=== PATIENT | female | born 1980 | race Caucasian/White ===

== ENCOUNTER 2020-02-02 07:26 | Outpatient (RCR) | payer OTHER, SELFPAY | END 2020-04-30 23:59 | disposition home or self-care (01) | LOC: ANHLAB 07:26 | PROVIDERS: Visit Provider Obstetrics & Gynecology | DX: O20.0 Threatened abortion (principal); Z3A.00 Weeks of gestation of pregnancy not specified | CPT/HCPCS: 36415; 84702; 85461 ==

== ENCOUNTER 2020-09-03 01:21 | Day surgery (SDC) | payer OTHER, SELFPAY ==
[2020-08-22 14:39] VITALS: BMI 24.2
[2020-09-03 06:27] VITALS: BP 102/72; PULSE 71; RESP 16; TEMP 35.8; O2SAT 100
[2020-09-03] MEDS: LACTATED RINGERS 1,000 ML 150 ML IV CONT ×2 (06:30→07:43)
--- NOTE | 2020-09-03 07:25 | PM.HPGS ---
History of Present Illness History of Present Illness Consent: Risks, benefits, and alternatives have been discussed and questions answered. Patient agrees to proceed with procedure. Chief complaint: change in bowel habits Narrative: Carmen Zapata is a 39 year old female with history of constipation, several weeks ago had bout of diarrhea. Review of Systems Constitutional: Constitutional: Denies headache(s) and Denies weakness Eyes: Eyes: Denies blurry vision ENT: Reports Normal hearing present, Denies headache(s) and Denies neck pain Cardiovascular: Cardiovascular: Denies chest pain and Denies dyspnea Respiratory: Respiratory: Denies dyspnea Gastrointestinal: Gastrointestinal: Reports no additional gastrointestinal complaints Genitourinary: Genitourinary: Denies dysuria Musculoskeletal: Musculoskeletal: Denies neck pain Integumentary/Breasts: Skin/Breast: Denies dry skin Neurologic: Reports Normal hearing present, Denies headache(s) and Denies weakness Psychiatric: Psychiatric: Denies anxiety Endocrine: Endocrine: Denies change in body appearance Hematologic/Lymphatic: Hematologic/Lymphatic: Denies easy bleeding Allergic/Immunologic: Allergic/Immunologic: Denies urticaria PMFSH Past Medical History Medical History (Updated 09/03/20 @ 07:25 by Tashi Barajas MD) Constipation Psoriasis Uterine polyp Social History Social History Smoking status: Never smoker Alcohol intake: current Drinks per week: 2 Alcohol use details: WINE Substance use: never Substance use type: does not use Living arrangements: with family Spiritual care concerns: No Meds Home Medications and Allergies Home Medications Medication Instructions Recorded Confirmed Type Elderberry/Zinc 1 tab-cap PO DAILY 08/22/20 09/03/20 History cholecalciferol (vitamin D3) 5,000 unit PO DAILY 08/22/20 09/03/20 History [Vitamin D3] clobetasol 1 applic TOPICAL EVERY OTHER DAY 08/22/20 09/03/20 History Allergies Allergy/AdvReac Type Severity Reaction Status Date / Time clindamycin Allergy Intermediate Hives Verified 09/03/20 06:26 sulfamethoxazole Allergy Intermediate Hives Verified 09/03/20 06:26 trimethoprim Allergy Intermediate Hives Verified 09/03/20 06:26 Vital Signs Vital Signs - 24 hr 09/03/20 06:27 Temperature 96.4 F L Pulse Rate 71 Respiratory Rate 16 Blood Pressure 102/72 Pulse Oximetry 100 Exam Const: General: comfortable and no acute distress HENMT: General nose exam: Normal nares present Eyes: General: appearance normal, both eyes and all related structures Neck: Neck: no JVD Resp: Auscultation: clear to auscultation bilaterally Cardio: Rate: regular rate Rhythm: regular rhythm GI: Inspection: non-distended GI Palp: Yes Soft to palpation Skin: General skin exam: normal color Neuro: General: gait normal Speech: normal speech Extrem: General: normal to inspection Psych: Mental Status: mental status grossly normal Assessment and Plan Assessment and plan (1) Constipation: Code(s): K59.00 - Constipation, unspecified Status: Inactive Assessment and Plan: colonoscopy
[2020-09-03 07:45] VITALS: BP 97/52; PULSE 75; RESP 20; O2SAT 99
[2020-09-03 07:55] VITALS: BP 116/75; PULSE 62; RESP 20; O2SAT 100
[2020-09-03 08:05] VITALS: BP 117/76; PULSE 51; RESP 20; O2SAT 100
[2020-09-03 08:15] VITALS: PULSE 62
== END 2020-09-03 08:17 | disposition home or self-care (01) ==
PROVIDERS: PCP Physician Assistant; Visit Provider Internal Medicine Gastroenterology
PROC: 0DJD8ZZ Inspection of Lower Intestinal Tract, Via Natural or Artificial Opening Endoscopic (ICD-10-PCS; CPT 45378; principal; 2020-09-03 07:30)
DX: K59.00 Constipation, unspecified (principal); L40.9 Psoriasis, unspecified
CPT/HCPCS: 45378; J2704; J7120

== ENCOUNTER 2020-09-18 08:58 | Outpatient (CLI) | payer OTHER, SELFPAY ==
--- NOTE | ~2020-09-18 | MM_ITS ---
EXAMINATION: MM screening verna BI w babatunde HISTORY: Screening mammogram TECHNIQUE: Craniocaudal and mediolateral oblique 3-D tomosynthesis images were obtained and synthetic 2-D images were generated. Bilateral rotated lateral CC views. ....CAD analysis was submitted and in terpreted. COMPARISON: 02/23/2018 bilateral diagnostic digital mammogram and bilateral Limited breast ultrasound 06/16/2017 bilateral diagnostic digital mammogram and limited left breast ultrasound BREAST PARENCHYMAL COMPOSITION: The breasts are heterogeneously dense, which may obscure small masses . FINDINGS: There is no evidence of suspicious mass, calcification, or architectural distortion to sugg est malignancy in either breast. There has been no suspicious interval change. IMPRESSION: 1. No mammographic evidence of malignancy. 2. Recommend routine screening mammography in one year. BI-RADS Category 1: Negative Reviewed, dictated and finalized at location A.
== END 2020-09-18 08:59 | disposition home or self-care (01) ==
LOC: ANHIMG 09:01
PROVIDERS: PCP Physician Assistant; Visit Provider Obstetrics & Gynecology
DX: Z12.31 Encounter for screening mammogram for malignant neoplasm of breast (principal)
CPT/HCPCS: 77063; 77067

== ENCOUNTER 2020-11-01 08:00 | Outpatient (CLI) | payer OTHER, SELFPAY ==
--- NOTE | ~2020-11-01 | US_ITS ---
EXAMINATION: US abdomen complete DATE: 11/01/2020 08:25 INDICATION: Left-sided abdominal pain TECHNIQUE: Multiple grayscale and Doppler ultrasound images of the abdomen were obtained. COMPARISON: None available FINDINGS: The head and body of the pancreas are normal. The pancreatic tail is obscured by bowel gas. The liver is normal with normal echogenicity and echotexture. No surface nodularity. Normal hepatope benji flow in the main portal vein. Stones are present in the nondistended gallbladder. There is no per icholecystic fluid or gallbladder wall thickening. The normal common bile duct measures 3 mm. There w as no sonographic Urias sign. The visualized portions of the aorta and inferior vena cava are normal . The right kidney measures 10.2 x 4.2 x 4.8 cm. The left kidney measures 10.5 x 4.2 x 4.9 cm. The kidn eys demonstrate normal parenchymal echogenicity. There is no hydronephrosis. The spleen is normal in appearance and measures 10.7 cm. IMPRESSION: 1. Cholelithiasis without evidence of cholecystitis. Reviewed, dictated and finalized at location A.
== END 2020-11-01 08:01 | disposition home or self-care (01) ==
PROVIDERS: PCP Physician Assistant; Visit Provider Physician Assistant
DX: R10.9 Unspecified abdominal pain (principal); K80.20 Calculus of gallbladder without cholecystitis without obstruction
CPT/HCPCS: 76700

== ENCOUNTER → 2020-11-08 18:24 | Outpatient (CLI) | payer OTHER, SELFPAY ==
--- NOTE | ~2020-11-08 | XR_ITS ---
EXAMINATION: XR ribs LT 2V w CXR 2V DATE: 11/08/2020 18:47 INDICATION: Pleurodynia with left rib pain TECHNIQUE: Frontal and lateral views of the chest and 3 views of the left ribs were obtained. COMPARISON: Chest radiograph dated FINDINGS: No rib fractures identified. Lungs are clear with no focal airspace opacities, pulmonary edema, pleur al effusion or pneumothorax. Cardiomediastinal silhouette is normal. Bone island at the left glenoid. IMPRESSION: 1. No rib fracture or acute cardiopulmonary disease. Reviewed, dictated and finalized at location A.
== END ==
PROVIDERS: PCP Physician Assistant; Visit Provider Physician Assistant
DX: R07.81 Pleurodynia (principal)
CPT/HCPCS: 71046; 71100

== ENCOUNTER 2021-09-23 07:34 | Outpatient (CLI) | payer BC, SELFPAY ==
--- NOTE | ~2021-09-23 | MM_ITS ---
EXAMINATION: MM screening verna BI w babatunde HISTORY: Screening TECHNIQUE: Craniocaudal and mediolateral oblique 3-D tomosynthesis images were obtained and synthetic 2-D images were generated. CAD analysis was submitted and interpreted. COMPARISON: Comparison to multiple prior studies sequentially, with oldest reviewed study dated 06/16. BREAST PARENCHYMAL COMPOSITION: The breasts are extremely dense, which lowers the sensitivity of mamm ography FINDINGS: There is no evidence of suspicious mass, calcification, or architectural distortion to sugg est malignancy in either breast. There has been no suspicious interval change. IMPRESSION: 1. No mammographic evidence of malignancy. 2. Recommend routine screening mammography in one year. BI-RADS Category 1: Negative Reviewed, dictated and finalized at location A.
== END 2021-09-23 07:35 | disposition home or self-care (01) ==
LOC: ANHIMG 07:35
PROVIDERS: PCP Physician Assistant; Visit Provider Obstetrics & Gynecology
DX: Z12.31 Encounter for screening mammogram for malignant neoplasm of breast (principal)
CPT/HCPCS: 77063; 77067

== ENCOUNTER 2022-09-15 15:11 | Outpatient (CLI) | payer BC, SELFPAY ==
--- NOTE | ~2022-09-15 | MM_ITS ---
EXAMINATION: MM screening verna BI w babatunde HISTORY: Screening mammogram TECHNIQUE: Craniocaudal and mediolateral oblique 3-D tomosynthesis images were obtained and synthetic 2-D images were generated. CAD analysis was submitted and interpreted. COMPARISON: No prior mammogram is available for comparison at this institution. BREAST PARENCHYMAL COMPOSITION: FINDINGS: There is no evidence of suspicious mass, calcification, or architectural distortion to sugg est malignancy in either breast. There has been no suspicious interval change. IMPRESSION: 1. No mammographic evidence of malignancy. 2. Recommend routine screening mammography in one year. BI-RADS Category 1: Negative Reviewed, dictated and finalized at location A.
== END 2022-09-15 15:12 | disposition home or self-care (01) ==
LOC: ANHIMG 15:15
PROVIDERS: PCP Obstetrics & Gynecology; Visit Provider Physician Assistant
DX: Z12.31 Encounter for screening mammogram for malignant neoplasm of breast (principal)
CPT/HCPCS: 77063; 77067

== ENCOUNTER 2023-08-11 16:28 | Emergency (ER) | payer BC, SELFPAY ==
--- NOTE | 2023-08-11 16:33 | ED.URI ---
HPI - URI/Sore Throat General Chief Complaint: Upper Respiratory Infection Stated Complaint: congestion,sinus drainage Time Seen by Provider: 08/11/23 16:42 Source: patient, RN notes reviewed and old records reviewed Mode of arrival: ambulatory Limitations: no limitations History of Present Illness HPI Narrative: 42-year-old female presents to the [facility] with congestion and sinus drainage for 4 weeks States she has been taking elderberry Reports that whenever she mows her grass the symptoms get worse. Did try 1 dose of cold and sinus medication today Onset (ago): week(s) (4) Related Data Home Medications Medication Instructions Recorded Confirmed clobetasol 0.05 % topical ointment 1 applic topical EVERY OTHER DAY 08/22/20 08/11/23 Allergies Allergy/AdvReac Type Severity Reaction Status Date / Time clindamycin Allergy Intermediate Hives Verified 08/11/23 16:43 sulfamethoxazole Allergy Intermediate Hives Verified 08/11/23 16:43 trimethoprim Allergy Intermediate Hives Verified 08/11/23 16:43 Review of Systems Review of Systems: All systems reviewed & are unremarkable except as noted in HPI and below Constitutional: Constitutional: Reports no additional constitutional complaints Eyes: Eyes: Reports no additional eye complaints ENT: Reports as per HPI, Reports nasal congestion and Reports sinus pressure Cardiovascular: Cardiovascular: Reports no additional cardiovascular complaints, Denies chest pain and Denies dyspnea Respiratory: Respiratory: Reports no additional respiratory complaints, Denies chest congestion, Denies cough and Denies dyspnea Gastrointestinal: Gastrointestinal: Reports no additional gastrointestinal complaints, Denies abdominal pain, Denies nausea and Denies vomiting Musculoskeletal: Musculoskeletal: Reports no additional musculoskeletal complaints Integumentary/Breasts: Skin/Breast: Reports system reviewed and no additional complaints, except as docu Neurologic: Reports system reviewed and no additional complaints, except as documented Psychiatric: Psychiatric: Reports no additional psychiatric complaints Allergic/Immunologic: Allergic/Immunologic: Reports no additional allergic/immunologic complaints PMFSH Past Medical History Medical History Constipation Psoriasis Uterine polyp Social History Social History Smoking status: Never smoker Alcohol intake: current Drinks per week: 2 Alcohol use details: WINE Substance use: never Substance use type: does not use Living arrangements: with family Spiritual care concerns: No Comments At the time of my signature, I reviewed and agree with the nursing past medical, surgical, social, and family history. There is no relevant family history pertinent to the patient complaint. Exam Const: General: cooperative, healthy appearing, comfortable, no acute distress, well developed, alert and well nourished Nutritional Appearance: well nourished Orientation/consciousness: patient oriented x3 Limitations: no limitations HENMT: Head: normal to inspection Ears: hearing grossly normal bilaterally, external ears normal, TM's normal bilaterally, EAC's normal, mastoids normal and no periauricular adenopathy Face/Nose/Sinus: Normal external nose present, Normal nares present, Normal nasal mucous membranes and turbinates present, normal facial exam and face symmetric Face and sinus: normal facial exam and face symmetric Mouth: Yes Normal oral and palatal mucosa present, Yes lip normal and Yes moist mucous membranes Throat: posterior oropharynx normal, tonsils normal, uvula midline and postnasal drainage Eyes: General: appearance normal, both eyes and all related structures Alignment and Position: alignment normal Periorbital: periorbital findings normal Pupils: Equal, round and reactive pupils present EOM: EOMs intact bilater
[2023-08-11 16:35] VITALS: BP 119/79; PULSE 70; RESP 16; TEMP 36.3; O2SAT 100
== END 2023-08-11 17:25 | disposition home or self-care (01) ==
PROVIDERS: Emergency Provider Nurse Practitioner; PCP Physician Assistant
DX: J32.9 Chronic sinusitis, unspecified (principal); L40.9 Psoriasis, unspecified
CPT/HCPCS: 99213; G0463

== ENCOUNTER 2023-10-13 07:18 | Outpatient (CLI) | payer BC, SELFPAY ==
--- NOTE | ~2023-10-13 | MM_ITS ---
EXAMINATION: MM screening verna BI w babatunde HISTORY: Screening TECHNIQUE: Craniocaudal and mediolateral oblique 3-D tomosynthesis images were obtained and synthetic 2-D images were generated. CAD analysis was submitted and interpreted. COMPARISON: Comparison to multiple prior studies sequentially, with oldest reviewed study dated 06/16. BREAST PARENCHYMAL COMPOSITION: Dense: The breasts are heterogeneously dense, which may obscure small masses FINDINGS: There is no evidence of suspicious mass, calcification, or architectural distortion to sugg est malignancy in either breast. There has been no suspicious interval change. IMPRESSION: 1. No mammographic evidence of malignancy. 2. Recommend routine screening mammography in one year. BI-RADS Category 1: Negative Reviewed, dictated and finalized at location B.
== END 2023-10-13 07:19 | disposition home or self-care (01) ==
LOC: ANHIMG 07:19
PROVIDERS: PCP Physician Assistant; Visit Provider Nurse Practitioner
DX: Z12.31 Encounter for screening mammogram for malignant neoplasm of breast (principal)
CPT/HCPCS: 77063; 77067

== ENCOUNTER 2024-09-22 11:33 | Outpatient (CLI) | payer BC, SELFPAY ==
--- NOTE | ~2024-09-22 | XR_ITS ---
HISTORY: CHRONIC MEDIAL POSTERIOR RIGHT KNEE PAIN WORSEN PAST WEEK COMPARISON: None TECHNIQUE: 3 views of the right knee were performed FINDINGS: No acute or subacute fracture. Medial tibiofemoral joint space narrowing is identified. Moderate suprapatellar joint effusion is identified. The infrapatellar joint space is clear. Narrowing of the patellofemoral joint space is noted. 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 Reviewed, dictated and finalized at location A. 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
== END 2024-09-22 11:34 | disposition home or self-care (01) ==
PROVIDERS: PCP Physician Assistant; Visit Provider Physician Assistant
DX: M17.11 Unilateral primary osteoarthritis, right knee (principal); M25.461 Effusion, right knee
CPT/HCPCS: 73562

== ENCOUNTER 2024-10-20 07:39 | Outpatient (CLI) | payer BC, SELFPAY ==
--- NOTE | ~2024-10-20 | MM_ITS ---
EXAMINATION: screening [facility] BI w babatunde INDICATION: Asymptomatic, referred for screening mammogram COMPARISON: 10/13/2023 through 09/18/2020 TECHNIQUE: Digital Breast Tomosynthesis CC, MLO views of Both breasts were obtained with computer-ai ded detection to assist in interpretation of the study. FINDINGS: The breasts are heterogeneously dense, which may obscure small masses. There is a superficial asymmetry seen on the cc view in the Lateral left at anterior depth. Elsewhere, there are no mammographic features of malignancy. IMPRESSION: 1. Left breast Asymmetry. 2. No evidence of malignancy in the Right breast. RECOMMENDATION: Left breast Diagnostic mammogram with true lateral, appropriate spot compression views and an ultraso und if needed. BI-RADS Category 0: Incomplete: Needs additional imaging evaluation. Reviewed, dictated and finalized at location B. IMPRESSION: 1. Left breast Asymmetry. 2. No evidence of malignancy in the Right breast. RECOMMENDATION: Left breast Diagnostic mammogram with true lateral, appropriate spot compressio n views and an ultrasound if needed. BI-RADS Category 0: Incomplete: Needs additional imaging evaluation.
--- OUTSIDE RECORDS SUMMARY | 2024-10-20 07:44 | XMS_ITS | Data Portability ---
Author Organization [place] - [employer] , [employer] [facility] Address [address] [place] [address] Assessment Encounter Date Assessment Date Assessment LastModified by Organization Details LastModified Time 03/24/2024 03/24/2024 Ddx: Viral Conjunctivitis, Bacterial Conjunctivitis, Allergic Conjunctivitis A: Highly suggestive of a stye versus a clogged Meimobian gland. P: Provided counseling to the patient as noted below: Avoid contact lens use until condition totally resolves Avoid use of contaminated eye drops or makeup Good hand hygiene Monitor for eye pain, continued eye discharge, or change in vision Counseled on the importance of follow up if symptoms not improving with recommended treatment plan. Patient to be seen for repeat evaluation if symptoms worsen, counseled on red flag symptoms to indicate need for emergent follow up. Patient expressed understanding and agreement with treatment plan as outlined. Not available 03/24/2024 10:53:34 Plan of Treatment Reminders Order Date Submit Date Provider Last Modified By Organization Details Last Modified Time Details Appointments None record ed. Lab None record ed. Referral None record ed. Procedures None record ed. Surgeries None record ed. Imaging None record ed. Medication Orders None record ed. Patient TargetsNo targets recorded. Patient Instructions Encounter Date Encounter Id Patient Instructions Last Modified By Organization Details Last Modified Time 03/24/2024 [id number] styes and chalazia: care instructions Not available 03/24/2024 10:50:39 Avoid contact le ns use until condition totally resolves Avoid use of contaminated eye drops or makeup Good hand hygiene Monitor for eye pain, continued eye discharge, or change in vision Counseled on the importance of follow up if symptoms not improving with recommended treatment plan. Patient to be seen for repeat evaluation if symptoms worsen, counseled on red flag symptoms to indicate need for emergent follow up. Patient expressed understanding and agreement with treatment plan as outlined. Not available 03/24/2024 10:50:38 Reason for Referral None Reported. Problems No Known Problems Medical Equipment None Reported. Allergies Allergen ID Allergen Name Allergen Category Reaction Reaction Severity Criticality Documentation Date Start Date Code Code System Note Provider Name and Address Organization Details Recorded Time 200286 sulfameth oxazole / trimethop rim medicatio n Not available Not available Not available 03/24/2024 34977 RxNorm Not Available Included [facility] 10:13:05 [id number] clindamyc in Not available Not available Not available Not available 03/24/2024 2582 RxNorm Not Available Included [facility] 10:13:05 Medications Name Sig Start Date Stop Date Status Note LastModified by Organization Details LastModified Time nitrofuranto in monohydrate/ macrocrystal s 100 mg capsule active Not Available Not Available Not Available UNLISTED MEDICATION [Migrated medication name:] Fluocinonid e-E topical::as needed on scalp- 2x we active Not Available Not Available No t Available UNLISTED MEDICATION [Migrated medication name:] clobetasoL topical::ev arthur other day active Not Available Not Available No t Available Rain Allergy active Not Available Not Available Not Available Vitals Date Recorded Body height Body mass index (BMI) Body weight Provider Name and Address Organization Details Last Updated DateTime 03/24/2024 167.64 cm 25.8 kg/m2 70150.78 g DEAN Nolasco [address] [place] [address] [address], [address], [place] - Included [facility] 03/24/2024 10:41:19 Social History None recorded. Functional Status None recorded. Mental Status None recorded. Family History Nothing Reported. Medical History No medical history recorded. Gynecological HistoryNo gynecological history recorded. Obstetrics History GPAL:G 0 P 0 0 0 0 Past Encounters Encounter ID Performer Location Encounter Start Date Encounter Closed Date Diagnosis/Indication Diagnosis SNOMED-CT Code Diagnosis ICD10 Code Diagnosis Note [id number] DEAN Nolasco [facility] [address] [place] [address] 03/24/2024 10:39:46 03/24/2024 16:50:37 Hordeolum externum of lower eyelid of right eye [id number] 22128 H00.012 Health Concerns Section Related Observation LastModified by Organization Detai ls LastModified Time None Recorded Concern Status LastModified by Organization Details LastModified Time None Recorded Advance Directives Directive None Recorded Payers Insurance Date Sequence Insurance Name Policy Number Policy Kline Covered Member ID Kline Member ID Guarantor Name 03/24/2024 1 *SELF PAY* Carmen Zapata [place] Carmen Zapata 03/24/2024 1 *SELF PAY* Ca Benny Notes Date Note Type Note Provider Name and Address Organization Details Recorded Time 03/24/2024 text/html ROS as noted in the HPI Call connected, patient greeted. Patient name , location, and phone number confirmed. Verbal consent obtained to treat this patient via the telemedicine/video platform. Patient understands that there are limitations to my evaluation. Clinician attests that the clinician is physically located in the following state at the time of visit: [place] Onset and duration of symptoms: The patient reports that she has woke up with right lower eyelid discomfort that started yesterday. She has had URI symptoms over the past few weeks. She has tried lubricating drops with no relief. Eye pain: NoItchiness: NoRedness: NoWatering: NoDischarge: NoMattering: NoCrusting: YesChange in vision: NoFB sensation: NoGritty: NoPhotophobia: NoCold symptoms: YesNasal drainage: YesFever (Tmax): NoAdditional symptoms: No OTC medications used: Lubricating Eye DropsRecent topical antibiotic or eye drops used: Lubricating Eye DropsHistory of contact lens use: NoHistory of past conjunctivitis: YesHistory of allergies, asthma, seasonal/allergic rhinitis: Yes- AllergiesIf YES, medications used:History of recent URI: YesHistory of recent eye trauma: NoHistory of glaucoma: No : NoBreastfeeding: No DEAN Nolasco [address] [facility] [address], [place], [address], [place] [facility] 03/24/2024 10:53:37 OBGyn Episode No OBEpisode recorded.
--- OUTSIDE RECORDS SUMMARY | 2024-10-20 07:44 | XMS_ITS | Clinical Summary ---
Author Organization [facility] Address [address] [place] [address] Care Team Providers Care Surgery Attendant Name Role Phone Daniella Toscano Primary Care Pr ovider Maria Del Rosario Chen MD Unavailable [phone] [facility],non-owned Affiliates and Associated Physician Practices is amultiple site organization consisting of ambulatory clinics and hospital sitesin [place], [place], [place] and [place]. This disclosure is being madepursuant to the Care Everywhere program and may not contain all information available regarding this patient. Last updated 17.[facility] Allergies Active Allergy Reactions Criticality Noted Date Comments Bactrim Rash 11/09/2008 Sulfamethoxazole W-Trimethoprim Itching 11/28 Clindamycin Itching 12/11/2015 Medications * Be aware that medications may not be up to date on this document. Alwaysverify current medications with the patient. MINOCYCLINE HCL POIndications: Muscle relaxation Take by mouth. As directed Active acetaminophen (TYLENOL) 325 MG tablet Take 650 mg by mouth every 4 hours as needed. Maximum allowable Acetaminophen amount = 4 Grams / 24 hours. Active Loperamide HCl (IMODIUM PO) Take 1 Tab by mouth as needed. 0 Active Norgestim-Eth Estrad Triphasic (NORGESTIMATE- ETHINYL ESTRADIOL PO) Take by mouth as directed Active Active Problems Problem Noted Date Diagnosed Date Acne 04/05/2009 Syncope and collapse 11/09/2008 Family History Medical History Relation Name Comments Hypercholesterolemia Father Hypertension Mother Hypercholesterolemia Sister Relation Name Status Comments Father Mother Sister Social History Tobacco Use Types Packs/Day Years Used Date Smoking Tobacco: Never Smokeless Tobacco: Never Tobacco Cessation:Counseling Given: No Alcohol Use Standard Drinks/Week Comments Yes 0 (1 standard drink = 0.6 oz pure alcohol) glass of wine or gin few times per week Comments No Sex and Gender Information Value Date Recorded Sex Assigned at Not on file Legal Sex Female 12:02 PM CDT Gender Identity Not on file Sexual Orientation Not on file Last Filed Vital Signs Vital Sign Reading Time Taken Comments Blood Pressure 127/80 06/18/2016 6:52 PM CDT Pulse 72 06/18/2016 6:52 PM CDT Temperature 36.7 C (98.1 F) 06/18/2016 6:52 PM CDT Respiratory Rate 15 06/18/2016 6:52 PM CDT Oxygen Saturation 100% 06/18/2016 6:52 PM CDT Inhaled Oxygen Concentration - - Weight 70.3 kg (155 lb) 06/18/2016 3:01 PM CDT Height 167.6 cm (5' 6) 06/18/2016 3:01 PM CDT Body Mass Index 25.02 06/18/2016 3:01 PM CDT Plan of Treatment Health Maintenance Due Date Last Done Comments LIPID TESTING 1980 MAMMOGRAM 1980 HIV SCREENING 12/16/1995 HEPATITIS C SCREENING 12/11/1998 DTAP/TDAP/TD VACCINES (1 - Tdap) 12/16/1999 HEPATITIS B VACCINE (1 of 3 - 19+ 3-dose series) 12/16/1999 HPV VACCINE (1 - 3-dose SCDM series) 12/16/2007 COVID-19 VACCINE ( - 2023-2 5 season) 2023 DEPRESSION SCREENING 03/30/2024 INFLUENZA VACCINE (#1) 2024 ZOSTER VACCINE (1 of 2) 2030 HIB VACCINE Aged Out No longer eligi ble based on patient's age to complete this topic MENINGOCOCCAL (Group B) VACC INE SHARED DECISION-MAKING Aged Out No longer eligibl e based on patient's age to complete this topic MENINGOCOCCAL GROUPS A/C/Y/W VACCINE Aged Out No longer eligible b ased on patient's age to complete this topic PNEUMOCOCCAL VACCINE Aged Out No long er eligible based on patient's age to complete this topic Insurance [employer] Care Teams Surgery Attendant Relationship Specialty Start Date End Date Daniella Toscano PA [address] [place] [id number] PCP - General Physician House Mover Helper 12/11/15 [place] [address] [facility] [address] [place] [id number] 12/11/15
--- OUTSIDE RECORDS SUMMARY | 2024-10-20 07:44 | XMS_ITS | Encounter Summary ---
Author Organization [facility] Address [address] [place] [address] Care Team Providers Care Respiratory Supervisor Name Role Phone Camryn Alonzo MD Primary Care Provider [phone] Encounter Details Date Type Department Care Team (Late st Contact Info) Description 12/18/1998 Outpatient Historical [facility] 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
--- OUTSIDE RECORDS SUMMARY | 2024-10-20 07:44 | XMS_ITS | Encounter Summary ---
Author Organization [facility] Address [address] [place] [address] Care Team Providers Care Flow Floor Attendant Name Role Phone Camryn Alonzo MD Primary Care Provider [phone] Encounter Details Date Type Department Care Team (Late st Contact Info) Description 01/22/1999 Outpatient Historical [facility] 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
--- OUTSIDE RECORDS SUMMARY | 2024-10-20 07:44 | XMS_ITS | Clinical Summary ---
Author Organization [facility] Fredy Sawyer Address [address] [place] [address] Care Team Providers Care Viticulturist Name Role Phone Camryn Alonzo MD Primary Care Provider [phone] Allergies Active Allergy Reactions Criticality Noted Date Comments Clindamycin Hives High 07/12/2012 Sulfamethoxazole-Trimethoprim Hives High 2011 Medications NORGESTIMATE-ETH INYL ESTRADIOL (ORTHO-CYCLEN, 28, ORAL) Take by mouth. Active Lactobac no.41/Bifidobact no.7 (PROBIOTIC-10 ORAL) Take by mouth daily. Active homeopathic drugs (ENZYME ORAL) Take by mouth daily. Active Active Problems Problem Noted Date Diagnosed Date Breast lump 04/15/2018 Allergic rhinitis 10/20/2012 Acne 05/27/2012 IBS (irritable bowel syndrome) 05/27/2012 Family History Medical History Relation Name Comments High Cholesterol Father Liver Disease Father Breast Cancer Maternal Grandmother Melanoma Maternal Grandmother Heart Disease Mother Colon Cancer Paternal Grandfather Diabetes Sister High Cholesterol Sister Relation Name Status Comments Father Alive Maternal Grandfather Maternal Grandmother Alive Mother Alive Paternal Grandfather Paternal Grandmother Alive Sister Alive Social History Tobacco Use Types Packs/Day Years Used Date Smoking Tobacco: Never Smokeless Tobacco: Never Alcohol Use Standard Drinks/Week Comments Yes 0 (1 standard drink = 0.6 oz pur e alcohol) OCCASSIONAL Comments No Sex and Gender Information Value Date Recorded Sex Assigned at Not on file 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 Gender Identity Not on file Sexual Orientation Not on file Occupation Industry Job Start Date Job End Date Not on file Not on file Not on file Not on file Last Filed Vital Signs Vital Sign Reading Time Taken Comments Blood Pressure 136/88 04/15/2018 1:51 PM DEFECT CUTTER Pulse 65 04/15/2018 1:51 PM DEFECT CUTTER Temperature 36.8 C (98.2 F) 04/15/2018 1:51 PM DEFECT CUTTER Respiratory Rate 16 02/06/2014 3:57 PM DEFECT CUTTER Oxygen Saturation 98% 04/15/2018 1:51 PM DEFECT CUTTER Inhaled Oxygen Concentration - - Weight 75 kg (165 lb 4.8 oz) 04/15/2018 1:51 PM DEFECT CUTTER Height 167.6 cm (5' 6) 04/15/2018 1:51 PM DEFECT CUTTER Body Mass Index 26.68 04/15/2018 1:51 PM DEFECT CUTTER Plan of Treatment Health Maintenance Due Date Last Done Comments HPV VACCINES (1 - 3-dose series) 12/16/1995 DTAP/TDAP/TD VACCINES (1 - Tdap) 12/16/1999 HEPATITIS B VACCINES (1 of 3 - 19+ 3-dose series) 12/16/1999 HPV/Cotest (21-29) 2001 HPV/Cotest (30-65) 2010 CERVICAL CANCER SCREENING 05/27/2015 PAP SMEAR 05/27/2015 05/27/2012, 04/30, 05/12/2010 BREAST CANCER SCREENING 2020 02/23/2018, 06/16 INFLUENZA VACCINE (#1) 2024 Procedures Procedure Name Priority Date/Time Associated Diagnosis Comments MAMMO DIAGNOSTIC BILATERAL W OR WO CAD Routine 02/23/2018 CERV/VAG CYTOPATH, SUREPATH W/RFLX HPV Routine 05/27/2012 1:40 PM DEFECT CUTTER Screening for malignant neoplasm of the cervix from Last 3 Months or Most Recently Relevant to Health Maintenance Results * MAMMO DIAGNOSTIC BILATERAL W OR WO CAD (02/23/2018) Anatomical Region Laterality Modality Breast Bilateral Mammography us Abstract Provider MAMMO ORDERABLES Final Result * CERV/VAG CYTOPATH, SUREPATH W/RFLX HPV (05/27/2012 1:40 PM DEFECT CUTTER) CLINICAL INFORMATION HEALTHY [facility] [employer] [facility] LAST MENSTRUAL PERIOD 05/18/2012 [facility] [employer] [facility] PAP INTERP Negative for intraepithelial lesion or malignancy. 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 [facility] [employer] [facility] ADEQUACY: Satisfactory for evaluation. Endocervical/trans formation zone component present. [facility] [employer] [facility] SOURCE Endocervix [facility] [employer] [facility] PREV PAP: WNL [facility] [employer] [facility] CYTOTECHNOLOGI ST: [place], [place](ASCP) [facility] [employer] [facility] PREV BX: NO [facility] [employer] [facility] Endocervical 05/27/2012 1:40 PM DEFECT CUTTER 05/27/2012 8:30 PM DEFECT CUTTER Comment:ENDOCERVICAL us Denise Elmore MD PATHOLOGY/CYTOLOGY ORDERABLES E dited [facility] [employer] [facility] CLIA# [id number] [address] [place] [address] from Last 3 Months or Most Recently Relevant to Health Maintenance Insurance [facility] [id number] Care Teams Viticulturist Relationship Specialty Start Date End Date Camryn Alonzo MD [address] [place] [address] PCP - General Obstetrics and Gynecology 04/06/18
--- OUTSIDE RECORDS SUMMARY | 2024-10-20 07:44 | XMS_ITS | Data Portability ---
Author Organization JOHNNY HELENEAshleigh Carey Address [address] [place] [address] Care Team Providers Care Amr Physician Name Role Phone RADHIKA COKER Primary Care Provider Unavailab le Assessment Encounter Date Assessment Date Assessment LastModified by Organization Details LastModified Time 08/28/2023 08/28/2023 mammogram UTD pap smear uTD eye exam UTD dental UTD Not available 08/28/2023 12:54:02 08/29/2024 08/29/2024 mammogram UTD scheduled pap smear uTD eye exam UTD dental UTD Colonoscopy September 03, 2020 Not available 08/29/2024 11:39:40 Plan of Treatment Reminders Order Date Submit Date Provider Last Modified By Organization Details Last Modified Time Details Appointments None recorded. Lab TSH + free T4, serum 2024 025 [facility], [address], [place], [address], 07:07:51 lipid panel, serum 2024 025 [facility], [address], [place], [address], 5 07:07:50 CMP, serum or plasma 2024 025 [facility], [address], [place], [address], 5 07:07:52 CBC w/ auto diff 2024 025 [facility], [address], [place], [address], 5 07:07:55 vitamin B12 + folate, serum or blood 2024 025 [facility], [address], [place], [address], 5 07:07:53 HbA1c (hemoglobi n A1c), blood 2024 025 [facility], [address], [place], [address], 5 07:07:54 TSH + free T4, serum 2023 024 [facility], [address], [place], [address], 4 12:37:31 lipid panel, serum 2023 024 [facility], [address], [place], [address], 4 12:37:30 CMP, serum or plasma 2023 024 [facility], [address], [place], [address], 4 12:37:32 CBC w/ auto diff 2023 024 [facility], [address], [place], [address], 4 12:37:36 vitamin B12 + folate, serum or blood 2023 024 [facility], [address], [place], [address], 4 12:37:34 urinalysis complete, reflex culture 2023 [facility], [address], [place], [address], 4 12:37:33 HbA1c (hemoglobi n A1c), blood 2023 [facility] [facility], [address], [place], [address], 4 12:37:35 Referral None recorded. Procedures None recorded. Surgeries None recorded. Imaging None recorded. Medication Orders fluconazol e 150 [id number], [address], [place], [place], [id number], 11:21:13 Patient TargetsNo targets recorded. Patient Instructions Encounter Date Encounter Id Patient Instructions Last Modified By Organization Details Last Modified Time 08/29/2024 [id number] A healthy lifestyle: care instructions Not available 08/29/2024 11:37:27 Reason for Referral None Reported. Results Created Date Observation Date Name Description Value Unit Range Abnormal Flag Note LastModifiedBy Organization Detail LastModifiedTime 08/31/19 24 09/01/2023 LIPID PANEL W/ CHOL/ HDL RATIO cholesterol, total 171 mg/dL 100-19 9 Not Available [facility] ([facility]) [address] [facility], [place], [address], 09/01/2023 12:37:29 08/31/19 24 09/01/2023 LIPID PANEL W/ CHOL/ HDL RATIO triglyceride s 42 mg/dL 0-149 Not Available [facility] ([facility]) [address] [facility], [place], [address], 09/01/2023 12:37:29 08/31/19 24 09/01/2023 LIPID PANEL W/ CHOL/ HDL RATIO HDL cholesterol 73 mg/dL >39 Not Available [facility] ([facility]) [address] [place], [address], 09/01/2023 12:37:29 08/31/19 24 09/01/2023 LIPID PANEL W/ CHOL/ HDL RATIO VLDL cholesterol minnie 9 mg/dL 5-40 Not Available [facility] ([facility]) [address] [place], [address], 09/01/2023 12:37:29 08/31/19 24 09/01/2023 LIPID PANEL W/ CHOL/ HDL RATIO LDL chol calc ([facility]) 89 mg/dL 0-99 Not Available [facility] ([facility]) [address] [place], [address], 09/01/2023 12:37:29 08/31/19 24 09/01/2023 LIPID PANEL W/ CHOL/ HDL RATIO T. chol/HDL ratio 2.3 ratio 0.0-4. 4 T. Chol/ HDL Ratio Men Women 1/2 Avg.R isk 3.4 3.3 Avg.R isk 5.0 4.4 2X Avg.R isk 9.6 7.1 3X Avg.R isk 23.4 11.0 Not Available [facility] ([facility]) [address] [place], [address], 09/01/2023 12:37:29 08/31/19 24 09/01/2023 TSH+F REE T4 TSH 2.010 uIU/m L 0.450- 4.500 Not Available [facility] ([facility]) [address] [place], [address], 09/01/2023 12:37:31 08/31/19 24 09/01/2023 TSH+F REE T4 T4,free(dire ct) 1.34 NG/dL 0.82-1 .77 Not Available [facility] ([facility]) [address] [place], [address], 09/01/2023 12:37:31 08/31/19 24 09/01/2023 COMP. METAB OLIC PANEL (14) glucose 89 mg/dL 70-99 Not Available [facility] ([facility]) [address] [facility] [place], [address], 09/01/2023 12:37:32 08/31/19 24 09/01/2023 COMP. METAB OLIC PANEL (14) BUN 10 mg/dL 6-24 Not Available [facility] ([facility]) [address] [place], [address], 09/01/2023 12:37:32 08/31/19 24 09/01/2023 COMP. METAB OLIC PANEL (14) creatinine 0.71 mg/dL 0.57-1 .00 Not Available [facility] ([facility]) [address] [facility], [place], [address], 09/01/2023 12:37:32 08/31/19 24 09/01/2023 COMP. METAB OLIC PANEL (14) eGFR 109 mL/mi n/1.7 3 >59 Not Available [facility] ([facility]) [address] [facility] [place], [address], 09/01/2023 12:37:32 08/31/19 24 09/01/2023 COMP. METAB OLIC PANEL (14) BUN/creatini ne ratio 14 9-23 Not Available [facility] ([facility]) [address] [place], [address], 09/01/2023 12:37:32 08/31/19 24 09/01/2023 COMP. METAB OLIC PANEL (14) sodium 138 mmol/ L 134-14 4 Not Available [facility] ([facility]) [address] [place], [address], 09/01/2023 12:37:32 08/31/19 24 09/01/2023 COMP. METAB OLIC PANEL (14) potassium 4.4 mmol/ L 3.5-5. 2 Not Available [facility] ([facility]) [address], [place], [address], 09/01/2023 12:37:32 08/31/19 24 09/01/2023 COMP. METAB OLIC PANEL (14) chloride 102 mmol/ L 96-106 Not Available [facility] ([facility]) [address], [place], [address], 09/01/2023 12:37:32 08/31/19 24 09/01/2023 COMP. METAB OLIC PANEL (14) carbon dioxide, total 25 mmol/ L 20-29 Not Available [facility] ([facility]) [address] [place], [address], 09/01/2023 12:37:32 08/31/19 24 09/01/2023 COMP. METAB OLIC PANEL (14) calcium 9.7 mg/dL 8.7-10 .2 Not Available [facility] ([facility]) [address], [place], [address], 09/01/2023 12:37:32 08/31/19 24 09/01/2023 COMP. METAB OLIC PANEL (14) protein, total 6.3 g/dL 6.0-8. 5 Not Available [facility] ([facility]) [address] [facility] [place], [address], 09/01/2023 12:37:32 08/31/19 24 09/01/2023 COMP. METAB OLIC PANEL (14) albumin 4.2 g/dL 3.9-4. 9 Not Available [facility] ([facility]) [address] [facility] [place] [place], [address], 09/01/2023 12:37:32 08/31/19 24 09/01/2023 COMP. METAB OLIC PANEL (14) globulin, total 2.1 g/dL 1.5-4. 5 Not Available [facility] ([facility] [facility]) [address] [facility] [place], [address], 09/01/2023 12:37:32 08/31/19 24 09/01/2023 COMP. METAB OLIC PANEL (14) A/G ratio 2.0 1.2-2. 2 Not Available [facility] ([facility]) [address] [facility], [place], [address], 09/01/2023 12:37:32 08/31/19 24 09/01/2023 COMP. METAB OLIC PANEL (14) bilirubin, total 0.4 mg/dL 0.0-1. 2 Not Available [facility] ([facility]) [address] [facility], [place], [address], 09/01/2023 12:37:32 08/31/19 24 09/01/2023 COMP. METAB OLIC PANEL (14) alkaline phosphatase 59 IU/L 44-121 Not Available [facility] ([facility]) [address] [facility], [place], [address], 09/01/2023 12:37:32 08/31/19 24 09/01/2023 COMP. METAB OLIC PANEL (14) AST (SGOT) 18 IU/L 0-40 Not Available [facility] ([facility]) [address] [facility], [place], [address], 09/01/2023 12:37:32 08/31/19 24 09/01/2023 COMP. METAB OLIC PANEL (14) ALT (SGPT) 13 IU/L 0-32 Not Available [facility] ([facility]) [address] [facility], [place], [address], 09/01/2023 12:37:32 08/31/19 24 09/01/2023 UA WITH CULTU RE REFLE X specific gravity 1.011 1.005- 1.030 Not Available [facility] ([facility]) [address] [facility], [place], [address], 09/01/2023 12:37:33 08/31/19 24 09/01/2023 UA WITH CULTU RE REFLE X pH 7.5 5.0-7. 5 Not Available [facility] ([facility]) [address] [facility], [place], [address], 09/01/2023 12:37:33 08/31/19 24 09/01/2023 UA WITH CULTU RE REFLE X urine-color YELLOW yellow Not Available [facility] ([facility]) [address] [facility], [place], [address], 09/01/2023 12:37:33 08/31/19 24 09/01/2023 UA WITH CULTU RE REFLE X appearance CLEAR clear Not Available [facility] ([facility]) [address] [facility], [place], [address], 09/01/2023 12:37:33 08/31/19 24 09/01/2023 UA WITH CULTU RE REFLE X WBC esterase NEGATI VE negati ve Not Available [facility] ([facility]) [address] [facility], [place], [address], 09/01/2023 12:37:33 08/31/19 24 09/01/2023 UA WITH CULTU RE REFLE X protein NEGATI VE negati ve/tra ce Not Available [facility] ([facility]) [address] [facility], [place], [address], 09/01/2023 12:37:33 08/31/19 24 09/01/2023 UA WITH CULTU RE REFLE X glucose NEGATI VE negati ve Not Available [facility] ([facility]) [address] [place], [address], 09/01/2023 12:37:33 08/31/19 24 09/01/2023 UA WITH CULTU RE REFLE X ketones NEGATI VE negati ve Not Available [facility] ([facility]) [address] [place], [address], 09/01/2023 12:37:33 08/31/19 24 09/01/2023 UA WITH CULTU RE REFLE X occult blood NEGATI VE negati ve Not Available [facility] ([facility]) [address] [facility], [place], [address], 09/01/2023 12:37:33 08/31/19 24 09/01/2023 UA WITH CULTU RE REFLE X bilirubin NEGATI VE negati ve Not Available [facility] ([facility]) [address] [facility], [place], [address], 09/01/2023 12:37:33 08/31/19 24 09/01/2023 UA WITH CULTU RE REFLE X urobilinogen ,semi-qn 0.2 mg/dL 0.2-1. 0 Not Available [facility] ([facility]) [address] [facility], [place], [address], 09/01/2023 12:37:33 08/31/19 24 09/01/2023 UA WITH CULTU RE REFLE X nitrite, urine NEGATI VE negati ve Not Available [facility] ([facility]) [address] [facility], [place], [address], 09/01/2023 12:37:33 08/31/19 24 09/01/2023 UA WITH CULTU RE REFLE X microscopic examination COMMEN T Micro scopi c not indic ated and not perfo rmed. Not Available [facility] ([facility]) [address] [facility], [place], [address], 09/01/2023 12:37:33 08/31/19 24 09/01/2023 UA WITH CULTU RE REFLE X urinalysis reflex COMMEN T This speci men will not refle x to a Urine Cultu re. Not Available [facility] ([facility]) [address] [facility], [place], [address], 09/01/2023 12:37:33 08/31/19 24 09/01/2023 VITAM IN B12 AND FOLAT E vitamin B12 807 pg/mL 232-12 45 Not Available [facility] ([facility]) [address] [facility], [place], [address], 09/01/2023 12:37:34 08/31/19 24 09/01/2023 VITAM IN B12 AND FOLAT E folate (folic acid), serum 14.9 NG/mL >3.0 A serum folat e kathia ntrat ion of less than 3.1 ng/mL is consi dered to repre sent clini minnie defic iency . Not Available [facility] ([facility]) [address] [facility], [place], [address], 09/01/2023 12:37:34 08/31/19 24 09/01/2023 HEMOG LOBIN A1C hemoglobin A1C 5.0 % 4.8-5. 6 Predi abete s: 5.7 - 6.4 Diabe nury: >6.4 Glyce sandra contr ol for adult s with diabe nury: <7.0 Not Available [facility] ([facility]) [address] [facility], [place], [address], 09/01/2023 12:37:35 08/31/19 24 09/01/2023 CBC WITH DIFFE RENTI AL/PL ATELE T WBC 4.7 x10e3 /uL 3.4-10 .8 Not Available [facility] ([facility]) [address] [facility], [place], [address], 09/01/2023 12:37:36 08/31/19 24 09/01/2023 CBC WITH DIFFE RENTI AL/PL ATELE T RBC 4.50 x10e6 /uL 3.77-5 .28 Not Available [facility] ([facility]) [address] [facility], [place], [address], 09/01/2023 12:37:36 08/31/19 24 09/01/2023 CBC WITH DIFFE RENTI AL/PL ATELE T hemoglobin 12.9 g/dL 11.1-1 5.9 Not Available [facility] ([facility]) [address] [place], [address], 09/01/2023 12:37:36 08/31/19 24 09/01/2023 CBC WITH DIFFE RENTI AL/PL ATELE T hematocrit 38.9 % 34.0-4 6.6 Not Available [facility] ([facility]) [address] [facility], [place], [address], 09/01/2023 12:37:36 08/31/19 24 09/01/2023 CBC WITH DIFFE RENTI AL/PL ATELE T MCV 86 fL 79-97 Not Available [facility] ([facility]) [address] [facility], [place], [address], 09/01/2023 12:37:36 08/31/19 24 09/01/2023 CBC WITH DIFFE RENTI AL/PL ATELE T MCH 28.7 pg 26.6-3 3.0 Not Available [facility] ([facility]) [address] [place], [address], 09/01/2023 12:37:36 08/31/19 24 09/01/2023 CBC WITH DIFFE RENTI AL/PL ATELE T MCHC 33.2 g/dL 31.5-3 5.7 Not Available [facility] ([facility]) [address] [place], [address], 09/01/2023 12:37:36 08/31/19 24 09/01/2023 CBC WITH DIFFE RENTI AL/PL ATELE T RDW 12.0 % 11.7-1 5.4 Not Available [facility] ([facility]) [address] [place], [address], 09/01/2023 12:37:36 08/31/19 24 09/01/2023 CBC WITH DIFFE RENTI AL/PL ATELE T platelets 251 x10e3 /uL 150-45 0 Not Available [facility] ([facility]) [address] [facility], [place], [address], 09/01/2023 12:37:36 08/31/19 24 09/01/2023 CBC WITH DIFFE RENTI AL/PL ATELE T neutrophils 51 % notest ab. Not Available [facility] ([facility]) [address] [facility], [place], [address], 09/01/2023 12:37:36 08/31/19 24 09/01/2023 CBC WITH DIFFE RENTI AL/PL ATELE T lymphs 37 % notest ab. Not Available [facility] ([facility]) [address] [facility], [place], [address], 09/01/2023 12:37:36 08/31/19 24 09/01/2023 CBC WITH DIFFE RENTI AL/PL ATELE T monocytes 8 % notest ab. Not Available [facility] ([facility]) [address] [facility], [place], [address], 09/01/2023 12:37:36 08/31/19 24 09/01/2023 CBC WITH DIFFE RENTI AL/PL ATELE T eos 2 % notest ab. Not Available [facility] ([facility]) [address] [facility], [place], [address], 09/01/2023 12:37:36 08/31/19 24 09/01/2023 CBC WITH DIFFE RENTI AL/PL ATELE T basos 1 % notest ab. Not Available [facility] ([facility]) [address] [facility], [place], [address], 09/01/2023 12:37:36 08/31/19 24 09/01/2023 CBC WITH DIFFE RENTI AL/PL ATELE T neutrophils (absolute) 2.4 x10e3 /uL 1.4-7. 0 Not Available [facility] ([facility]) [address] [facility], [place], [address], 09/01/2023 12:37:36 08/31/19 24 09/01/2023 CBC WITH DIFFE RENTI AL/PL ATELE T lymphs (absolute) 1.7 x10e3 /uL 0.7-3. 1 Not Available [facility] ([facility]) [address] [facility], [place], [address], 09/01/2023 12:37:36 08/31/19 24 09/01/2023 CBC WITH DIFFE RENTI AL/PL ATELE T monocytes(ab solute) 0.4 x10e3 /uL 0.1-0. 9 Not Available [facility] ([facility]) [address] [facility], [place], [address], 09/01/2023 12:37:36 08/31/19 24 09/01/2023 CBC WITH DIFFE RENTI AL/PL ATELE T eos (absolute) 0.1 x10e3 /uL 0.0-0. 4 Not Available [facility] ([facility]) [address] [facility], [place], [address], 09/01/2023 12:37:36 08/31/19 24 09/01/2023 CBC WITH DIFFE RENTI AL/PL ATELE T baso (absolute) 0.0 x10e3 /uL 0.0-0. 2 Not Available [facility] ([facility]) [address] [facility], [place], [address], 09/01/2023 12:37:36 08/31/19 24 09/01/2023 CBC WITH DIFFE RENTI AL/PL ATELE T immature granulocytes 1 % notest ab. Not Available [facility] ([facility]) [address] [facility], [place], [address], 09/01/2023 12:37:36 08/31/19 24 09/01/2023 CBC WITH DIFFE RENTI AL/PL ATELE T immature grans (abs) 0.0 x10e3 /uL 0.0-0. 1 Not Available [facility] ([facility]) [address] [place], [address], 09/01/2023 12:37:36 09/01/19 25 09/01/2024 LIPID PANEL W/ CHOL/ HDL RATIO cholesterol, total 184 mg/dL 100-19 9 Not Available [facility] ([facility]) [address] [facility], [place], [address], 09/01/2024 07:07:50 09/01/19 25 09/01/2024 LIPID PANEL W/ CHOL/ HDL RATIO triglyceride s 48 mg/dL 0-149 Not Available [facility] ([facility]) [address] [facility], [place], [address], 09/01/2024 07:07:50 09/01/19 25 09/01/2024 LIPID PANEL W/ CHOL/ HDL RATIO HDL cholesterol 79 mg/dL >39 Not Available [facility] ([facility]) [address] [facility], [place], [address], 09/01/2024 07:07:50 09/01/19 25 09/01/2024 LIPID PANEL W/ CHOL/ HDL RATIO VLDL cholesterol minnie 10 mg/dL 5-40 Not Available [facility] ([facility]) [address] [place], [address], 09/01/2024 07:07:50 09/01/19 25 09/01/2024 LIPID PANEL W/ CHOL/ HDL RATIO LDL chol calc ([facility]) 95 mg/dL 0-99 Not Available [facility] ([facility]) [address] [place], [address], 09/01/2024 07:07:50 09/01/19 25 09/01/2024 LIPID PANEL W/ CHOL/ HDL RATIO T. chol/HDL ratio 2.3 ratio 0.0-4. 4 T. Chol/ HDL Ratio Men Women 1/2 Avg.R isk 3.4 3.3 Avg.R isk 5.0 4.4 2X Avg.R isk 9.6 7.1 3X Avg.R isk 23.4 11.0 Not Available [facility] ([facility]) [address] [place], [address], 09/01/2024 07:07:50 09/01/19 25 09/01/2024 TSH+F REE T4 TSH 1.990 uIU/m L 0.450- 4.500 Not Available [facility] ([facility]) [address] [place], [address], 09/01/2024 07:07:51 09/01/19 25 09/01/2024 TSH+F REE T4 T4,free(dire ct) 1.13 NG/dL 0.82-1 .77 Not Available [facility] ([facility]) [address] [place], [address], 09/01/2024 07:07:51 09/01/19 25 09/01/2024 COMP. METAB OLIC PANEL (14) glucose 83 mg/dL 70-99 Not Available [facility] ([facility]) [address] [place], [address], 09/01/2024 07:07:52 09/01/19 25 09/01/2024 COMP. METAB OLIC PANEL (14) BUN 14 mg/dL 6-24 Not Available [facility] ([facility]) [address] [place], [address], 09/01/2024 07:07:52 09/01/19 25 09/01/2024 COMP. METAB OLIC PANEL (14) creatinine 0.69 mg/dL 0.57-1 .00 Not Available [facility] ([facility]) [address] [place], [address], 09/01/2024 07:07:52 09/01/19 25 09/01/2024 COMP. METAB OLIC PANEL (14) eGFR 110 mL/mi n/1.7 3 >59 Not Available [facility] ([facility]) [address] [place], [address], 09/01/2024 07:07:52 09/01/19 25 09/01/2024 COMP. METAB OLIC PANEL (14) BUN/creatini ne ratio 20 9-23 Not Available [facility] ([facility]) [address] [place], [address], 09/01/2024 07:07:52 09/01/19 25 09/01/2024 COMP. METAB OLIC PANEL (14) sodium 137 mmol/ L 134-14 4 Not Available [facility] ([facility]) [address] [facility], [place], [address], 09/01/2024 07:07:52 09/01/19 25 09/01/2024 COMP. METAB OLIC PANEL (14) potassium - mmol/ L Test not perfo rmed. Speci men is hemol yzed. Unabl e to obtai n valid resul ts. Not Available [facility] ([facility]) [address] [place], [address], 09/01/2024 07:07:52 09/01/19 25 09/01/2024 COMP. METAB OLIC PANEL (14) chloride 104 mmol/ L 96-106 Not Available [facility] ([facility]) [address] [place], [address], 09/01/2024 07:07:52 09/01/19 25 09/01/2024 COMP. METAB OLIC PANEL (14) carbon dioxide, total 21 mmol/ L 20-29 Not Available [facility] ([facility]) [address] [place], [address], 09/01/2024 07:07:52 09/01/19 25 09/01/2024 COMP. METAB OLIC PANEL (14) calcium 9.3 mg/dL 8.7-10 .2 Not Available [facility] ([facility]) [address] [facility] [place], [address], 09/01/2024 07:07:52 09/01/19 25 09/01/2024 COMP. METAB OLIC PANEL (14) protein, total 6.2 g/dL 6.0-8. 5 Not Available [facility] ([facility]) [address] [facility] [place], [address], 09/01/2024 07:07:52 09/01/19 25 09/01/2024 COMP. METAB OLIC PANEL (14) albumin 4.1 g/dL 3.9-4. 9 Not Available [facility] ([facility]) [address] [facility] [place], [address], 09/01/2024 07:07:52 09/01/19 25 09/01/2024 COMP. METAB OLIC PANEL (14) globulin, total 2.1 g/dL 1.5-4. 5 Not Available [facility] ([facility]) [address] [facility] [place], [address], 09/01/2024 07:07:52 09/01/19 25 09/01/2024 COMP. METAB OLIC PANEL (14) bilirubin, total 0.4 mg/dL 0.0-1. 2 Not Available [facility] ([facility]) [address] [facility] [place], [address], 09/01/2024 07:07:52 09/01/19 25 09/01/2024 COMP. METAB OLIC PANEL (14) alkaline phosphatase 50 IU/L 44-121 Not Available [facility] ([facility]) [address] [facility] [place], [address], 09/01/2024 07:07:52 09/01/19 25 09/01/2024 COMP. METAB OLIC PANEL (14) AST (SGOT) 31 IU/L 0-40 Not Available [facility] ([facility]) [address] [facility], [place], [address], 09/01/2024 07:07:52 09/01/19 25 09/01/2024 COMP. METAB OLIC PANEL (14) ALT (SGPT) 18 IU/L 0-32 Not Available [facility] ([facility]) [address] [facility], [place], [address], 09/01/2024 07:07:52 09/01/19 25 09/01/2024 VITAM IN B12+F OLATE vitamin B12 657 pg/mL 232-12 45 Not Available [facility] ([facility]) [address] [facility], [place], [address], 09/01/2024 07:07:53 09/01/19 25 09/01/2024 VITAM IN B12+F OLATE folate (folic acid), serum - NG/mL Test not perfo rmed. Speci men is hemol yzed. Unabl e to obtai n valid resul ts. A serum folat e kathia ntrat ion of less than 3.1 ng/mL is consi dered to repre sent clini minnie defic iency . Not Available [facility] ([facility]) [address] [facility], [place], [address], 09/01/2024 07:07:53 09/01/19 25 08/31/2024 HEMOG LOBIN A1C hemoglobin A1C 5.0 % 4.8-5. 6 Predi abete s: 5.7 - 6.4 Diabe nury: >6.4 Glyce sandra contr ol for adult s with diabe nury: <7.0 Not Available [facility] ([facility]) [address] [facility], [place], [address], 09/01/2024 07:07:54 09/01/19 25 08/31/2024 CBC WITH DIFFE RENTI AL/PL ATELE T WBC 4.8 x10e3 /uL 3.4-10 .8 Not Available [facility] ([facility]) [address] [place], [address], 09/01/2024 07:07:55 09/01/19 25 08/31/2024 CBC WITH DIFFE RENTI AL/PL ATELE T RBC 4.49 x10e6 /uL 3.77-5 .28 Not Available [facility] ([facility]) [address] [place], [address], 09/01/2024 07:07:55 09/01/19 25 08/31/2024 CBC WITH DIFFE RENTI AL/PL ATELE T hemoglobin 13.0 g/dL 11.1-1 5.9 Not Available [facility] ([facility]) [address] [place], [address], 09/01/2024 07:07:55 09/01/19 25 08/31/2024 CBC WITH DIFFE RENTI AL/PL ATELE T hematocrit 40.2 % 34.0-4 6.6 Not Available [facility] ([facility]) [address] [place], [address], 09/01/2024 07:07:55 09/01/1908/31/2024 CBC WITH DIFFE RENTI AL/PL ATELE T MCV 90 fL 79-97 Not Available [facility] ([facility]) [address] [place], [address], 09/01/2024 07:07:55 09/01/1908/31/2024 CBC WITH DIFFE RENTI AL/PL ATELE T MCH 29.0 pg 26.6-3 3.0 Not Available [facility] ([facility]) [address] [place], [address], 09/01/2024 07:07:55 09/01/1908/31/2024 CBC WITH DIFFE RENTI AL/PL ATELE T MCHC 32.3 g/dL 31.5-3 5.7 Not Available [facility] ([facility]) [address] [place], [address], 09/01/2024 07:07:55 09/01/19 25 08/31/2024 CBC WITH DIFFE RENTI AL/PL ATELE T RDW 12.2 % 11.7-1 5.4 Not Available [facility] ([facility]) [address] [facility], [place], [address], 09/01/2024 07:07:55 09/01/19 25 08/31/2024 CBC WITH DIFFE RENTI AL/PL ATELE T platelets 232 x10e3 /uL 150-45 0 Not Available [facility] ([facility]) [address] [facility], [place], [address], 09/01/2024 07:07:55 09/01/19 25 08/31/2024 CBC WITH DIFFE RENTI AL/PL ATELE T neutrophils 54 % notest ab. Not Available [facility] ([facility]) [address] [facility], [place], [address], 09/01/2024 07:07:55 09/01/19 25 08/31/2024 CBC WITH DIFFE RENTI AL/PL ATELE T lymphs 34 % notest ab. Not Available [facility] ([facility]) [address] [facility], [place], [address], 09/01/2024 07:07:55 09/01/19 25 08/31/2024 CBC WITH DIFFE RENTI AL/PL ATELE T monocytes 8 % notest ab. Not Available [facility] ([facility]) [address] [facility], [place], [address], 09/01/2024 07:07:55 09/01/19 25 08/31/2024 CBC WITH DIFFE RENTI AL/PL ATELE T eos 3 % notest ab. Not Available [facility] ([facility]) [address] [facility], [place], [address], 09/01/2024 07:07:55 09/01/19 25 08/31/2024 CBC WITH DIFFE RENTI AL/PL ATELE T basos 1 % notest ab. Not Available [facility] ([facility]) [address] [facility], [place], [address], 09/01/2024 07:07:55 09/01/19 25 08/31/2024 CBC WITH DIFFE RENTI AL/PL ATELE T neutrophils (absolute) 2.6 x10e3 /uL 1.4-7. 0 Not Available [facility] ([facility]) [address] [facility], [place], [address], 09/01/2024 07:07:55 09/01/19 25 08/31/2024 CBC WITH DIFFE RENTI AL/PL ATELE T lymphs (absolute) 1.6 x10e3 /uL 0.7-3. 1 Not Available [facility] ([facility]) [address] [place], [address], 09/01/2024 07:07:55 09/01/19 25 08/31/2024 CBC WITH DIFFE RENTI AL/PL ATELE T monocytes(ab solute) 0.4 x10e3 /uL 0.1-0. 9 Not Available [facility] ([facility]) [address] [place], [address], 09/01/2024 07:07:55 09/01/19 25 08/31/2024 CBC WITH DIFFE RENTI AL/PL ATELE T eos (absolute) 0.1 x10e3 /uL 0.0-0. 4 Not Available [facility] ([facility]) [address] [place], [address], 09/01/2024 07:07:55 09/01/19 25 08/31/2024 CBC WITH DIFFE RENTI AL/PL ATELE T baso (absolute) 0.0 x10e3 /uL 0.0-0. 2 Not Available [facility] ([facility]) [address] [place], [address], 09/01/2024 07:07:55 09/01/19 25 08/31/2024 CBC WITH DIFFE RENTI AL/PL ATELE T immature granulocytes 0 % notest ab. Not Available [facility] ([facility]) [address] [facility], [place], [address], 09/01/2024 07:07:55 09/01/19 25 08/31/2024 CBC WITH DIFFE RENTI AL/PL ATELE T immature grans (abs) 0.0 x10e3 /uL 0.0-0. 1 Not Available [facility] ([facility]) [address] [facility], [place], [address], 09/01/2024 07:07:55 10/13/19 24 10/13/2023 MAMMO , scree abbie, digit al, bilat eral No observ ation record ed. [address], [place], [address], 10/18/2023 00:26:44 04/13/19 25 09/15/2022 MAMMO , scree abbie, digit al, bilat eral No observ ation record ed. BARCODE Not Available 2024 17:15:23 04/13/19 25 09/03/2020 colon oscop y scree abbie (PROC ) No observ ation record ed. BARCODE Not Available 2024 17:15:24 09/24/19 25 09/22/2024 XR, knee, 3 view No observ ation record ed. [place] [id number] [facility] [address], [place], [address], 09/23/2024 13:53:15 Result Notes None recorded. Problems Name Problem SNOMED Code Status Onset Date Resolution Date Notes Provider Name and Address Organization Details Recorded Time Dizziness 785566197 Active 024 JO Church Attn: Stacy g,[address] [facility], [place], [address], [facility] - [facility] 4 22:31:48 Overweight in adulthood with body mass index of 25 or more but less than 30 830635159 Active 025 Pascale CELESTE Mcgregor [place], [place] - [place] 5 11:20:52 Overweight 709352936 Active 025 JO Church Attn: Stacy head,[address] [facility], [place], [address], [facility] - [place] 5 16:30:19 Problem Notes None recorded. Procedures Surgical History Date Name Laterality Status Provider Name and Address Organization Details Recorded Time Tonsillectomy completed Pascale Mcgregor [place] - [facility] 08/28/2023 12:34:16 Imaging Results None recorded. Procedure Notes None recorded. Medical Equipment None Reported. Allergies Allergen ID Allergen Name Allergen Category Reaction Reaction Severity Criticality Documentation Date Start Date Code Code System Note Provider Name and Address Organization Details Recorded Time 403362 Bacid medicatio n Not available Not available Not available 08/27/2023 04405 5 RxNorm Pascale CELESTE Mcgregor [place], [facility] 4 11:52:56 440107 trimethop rim medicatio n hives Not available Not available 08/28/2023 14173 RxNorm Pascale CELESTE Mcgregor [place], [facility] 4 12:15:39 143136 sulfameth oxazole medicatio n hives Not available Not available 08/28/2023 68071 RxNorm Pascale CELESTE Mcgregor [place], [facility] 4 12:16:00 Medications Name Sig Start Date Stop Date Status Note LastModified by Organization Details LastModified Time fluconazol e 150 mg tablet TAKE 1 TABLET BY MOUTH DAILY FOR 1 DOSE. MAY REPEAT NEEDED ANOTHER DAY 08/29 completed Not Available Not Available Not Available ciprofloxa mindy 500 mg tablet Take 1 tablet every 12 hours by oral route. 2024 active Not Available Not Available Not Avai lable metronidaz ole 0.75 % topical cream APPLY A THIN LAYER TO THE AFFECTED AREA(S) BY TOPICAL ROUTE 2 TIMES PER DAY IN THE MORNING AND EVENING active Not Available Not Available No t Available tretinoin (emollient ) 0.05 % topical cream APPLY A PEA-SIZED AMOUNT BY TOPICAL ROUTE ONCE DAILY AT BEDTIME 20-30MINU NURY AFTER WASHING FACE active face Not Available Not Available No t Available norethindr one acetate 5 mg tablet 08/29 completed Not Available Not Available Not Available clobetasol 0.05 % topical ointment Apply 1 applicati on by topical route for 30 days. active 2x week Not Available Not Available Not Available fluocinoni de 0.05 % topical solution Apply 0.05 applicati ons by topical route for 15 days. active prn on scalp Not Available Not Available Not Available doxycyclin e hyclate 100 mg tablet TAKE 1 TABLET BY MOUTH TWICE DAILY FOR 7 DAYS 08/29 completed Not Available Not Available Not Available amoxicilli n 875 mg-potassi um clavulanat e 125 mg tablet TAKE 1 TABLET BY MOUTH EVERY 12 HOURS 08/29 completed Not Available Not Available Not Available nitrofuran toin monohydrat e/macrocry stals 100 mg capsule TAKE 1 CAPSULE BY MOUTH TWICE DAILY FOR 5 DAYS 08/29 completed Not Available Not Available Not Available Rain Allergy active otc Not Available Not Available Not Available Vitals Date Recorded Systolic And Diastolic Provider Name and Address Organization Details Last Updated DateTime 08/28/2023 110/80 mm[Hg] JO Church Attn: Accounting,[address] [place], [address], [facility] 08/28/2023 12:53:03 Date Recorded Body height Body mass index (BMI) Body weight Respiratory rate Oxygen saturation Oxygen saturation in Arterial blood by Pulse oximetry Heart rate Systolic And Diastolic Provider Name and Address Organization Details Last Updated DateTime 167.64 cm 25.6 kg/m2 84394.4 7 g 20 /min 99 % 99 % 72 /min 120/82 mm[Hg] Pascale Mcgregor MA [facility] 12:32:25 Date Recorded Systolic And Diastolic Provider Name and Address Organization Details Last Updated DateTime 08/29/2024 120/80 mm[Hg] JO Church Attn: Accounting,[address] [place], [address], [place] - [facility] 08/29/2024 11:38:05 Date Recorded Body height Body mass index (BMI) Body weight Oxygen saturation Oxygen saturation in Arterial blood by Pulse oximetry Heart rate Respiratory rate Systolic And Diastolic Provider Name and Address Organization Details Last Updated DateTime 167.64 cm 25.7 kg/m2 68291.1 9 g 99 % 99 % 60 /min 18 /min 122/80 mm[Hg] Pascale Mcgregor MA [facility] 11:25:08 Social History Question Answer Notes LastModified by Organizat ion Details LastModified Time Tobacco Smoking Status Former Smoker Psacale Mcgregor MA null, [facility] 08/28/2023 12:35:05 Do You Have An Advance Directive? No Information not available 08/29/2024 Are You Blind Or Do You Have Difficulty Seeing? No Glasses Information not available 08/27/2023 What Is Your Level Of Caffeine Consumption? Occasional Tea Information not available 08/27/2023 In The 14 Days Before Symptom Onset, Have You Had Close Contact With A Laboratory-confir med COVID-19 While That Case Was Ill? No Information not available 08/27/2023 In The 14 Days Before Symptom Onset, Have You Had Close Contact With A Person Who Is Under Investigation For COVID-19 While That Person Was Ill? No Information not available 08/27/2023 Have You Been To An Area Known To Be High Risk For COVID-19? No Information not available 08/27/2023 Are You Deaf Or Do You Have Serious Difficulty Hearing? No Information not available 08/27/2023 What Type Of Diet Are You Following? GLUTENFREE Dairy Free Information not available 08/27/2023 Are There Any Guns Present In Your Home? No Information not available 08/27/2023 What Was The Date Of Your Most Recent Tobacco Screening? 08/29/2024 Information not available 08/29/2024 Do You Use Your Seat Belt Or Car Seat Routinely? Yes Information not available 08/27/2023 Do You Have Smoke And Carbon Monoxide Detectors In Your Home? Yes Information not available 08/27/2023 Do You Use Sunscreen Routinely? Yes Information not available 08/27/2023 Has Tobacco Cessation Counseling Been Provided? Yes Information not available 08/27/2023 On What Date Was Tobacco Cessation Counseling Provided? 08/29/2024 Information not available 08/29/2024 Sex: Female Functional Status Question Answer Note LastModified by Organizat ion Details LastModified Time Do you use any illicit or recreational drugs? No Information not available 08/27/2023 Do you or have you ever used any other forms of tobacco or nicotine? No Information not available 08/27/2023 What is your level of alcohol consumption? Occasional Information not available 08/27/2023 Are you currently employed? Yes Information not available 08/29/2024 Are you able to care for yourself? Yes Information n ot available 08/27/2023 What is your exercise level? Occasional walk Information not available 08/27/2023 Mental Status Question Answer Note LastModified by Organization D etails LastModified Time Do you feel stressed (tense, restless, nervous, or anxious, or unable to sleep at night)? CO8269-1 Information not available 08/29/2024 Family History Relationship Description Onset Age of this Age Resolved Age Notes LastModified by Organization Details LastModified Time Mother Malignant tumor of breast [email or web address] Not available 2023 12:34:26 Mother Hypertensive disorder tcarterma Not available 2023 12:34:45 Sister Diabetes mellitus [email or web address] Not available 2023 12:34:33 Sister Disorder of thyroid gland tcarterma Not available 2023 12:34:38 Sister Hypertensive disorder tcarterma Not available 2023 12:34:45 Sister Hypercholest erolemia tcarterma Not available 2023 12:34:50 Medical History Condition Response Coronary Artery Disease N Other N Atrial Fibrillation N High Blood Pressure N Depression N COPD N Blood Clots N Anxiety Disorder N Muscle, Joint, or Bone Problems N Acid Reflux (GERD) N Cancer N Stroke N Headaches N Kidney or Bladder Problems N Skin Problems N Asthma N Allergies Y Hepatitis N High Cholesterol N Liver Disease N Thyroid Problems N GI Problems N Anemia N Heart Attack ([place]) N Diabetes N Seizures/Epilepsy N Heart Failure N Osteoporosis N Gynecological History Statement/Question Response Flow Moderate Date of LMP 08/23/2024 Menses Monthly Y Duration of Flow (days) 3 Current Control Method None LMP Definite Obstetrics History GPAL:G 0 P 0 0 0 0 Immunizations Vaccine Type Date Status Note Provider Nam e and Address Organization Details Recorded Time Influenza, split virus, trivalent, preservative 4 completed Not Available [facility] 08/29/2024 10:48:52 Influenza, split virus, trivalent, preservative 5 completed Not Available [facility] 08/29/2024 10:48:52 Influenza, split virus, trivalent, PF 6 completed Not Available [facility] 08/29/2024 10:48:52 Influenza, split virus, trivalent, PF 7 completed Not Available [facility] 08/29/2024 10:48:52 COVID-19, mRNA, LNP-S, PF, 30 mcg/0.3 mL dose 1 completed Not Available [facility] 08/29/2024 10:48:52 COVID-19, mRNA, LNP-S, PF, 30 mcg/0.3 mL dose 1 completed Not Available [facility] 08/29/2024 10:48:52 Influenza, split virus, quadrivalent, PF 2 completed Not Available [facility] 08/29/2024 10:48:52 Influenza, split virus, trivalent, PF 4 completed Not Available [facility] 08/29/2024 10:48:52 Past Encounters Encounter ID Performer Location Encounter Start Date Encounter Closed Date Diagnosis/Indication Diagnosis SNOMED-CT Code Diagnosis ICD10 Code Diagnosis Note [id number] Delon Acosta MD [facility] e - [facility]ello [address] [place] [address] 08/28/2023 12:08:27 08/28/2023 13:09:25 Adult health examination 025496215 Z00.00 annual wellness completed Cholesterol screening 27 1629885 Z13.220 fasting lipid panel due. Diabetes m ellitus screening 409715738 Z13.1 a1c screening is due Thyroid di sorder screening 895699223 Z13.29 routine thyroid function panel ordered. Long-term drug therapy 021957258 Z79.899 cmp, cbc and b12, folate labs , and ua due. Preventive procedure 169 447203 Z29.9 patient has had a few rounds of abx recently. Rx for diflucan should she develop any vaginitis symptoms. Dizziness 159512633 R42 episodic but infrequent dizzy/off- balance leaning to the left . pt will start some antihistam ine for now the next few weeks and work on drying up mucous production to see if this improves the dizzy/farhat nce issue. We discussed possible MRI brain if her symptoms persist or worsen. pt will keep us updated. [id number] Delon Acosta MD [facility] [place] [address] [place] [address] 08/29/2024 10:47:09 08/29/2024 12:32:05 Overweight in adulthood with body mass index of 25 or more but less than 30 457533482 E66.3 Z68.25 25.7 Overweight 711464369 E66 .3 Adult [facility] th examination 514450788 Z00.00 annual wellness completed Cholesterol screening 27 3121192 Z13.220 fasting lipid panel due. Diabetes m ellitus screening 216550294 Z13.1 a1c screening is due Thyroid di sorder screening 704183291 Z13.29 routine thyroid function panel ordered. Long-term drug therapy 325244681 Z79.899 cmp, cbc and b12, folate labs , and ua due. Health Concerns Section Related Observation LastModified by Organization Detai ls LastModified Time None Recorded Concern Status LastModified by Organization Details LastModified Time None Recorded Advance Directives Directive N: Payers Insurance Date Sequence Insurance Name Policy Number Policy Kline Covered Member ID Kline Member ID Guarantor Name 09/19/2024 1 [employer] [id number] Carmen Zapata [id number] Carmen Zapata Notes Date Note Type Note Provider Name and Address Organization Details Recorded Time 08/28/2023 text/html Pt is having balance issues at times. she reports a hx even as teenager in college that her balance, and leaning to the left side was a symptom she would have. no other neurologic symptoms reported. no headaches, no vision changes, no paresthesias of face or extremities. no falls. she has just noticed lately a few times recently at her kitchen counter, she has leaned to the left notably. She does report some allergy and sinus symptoms that may be contributing. JO Church Attn: Accounting[address] [facility], [place], [address], [facility] 08/28/2023 22:32:06 08/29/2024 text/html Patient is here for annual wellness exam. She is due for all routine labs. No acute complaints. JO Church Attn: Accounting[address] [facility], [place], [address], [facility] 09/18/2024 16:30:42 OBGyn Episode No OBEpisode recorded.
--- OUTSIDE RECORDS SUMMARY | 2024-10-20 07:44 | XMS_ITS | Data Portability ---
Author Organization [facility] [place] Address [address] [place] [address] [place] [address] Care Team Providers Care Mandarin Tutor Name Role Phone RADHIKA COKER Primary Care Provider [phone] Assessment Encounter Date Assessment Date Assessment LastModified by Organization Details LastModified Time 05/24/2024 05/24/2024 Annual gynecological exam performed. Patient will come back in a year unless there are new symptoms. [email or web address] Not available 05/24/2024 17:17:33 Plan of Treatment Reminders Order Date Submit Date Provider Last Modified By Organization Details Last Modified Time Details Appointments None recorded. Lab test, urine 2023 024 llamay [place], [address], [place], [address], 4 10:10:23 test, urine 2023 024 skye [place], [address], [place], [address], 4 14:49:39 Referral None recorded. Procedures None recorded. Surgeries None recorded. Imaging MAMMO, screening, digital, bilateral 2024 025 [email or web address] Not available 5 18:00:14 US, pelvis 2023 024 [email or web address] [place], [address], [place], [address], 4 20:19:08 US, transvagina l 2023 024 [email or web address] [place], [address], [place], [address], 4 20:19:08 US, pelvis, complete 2023 024 HALEIGH [place], [address], [place], [address], 4 05:01:14 Medication Orders clobetasol 0.05 % topical ointment 2024 025 [email or web address] 1 [facility] #[id number], [address] [place] [address], [id number], 5 20:20:54 doxycycline hyclate 100 mg tablet 2023 025 [facility] #[id number], [address] [place] [address], [id number], 5 17:20:05 Patient TargetsNo targets recorded. Patient InstructionsNo instructions recorded. Reason for Referral None Reported. Results Created Date Observation Date Name Description Value Unit Range Abnormal Flag Note LastModifiedBy Organization Detail LastModifiedTime 04/28/19 24 04/28/2023 VAGIN ITIS/ VAGIN OSIS, DNA PROBE rian sp. detection, direct probe Negati ve negati ve Not Available [facility] (Lab) [address] , [place], [address], 04/30/2023 11:53:10 04/28/19 24 04/28/2023 VAGIN ITIS/ VAGIN OSIS, DNA PROBE gardnerella vag. detection, direct probe Negati ve negati ve Not Available [facility] (Lab) [address] [place], [address], 04/30/2023 11:53:10 04/28/19 24 04/28/2023 VAGIN ITIS/ VAGIN OSIS, DNA PROBE trichomonas vag. detection, direct probe Negati ve negati ve Not Available [facility] (Lab) [address], [place], [address], 04/30/2023 11:53:10 04/28/19 24 04/28/2023 IMAGE GUIDE D PAP AND HPV REGAR DLESS image guided Pap, HPV regardless of Pap result SEE RESULT S BELOW CASE REPOR T: Cytol ogy Gynec ologi jairon Repor t Case: [id number] Autho taye head Provi dotty: Rabia Briggs, ELAINE Colle cted: 04/28 1536 Order ing Locat ion: [place] Path[facility] Recei sohail: 04/29 0729 First Scree n: Mily Grewal, CT Speci men: Scree abbie Pap - Image d, Cervi x STATE MENT OF ADEQU ACY: Satis facto ry for evalu ation Trans forma tion zone compo nent prese nt FINAL DIAGN OSIS: Negat yaakov for Intra epith elial Lesio n or Jenae allen (NIL) . Elect rosemary freedman d by Mily Grewal, CT on 024 at 10:20 AM ----- ----- ----- ----- ----- ----- ----- ----- ----- ----- ----- ----- ----- ----- ----- ----- ----- ---- HPV RESUL TS: HPV mRNA E6/E7 : No HPV mRNA Detec jose a NOTE: This high risk HPV mRNA assay detec ts fourt een high- risk HPV types (16, 18, 31, 33, 35, 39, 45, 51, 52, 56, 58, 59, 66, 68) witho ut diffe renti ation . COMME NT: This speci men was revie wed by a Cytot echno logis t and/o r Patho logis t (as indic ated in this repor t) after evalu ation using the Thinp rep Imagi ng Syste m. CLINI JAIRON INFOR MATIO N: Menst rual Statu s: LMP (if appli cable ): Clini jairon Histo ry/Pr eviou s Pap: Type of Neopl bobbi (if appli cable ): Signi fican t Clini jairon Findi ngs: Other Histo ry: Hormo jared (if appli cable ): PAP EDUCA AR L NOTE: The Pap Test is a scree abbie test with an inher ent false negat yaakov rate. Liqui d-bas ed sampl ing may decre ase, but will not elimi chana, false negat yaakov resul ts. A negat yaakov resul t does not precl ude the prese nce and/o r devel opmen t of disea se, since the prese nce of abnor mal cells in the sampl e depen ds on the locat ion of the lesio n and sampl ing techn ique. Kirstin nued regul ar scree abbie is the best metho d of cance r preve ntion . If repor jose a cytol ogic findi ng do not corre late with physi jairon and/o r histo rical findi ngs, furth er inves tigat ion is recom marilia d, as clini angi lynn nted. Not Available [facility] (Lab) [address], [place], [address], 04/30/2023 11:53:11 04/28/19 24 04/28/2023 pregn joel test, urine HCG negati ve Not Available [place] [address], [place], [address], 04/28/2023 14:49:09 05/19/19 24 05/19/2023 BHCG, QUANT ITATI VE B-HCG <0.2 mIU/m L This assay was perfo rmed using [employer] ratio n reage nts and test kits. Value s obtai costa with other assay metho ds or kits canno t be used inter hanson eably . Refer ence Range s: Non-p regna nt, preme nopau alexia women : 0.0-5 .3 mIU/m L Postm enopa usal women : 0.0-7 .0 mIU/m L Shirlene l Pregn joel: Mackenzie perales l Age bHCG Conc. - mIU/m L 3 Weeks 5.8 - 71.7 4 Weeks 9.5 - 750 5 Weeks 217-7 138 6 Weeks 158 - 31,79 5 7 Weeks 3,697 - 162,5 63 8 Weeks 32,06 5 - 149,5 71 9 Weeks 63,80 3 - 151,4 10 10 Weeks 46,50 9 - 186,9 77 12 Weeks 27,83 2 - 210,6 12 14 Weeks 13,95 0 - 62,53 0 15 Weeks 12,03 9 - 70,97 1 16 Weeks 9,040 - 56,45 1 17 Weeks 8,175 - 55,86 8 18 Weeks 8,099 - 58,17 6 Not Available [facility] (Lab) [address], [place], [address], 05/20/2023 02:38:36 05/20/19 24 05/20/2023 SURGI JAIRON PATHO LOGY surgical pathology SEE RESULT S BELOW CASE REPOR T: Surgi jairon Patho logy Repor t Case: [id number] Autho taye head Provi dotty: Rabia Briggs NP Colle cted: 05/20 1719 Order ing Locat ion: [place] Patho [place] Recei sohail: 05/21 0151 Patho logis t: Temo Villagomez MD Speci men: Endom etriu m, EMB FINAL DIAGN OSIS: Endom etriu m, biops y: -Weak ly proli ferat yaakov endom etriu m. -Quan gn endoc ervic al polyp . -No hyper plasi a or malig alejandro seen. Elect rosemary webb by Temo Villagomez MD on 2023 at 2:39 PM ----- ----- ----- ----- ----- ----- ----- ----- ----- ----- ----- ----- ----- ----- ----- ----- ----- ---- CLINI JAIRON INFOR MATWANDY N: n93.9 MICRO SCOPI C DESCR IPTIO N: A micro scopi c exami natio n was perfo rmed. GROSS DESCR IPTIO N: A. Endom etgaye m. The speci men is label ed with the patie nt's name, demog raphi cs and EMB . Recei sohail in forma mirna is a 3.0 x 3.0 x 0.5 [address] gate of mucus and dark red tissu e. The entir e speci men is submi tted in 2 casse ttes. Gross ed by Fatemeh gilliland Not Available [facility] (Lab) [address], [place], [address], 05/21/2023 15:42:40 05/21/19 24 05/21/2023 pregn joel test, urine HCG negati ve Not Available [place] [address], [place], [address], 05/21/2023 10:10:14 08/26/19 24 08/26/2023 CULTU RE: AEROB IC/AN AEROB IC culture: aerobic/anae robic CANCEL LED Reord ered Not Available [facility] (Lab) [address], [place], [address], 08/27/2023 05:55:45 08/26/19 24 08/26/2023 CULTU RE: GENIT AL result report SEE RESULT S BELOW Test: Cultu re: Genit al Speci men Sourc e: Vagin a Speci men Type: Swab Speci men Date: 2023 3:18 PM Resul t Date: 024 4:43 PM Resul t Statu s: Final resul t Resul ting Lab: [facility] [address] [facility] [address] Tel: [phone] CULTU RE ----- ----- ----- --- No Neiss eria gonor rhoea e isola jose a Heavy Growt h Shirlene l Vagin al Renzo STAIN ----- ----- ----- --- Alter ed vagin al renzo , indet ermin ate for bacte rial vagin osis Not Available [facility] (Lab) [address], [place], [address], 08/30/2023 17:46:27 05/24/19 25 05/24/2024 IMAGE GUIDE D PAP AND HPV REGAR DLESS image guided Pap, HPV regardless of Pap result SEE RESULT S BELOW CASE REPOR T: Cytol ogy Gynec ologi jairon Repor t Case: [id number] Autho taye head Provi dotty: Rabia Briggs, ELAINE Del Toro cted: 05/24 1654 Order ing Locat ion: [place] Patho [place] Recei sohail: 05/25 0054 First Adithya n: Amish Weber, CT Speci men: Priscilaolman leiva Pap - Image d, Cervi x STATE MENT OF ADEQU ACY: Satis facto ry for evalu ation Trans forma tion zone compo nent prese nt ----- ----- ----- ----- ----- ----- ----- ----- ----- ----- ----- ----- ----- ----- ----- ----- ----- ---- FINAL DIAGN OSIS: Negat yaakov for Intra epith elial Chantel hussein or Jenae allen (NIL) . Elect rosemary webb by Amish Weber, CT on 2024 at 1125 SEWER AND INSPECTOR ----- ----- ----- ----- ----- ----- ----- ----- ----- ----- ----- ----- ----- ----- ----- ----- ----- ---- HPV RESUL TS: HPV mRNA E6/E7 : No HPV mRNA Detec jose a NOTE: This high risk HPV mRNA assay detec ts fourt een high- risk HPV types (16, 18, 31, 33, 35, 39, 45, 51, 52, 56, 58, 59, 66, 68) witho ut diffe renti ation . COMME NT: This speci men was revie wed by a Cytot echno logis t and/o r Patho logis t (as indic ated in this repor t) after evalu ation using the Thinp rep Imagi ng Syste m. CLINI JAIRON INFOR MATIO N: Menst rual Statu s: LMP (if appli cable ): Clini jairon Histo ry/Pr eviou s Pap: Type of Neopl bobbi (if appli cable ): Signi fican t Clini jairon Findi ngs: Other Histo ry: Hormo jared (if appli cable ): PAP EDUCA AR L NOTE: The Pap Test is a scree abbie test with an inher ent false negat yaakov rate. Liqui d-bas ed sampl ing may decre ase, but will not elimi chana, false negat yaakov resul ts. A negat yaakov resul t does not precl ude the prese nce and/o r devel opmen t of disea se, since the prese nce of abnor mal cells in the sampl e depen ds on the locat ion of the lesio n and sampl ing techn ique. Kirstin nued regul ar scree abbie is the best metho d of cance r preve ntion . If repor jose a cytol ogic findi ng do not corre late with physi jairon and/o r histo rical findi ngs, furth er inves tigat ion is recom marilia d, as clini angi lynn nted. Not Available [facility] (Lab) [address], [place], [address], 05/26/2024 15:44:35 05/07/19 24 05/07/2023 US, pelvi s No observ ation record ed. [facility] [address], [place], [address], 05/07/2023 18:24:17 05/07/19 24 05/07/2023 US, trans vagin al No observ ation record ed. [facility] [address], [place], [address], 05/07/2023 18:24:27 05/07/19 24 05/07/2023 US, pelvi s No observ ation record ed. [facility] [address], [place], [address], 05/11/2023 16:58:44 10/13/19 24 10/13/2023 MAMMO , scree abbie, digit al, bilat eral No observ ation record ed. [facility] [address], [place], [address], 10/15/2023 09:12:51 Result Notes None recorded. Problems Name Problem SNOMED Code Status Onset Date Resolution Date Notes Provider Name and Address Organization Details Recorded Time Orthosta tic hypotens ion 55091979 Completed 201307/17/2020 Orthosta tic hypotens ion;Prac seamus ID: 0001 Clotilde Angela MD [address], [place], [address], [facility] 1 09:32:01 Polyp of corpus uteri 46895855 Completed 201307/17/2020 Polyp Endometr ial Uterus;P ractice ID: 0001 Clotilde Angela MD [address], [place], [address], [facility] 09:32:10 Menstrua tion finding Completed 201307/17/2020 Menometr orrhagia ;Recorde d Elsewher e: No [facility] S ource: EHR [employer] Engineer miguel ángel: N Practi ce ID: 0001 Nicolas lable Time: 02:15:00 PM Clotilde Angela MD [address], [place], [address], [facility] 1 09:31:53 Cyst of ovary 07328696 Completed 201307/17/2020 Other and unspecif ied ovarian cyst;Rec orded Elsewher e: No Locat ion: [facility] S ource: EHR [employer] Plant Engineer miguel ángel: N Alexeyti ce ID: 0001 Nicolas lable Time: 05:00:00 PM Clotilde Angela MD [address], [place], [address], [facility] 09:31:30 Female genital organ symptoms [id number] Completed 201407/17/2020 Ovarian mass;Rec orded Elsewher e: No [facility] S ource: EHR [employer] Engineer miguel ángel: N Alexeyti ce ID: 0001 Nicolas lable Time: 05:00:00 PM Clotilde Angela MD [address], [place], [address], [facility] 09:31:35 Speciali zed medical examinat ion Completed 201407/17/2020 Gynecolo gical Examinat ion;Adryan rded Elsewher e: No [facility]: EHR [employer] Engineer miguel ángel: N Alexeyti ce ID: 0001 Nicolas lable Time: 04:30:00 PM Clotilde Angela MD [address], [place], [address], [facility] 1 09:32:40 Condylom a acuminat um of the anogenit al region [id number] Completed 201407/17/2020 Condylom a acuminat a;Record ed Elsewher e: No [facility]: EHR [employer] Engineer miguel ángel: N Alexeyti ce ID: 0001 Nicolas lable Time: 04:30:00 PM Clotilde Angela MD [address], [place], [address], [facility] 09:31:22 Adult health examinat ion Completed 201407/17/2020 ROUTINE MEDICAL EXAM;Rec orded Elsewher e: No Locat ion: [facility] S ource: EHR [employer] Power Plant Engineer miguel ángel: N Practi ce ID: 0001 Nicolas lable Time: 04:30:00 PM Clotilde Angela MD [address], [place], [address], [facility] 09:31:01 Overweig ht 038845428 Completed 201407/17/2020 Overweig ht;Pract ice ID: 0001 Clotilde Angela MD [address], [place], [address], [facility] 09:32:05 Screenin g for malignan t neoplasm of cervix Completed 201407/17/2020 SCREEN MAL NEOP-CER VIX;Prac seamus ID: 0001 Clotilde Angela MD [address], [place], [address], [facility] 09:32:29 Pregnanc y test negative 522424275 Completed 201407/17/2020 Pregnanc y examinat ion or test, negative result;R ecorded Elsewher e: No Locat ion: [facility] S ource: EHR [employer] Engineer miguel ángel: N Practi ce ID: 0001 Nicolas lable Time: 04:00:00 PM Clotilde Angela MD [address], [place], [address], [facility] 09:32:14 Atypical squamous cells of undeterm ined signific ance on cervical Papanico laou smear 565165272 Completed 201407/17/2020 Papanico laou smear of cervix with atypical squamous cells of undeterm ined signific ance (ASC-US) ;Recorde d Elsewher e: No [facility] ource: EHR [employer] Engineer miguel ángel: N Taryn ce ID: 0001 Nicolas lable Time: 04:00:00 PM Clotilde Angela MD [address], [place], [address], [facility] 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 0 14:26:18 Abnormal cervical Papanico laou smear 576712646 Completed 201407/17/2020 Other abnormal papanico laou smear of cervix and cervical HPV;Adryan rded Elsewher e: No Locat ion: [facility] S ource: EHR [employer] Plant Engineer miguel ángel: Chiki Centeno ce ID: 0001 Nicolas lable Time: 04:15:00 PM Clotilde Angela MD [address], [place], [address], [facility] 1 09:30:57 Low risk human papillom avirus deoxyrib onucleic acid detected in specimen from cervix [id number] 1655195 Completed 201507/17/2020 Cervical low risk HPV DNA test positive ;Recorde d Elsewher e: No Locat ion: [facility] S ource: EHR [employer] Plant Engineer miguel ángel: N Taryn ce ID: 0001 Nicolas lable Time: 05:00:00 PM Clotilde Angela MD [address], [place], [address], [facility] [address] 09:[address] Concept Completed 201507/17/2020 Encntr for general adult medical exam w/o abnormal findings ;Recorde d Elsewher e: No Locat ion: [facility] S ource: EHR [employer] Engineer miguel ángel: N Taryn ce ID: 0001 Nicolas lable Time: 01:30:00 PM Clotilde Angela MD [address], [place], [address], [facility] 1 09:32:33 Body mass index 25-29 - overweig ht 428240347 Completed 201507/17/2020 Body mass index (BMI) 26.0-26. 9, adult;Re corded Elsewher e: No [facility]ce: EHR [employer] Engineer miguel ángel: N Taryn ce ID: 0001 Nicolas lable Time: 01:30:00 PM Clotilde Angela MD [address], [place], [address], [facility] 1 09:31:11 Breast lump 77144246 Completed 201707/17/2020 Unspecif ied lump in unspecif ied breast;R ecorded Elsewher e: No Locat ion: [facility] S ource: EHR [employer] Engineer miguel ángel: Chiki Centeno ce ID: 0001 Nicolas lable Time: 05:15:00 PM Clotilde Angela MD [address], [place], [address], [facility] 1 09:31:16 Mass of left breast [id number] 7798930 Completed 201707/17/2020 Unspecif ied lump in the left breast, unspecif ied quadrant ;Practic e ID: 0001 Clotilde Angela MD [address], [place], [address], [facility] 09:31:[address] Concept Completed 201707/17/2020 Encounte r for general adult medical exam with abnormal finding; Recorded Elsewher e: No [facility] S ource: EHR [employer] Power Plant Engineer miguel ángel: N Taryn ce ID: 0001 Nicolas lable Time: 04:30:00 PM Clotilde Angela MD [address], [place], [address], [facility] 1 09:32:20 Mass of right breast 2101187683 3718705 Completed 201707/17/2020 Lump in the right breast;R ecorded Elsewher e: No Locat ion: [facility] S ource: EHR [employer] Plant Engineer miguel ángel: N Practi ce ID: 0001 Nicolas lable Time: 04:30:00 PM Clotilde Angela MD [address], [place], [address], [facility] 1 09:31:49 Disorder of perineum Completed 201807/17/2020 Anogenit al (venerea l) warts;Re corded Elsewher e: No Locat ion: [facility] S ource: EHR [employer] Engineer miguel ángel: N Practi ce ID: 0001 Nicolas lable Time: 11:15:00 AM Clotilde Angela MD [address], [place], [address], [facility] 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 1 09:31:26 Reproduc tive care manageme nt Completed 201807/17/2020 Encounte r for ot general cnsl and advice on procreat ion;Prac seamus ID: 0001 Clotilde Angela MD [address], [place], [address], [facility] [address] 09:32:[address] Concept Completed 201807/17/2020 Encntr for director funeral exam (general ) (routine ) w/o abn findings ;Recorde d Elsewher e: No [facility] ource: EHR [employer] Plant Engineer miguel ángel: N Practi ce ID: 0001 Nicolas lable Time: 08:30:00 AM Clotilde Angela MD [address], [place], [address], [facility] 1 09:32:36 Primary infertil ity 212042936 Active 2019 Clotilde Angela MD [address], [place], [address], [facility] 0 15:58:53 Family history of malignan t neoplasm of breast in first degree relative 838734527 Active 2020 mom in 60s Clotilde Angela MD [address], [place], [address], [facility] 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 2 18:37:35 Problem Notes None recorded. Procedures Surgical History Date Name Laterality Status Provider Name and Address Organization Details Recorded Time 10/13/19 24 Date of Last Mammogram completed Sunni Pompa [facility] 05/24/2024 17:24:06 05/20/19 24 Endometrial Biopsy completed Rabia Briggs, [facility] [address], [place], [address], [facility] 05/21/2023 10:08:59 09/04/19 21 completed [facility] 08/26/2023 10:19:34 10/22/19 14 Hysteroscopy completed [facility] 04/28/2023 14:26:39 10/22/19 14 excision of uterine polyp completed [facility] 04/28/2023 14:26:54 tonsilectomy/alma noids completed [facility] 08/26/2023 15:34:32 Imaging Results None recorded. Procedure Notes None recorded. Medical Equipment None Reported. Allergies Allergen ID Allergen Name Allergen Category Reaction Reaction Severity Criticality Documentation Date Start Date Code Code System Note Provider Name and Address Organization Details Recorded Time 76174 sulfameth oxazole medicatio n Not available Not available Not available 03/16/2020 54552 RxNorm Comme nt: [facility] C[facility] sativ e Agent : Bactr im; Not Available [facility] 0 14:17:55 47525 trimethop rim medicatio n Not available Not available Not available 03/16/2020 56179 RxNorm Comme nt: [facility]at [facility] Cau sativ e Agent : Bactr im; Not Available [facility] 0 14:17:55 88907 clindamyc in Not available Not available Not available Not available 03/16/2020 2582 RxNorm Comme nt: [facility]at [facility]; Not Available [facility] 0 14:17:55 Medications Name Sig Start Date Stop Date Status Note LastModified by Organization Details LastModified Time Enzyme Digest capsule 07/16 completed Prescrib ed Elsewher e: Yes Loca tion: Tammy thurman [facility] odify By: hong márquezunter DateTime : 09/27/19 14 03:30:00 PM Not Available Not Available Not Available clindamyc in HCl 75 mg capsule take 2 capsule by oral route every 6 hours 09/26 completed Prescrib ed Elsewher e: Yes Loca tion: Tammy thurman [facility] odify By: hong Thurman ncounter DateTime : 09/27/19 14 03:30:00 PM Not Available Not Available Not Available fluconazo le 150 mg tablet TAKE 1 TABLET BY MOUTH DAILY FOR 1 DOSE. MAY REPEAT NEEDED ANOTHER DAY 05/24 completed Not Available Not Available Not Available cod liver oil capsule 11/21 completed Prescrib ed Elsewher e: Yes Loca tion: Tammy olman [facility] odify By: hong Thurman ncounter DateTime : 09/27/19 14 03:30:00 PM Not Available Not Available Not Available prednison e 20 mg tablet TAKE 2 TABLETS BY MOUTH EVERY DAY FOR 5 DAYS 08/25 completed Not Available Not Available Not Available ciproflox acin 500 mg tablet TAKE 1 TABLET BY MOUTH EVERY 12 HOURS 07/25 completed Not Available Not Available Not Available triamcino lone acetonide 0.1 % topical cream 05/24 completed Not Available Not Available Not Available oseltamiv ir 75 mg capsule TAKE 1 CAPSULE BY MOUTH TWICE DAILY FOR 5 DAYS 07/25 completed Not Available Not Available Not Available Aldara 5 % topical cream packet apply by topical route 5 times every week to the affected area(s) 02/04 completed Prescrib ed Elsewher e: No Locat ion: Tammy thurman [facility] odify By: hong márquezunter DateTime : 11/22/19 15 04:30:00 PM Not Available Not Available Not Available cranberry fruit 400 mg capsule 11/21 completed Prescrib ed Elsewher e: Yes Loca tion: Tammy thurman [facility] odify By: hong márquezunttoshia DateTime : 09/27/19 14 03:30:00 PM Not Available Not Available Not Available norgestim ate-ethin yl estradiol 0.18mg/0. 215mg/0.2 5mg-0.035 mg(28)tab let take 1 tablet by oral route every day 02/07 completed Not Available Not Available Not Available norethind ziggy acetate 5 mg tablet Take 1 tablet by mouth 3 times daily (8 hours apart), starting 3 days prior to expected period for 10 days 05/24 completed Not Available Not Available Not Available clobetaso l 0.05 % topical ointment APPLY THIN LAYER TOPICALL Y TO THE AFFECTED AREA 3 TIMES WEEKLY NEEDED active Not Available Not Available No t Available fluocinon marcie 0.05 % topical solution APPLY TO SCALP TWICE DAILY NEEDED active Not Available Not Available No t Available methylpre dnisolone 4 mg tablets in a dose pack FOLLOW PACKAGE DIRECTIO NS 07/22 completed Not Available Not Available Not Available doxycycli ne hyclate 100 mg tablet TAKE 1 TABLET BY MOUTH TWICE DAILY FOR 7 DAYS 05/24 completed Not Available Not Available Not Available amoxicill in 875 mg-potass ium clavulana te 125 mg tablet TAKE 1 TABLET BY MOUTH EVERY 12 HOURS 05/24 completed Not Available Not Available Not Available Vitamins and Minerals tablet Take by oral route. 08/25 completed Not Available Not Available Not Available Bactrim 400 mg-80 mg tablet take 2 tablet by oral route every 12 hours 09/26 completed Prescrib ed Elsewher e: Yes Loca tion: Tammy thurman [facility] odify By: hong pérez DateTime : 09/27/19 14 03:30:00 PM Not Available Not Available Not Available azelaic acid 15 % topical gel APPLY BID TO FACE 02/07 completed Not Available Not Available Not Available Ortho-Cyc steph (28) 0.25 mg-35 mcg tablet TAKE 1 TABLET BY ORAL ROUTE EVERY DAY 02/04 completed Prescrib ed Elsewher e: No Locat ion: Skylarpat olman [facility] odify By: hong márqueztoshia DateTime : 11/22/19 15 04:30:00 PM Not Available Not Available Not Available nitrofura ntoin monohydra te/macroc rystals 100 mg capsule TAKE 1 CAPSULE BY MOUTH TWICE DAILY FOR 5 DAYS 05/24 completed Not Available Not Available Not Available metronida zole 1 % topical gel APPLY TWICE DAILY TO FACE active Not Available Not Available No t Available 07/16 completed Not Available Not Available Not Available Cedar Oil 1,000 mg capsule 07/08 completed Prescrib ed Elsewher e: Yes Loca tion: [facility] odify By: feliciano Thurman ncounter DateTime : 06/18/19 19 11:15:00 AM Not Available Not Available Not Available B Complex 1.7 mg-20 mg-2 mg-1.2 mg/mL sublingua l liquid 11/21 completed Prescrib ed Elsewher e: Yes Loca tion: [facility] odify By: amdarrel Thurman ncounter DateTime : 09/27/19 14 03:30:00 PM Not Available Not Available Not Available Probiotic 10 billion cell capsule 07/08 completed Prescrib ed Elsewher e: Yes Loca tion: [facility] odify By: feliciano Thurman ncounter DateTime : 09/27/19 14 03:30:00 PM Not Available Not Available Not Available ID NOW COVID-19 Test Kit DIRECTED 07/16 completed Not Available Not Available Not Available Vitals Date Recorded Body height Body mass index (BMI) Body weight Systolic And Diastolic Provider Name and Address Organization Details Last Updated DateTime 04/28/2023 165.1 cm 27 kg/m2 70133.96 g 112/76 mm[Hg] Hali Barry [facility] 04/28/2023 14:23:02 Date Recorded Body height Body mass index (BMI) Body weight Systolic And Diastolic Provider Name and Address Organization Details Last Updated DateTime 05/20/2023 165.1 cm 27.1 kg/m2 60819.84 g 120/82 mm[Hg] Elenita Abbasi [facility] 05/20/2023 17:32:18 Date Recorded Body height Body mass index (BMI) Body weight Systolic And Diastolic Provider Name and Address Organization Details Last Updated DateTime 05/24/2024 165.1 cm 27.4 kg/m2 67763.02 g 136/84 mm[Hg] Sunni Pompa [facility] 05/24/2024 17:18:43 Date Recorded Body height Body mass index (BMI) Body weight Systolic And Diastolic Provider Name and Address Organization Details Last Updated DateTime 08/26/2023 165.1 cm 26.3 kg/m2 94471.59 g 126/80 mm[Hg] Marleny Becker [facility] 08/26/2023 15:30:39 Social History Question Answer Notes LastModified by Organizat ion Details LastModified Time Tobacco Smoking Status Never Smoker Clotilde Angela MD [address], [place], [address], [facility] 02/08/2020 16:00:54 Do You Have An Advance Directive? No Information n ot available 04/28/2023 How Many Years Have You Consumed Alcohol? 18 Information not available 04/28/2023 Are You Blind Or Do You Have Difficulty Seeing? No Information n ot available 04/28/2023 What Is Your Level Of Caffeine Consumption? Occasional Information not available 08/26/2023 How Much Tobacco Do You Chew? None Information not available 04/28/2023 In The 14 Days Before Symptom Onset, Have You Had Close Contact With A Laboratory-confirm ed COVID-19 While That Case Was Ill? No Information n ot available 04/28/2023 In The 14 Days Before Symptom Onset, Have You Had Close Contact With A Person Who Is Under Investigation For COVID-19 While That Person Was Ill? No Information not available 04/28/2023 Have You Been To An Area Known To Be High Risk For COVID-19? No Information not available 04/28/2023 Are You Deaf Or Do You Have Serious Difficulty Hearing? No Information not available 04/28/2023 What Type Of Diet Are You Following? SPECIFIC Information n ot available 04/28/2023 What Is The Highest Grade Or Level Of School You Have Completed Or The Highest Degree You Have Received? [id number] Information not available 04/28/2023 Are There Any Guns Present In Your Home? Yes Information not available 04/28/2023 Do You Use Protection During Sex? No Information not available 04/28/2023 Do You Use Your Seat Belt Or Car Seat Routinely? Yes Information not available 04/28/2023 Do You Have Smoke And Carbon Monoxide Detectors In Your Home? No Information not available 04/28/2023 How Much Tobacco Do You Smoke? No Information not available 04/28/2023 Do You Use Sunscreen Routinely? Yes Information not available 04/28/2023 Have You Used IV Drugs? No Information not available 04/28/2023 Sex: Unknown Functional Status Question Answer Note LastModified by Organizat ion Details LastModified Time Do you use any illicit or recreational drugs? No Information not available 04/28/2023 What is your level of alcohol consumption? Occasional Information not available 04/28/2023 Are you able to walk? 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 Occasional Information not available 08/26/2023 Mental Status Question Answer Note LastModified by Organization D etails LastModified Time Do you feel stressed (tense, restless, nervous, or anxious, or unable to sleep at night)? [id number] Information not available 04/28/2023 Family History Relationship Description Onset Age of this Age Resolved Age Notes LastModified by Organization Details LastModified Time Mother Malignant tumor of breast Not available 2023 14:08:23 Mother Heart disease Not available 2023 14:08:23 Maternal Grandmother Malignant tumor of breast Not available 2023 14:08:23 Maternal Grandmother Malignant tumor of colon Not available 2023 14:08:23 Sister Disorder of thyroid gland Not available 2023 14:08:23 Paternal Grandfather Malignant tumor of colon Not available 2023 14:08:23 Medical History Condition Response Allergies (Food, seasonal, environmental ) N Other N Breast Cancer N Drug/Latex Allergies/Reactions N Blood Transfusion N Dermatologic Disorders N Lung Disease N Defects or Inherited Disease N Breast Problem N Gestational Diabetes N Hematologic disorders N Anesthesia Complications N History of STI N Deep Vein Thrombosis N Polycystic ovary syndrome N Anxiety Disorder N Autoimmune disease N Arthritis N Infertility N Polyps Y Acid Reflux (GERD) N History of abnormal pap N Cancer N Stroke N Varicosities N Neurologic/Epilepsy N Endometriosis N High Cholesterol N Headaches N Fibromyalgia N Kidney Disease N Heart Problems N Kidney or Bladder Problems N Thyroid Problems N GI Problems N Eating Disorder N Anemia N Art (IVF or FET) N Psychiatric Illness N Ovarian Cancer N Diabetes N Pulmonary (TB, Asthma) N Hepatitis/Liver Disease N Eczema N Urinary Tract Infection N Abuse/Domestic Violence N Asthma N Trauma/Violence N Depression/ depression N Heart Disease N Pre-Eclampsia N Hypertension N Osteoporosis N Thrombophilias N Gynecological History Statement/Question Response Abnormal Pap N Date of Last Mammogram 10/13/2023 Date of LMP 05/18/2024 On BCP's at Conception? N Was last menstrual period normal Y STIs/STDs N HPV Vaccine N Colposcopy Duration of Flow (days) 3 Current Control Method None Date of Last Colonoscopy Frequency of Cycle (Q days) 21 Sexually Active? Y Menses Monthly Y Date of DEXA bone scan Age of first menstrual cycle 11 Date of Last Pap Smear Sexual Problems? N Desired Control Method None LMP Definite 09/03/2020 N Obstetrics History GPAL:G 1 P 0 0 1 0 Type Value Spontaneous 1 Living 0 Total 1 Past Encounters Encounter ID Performer Location Encounter Start Date Encounter Closed Date Diagnosis/Indication Diagnosis SNOMED-CT Code Diagnosis ICD10 Code Diagnosis Note [id number] Benedicto Swanson MD [place] [address] [address] 01/31/2020 09:24:03 01/31/2020 10:19:11 Threatened miscarriage 09235098 O20.0 Z3A.01 [id number] Clotilde Angela MD [facility] [address],[place] [address] 02/08/2020 12:23:23 02/08/2020 14:07:05 Missed miscarriage 03756919 O02.1 Z3A.01 [id number] Clotilde Angela MD [facility] [address],[place] [address] 02/08/2020 12:30:29 02/08/2020 17:20:59 Infertility study 69982946 Z31.41 Incomplete miscarriage 897880012 O03.4 Female infertility 45447 08 N97.9 Advanced m aternal age 662631142 O09.519 Dizziness 438321887 R42 [id number] Clotilde Angela MD [place] [address],[place] [address] 02/22/2020 09:29:15 02/22/2020 14:39:20 Vitamin D deficiency 02013167 E55.9 Primary infertility 2971 56424 N97.9 [id number] Clotilde Angela MD [place] [address],[place] [address] 07/16/2020 17:54:21 07/19/2020 14:10:37 Gynecologic examination 76240862 Z01.419 Screening mammography 24 398461 Z12.31 Genital li conde sclerosus 837623353 L90.0 Family his tory of malignant neoplasm of breast in first degree relative 445846231 Z80.3 [id number] Clotilde Angela MD [place] [address],[place] [address] 07/22/2021 18:06:04 07/23/2021 15:58:53 Gynecologic examination 09730119 Z01.419 Z11.51 Lichen sclerosus 2875164 01 L90.0 Candidiasis of vulva 108 5006 B37.3 [id number] Clotilde Angela MD [place] [address] [place] [address] 07/25/2022 10:08:20 07/27/2022 21:35:52 Gynecologic examination 97838976 Z01.419 Z11.51 Genital li conde sclerosus 946843900 L90.0 [id number] KIMBERLY Bolton [place] [address],[place] [address] 04/28/2023 13:54:08 04/28/2023 16:45:59 Abnormal uterine bleeding 0161756322 9100 N93.9 The patient and I discussed the various causes of abnormal uterine bleeding, including polyps, fibroids, hyperplasi a, atypia, anovulatio n, etc. We reviewed the typical evaluation with labs, pelvic US and possible endometria l biopsy. Briefly discussed the options available for treatment (depending on the results of evaluation ) such as hormonal treatment (OCPs, progestins ), Mirena, endometria l ablation, and surgery. We spent more than 30 minutes face to face. pap updateddec lined STI screeningp elvic u/s orderedwil l reach out to pt with u/s results and discuss next steps Menstrual spotting 11455 05 N92.5 [id number] Benedicto Swanson MD [place] [address],[place] [address] 05/07/2023 17:19:25 05/07/2023 18:23:48 Abnormal uterine bleeding 3148389636 9100 N93.9 [id number] KIMBERLY Bolton [place] [address] [address] 05/20/2023 17:03:52 05/21/2023 16:15:09 Abnormal uterine bleeding 3435403447 9100 N93.9 UPT (-)decline d STI screenrece nt u/s reviewedEM B discussed, consent reviewed and signedEMB performed (see procedure note)f/u 1 week to review results/di scuss management planprecau tions reviewed [id number] KIMBERLY Bolton [place] [address] [address] 08/26/2023 15:27:39 08/26/2023 16:18:11 Furuncle of vulva 399469777 N76.4 cx sentrx sent for doxycyclin e - r/b/a reviewedwa rm compress to area TID until resolvedvu lvar care guidelines discussed - d/c use of hair removal creamRTC if symptoms persist Patient is to contact office or go to nearest ED/Urgent care if fever >/= 100.1, pain, excessive bleeding, unusual drainage or swelling in area of concern; or experienci ng worsening sx's or new onset of concerning sx's. Understand ing verbalized . All questions answered to patient satisfacti on. Time spent in visit is a total of 22 mins with at least 50% of visit consisting of counseling and review of plan of care. [id number] KIMBERLY Bolton [place] [address] [address] 05/24/2024 17:08:35 05/25/2024 16:44:35 Gynecologic examination 31023890 Z01.419 Z11.51 WWEBC - declinedPa p - done todaySTI screen - declinedMa mmogram - order givenColon cancer screening - n/aRoutine labs - UTD/PCPRTC in 1 yr or sooner if needed Suggested Calcium with Vitamin D daily. Patient advised to get an annual flu shot in the fall and she could obtain at local pharmacy. Also to obtain TDap vaccinatio n if you have not had one in the last 10 years. Recommend yearly mammograms . Encouraged monthly self breast exams. Encourage safe sexual practices, to use condoms and limit partners if not already in a monogamous relationsh ip. Engage in regular exercise. Avoid tobacco and illicit drugs. This lifestyle behavior pattern will lead to less health conditions and longer life span. If BMI greater than 25 dietary consult advised. All questions have been answered. Genital li conde sclerosus 992211899 L90.0 Screening for malignant neoplasm of breast 346619514 Z12.39 Health Concerns Section Related Observation LastModified by Organization Detai ls LastModified Time None Recorded Concern Status LastModified by Organization Details LastModified Time None Recorded Advance Directives Directive N: Payers Insurance Date Sequence Insurance Name Policy Number Policy Kline Covered Member ID Kline Member ID Guarantor Name 05/24/[address] [facility] (PP[facility]) [id number] Carmen Michelle Benny [id number] Carmen Zapata 05/24/2024 1 [facility] (PPO) [id number] 1 Carmen Martinez Benny [id number] Carmen Zapata Notes Date Note Type Note Provider Name and Address Organization Details Recorded Time 4 text/html Beer - Abnormal BleedingReported by Patient 42yo [id number] for evaluation of prolonged spottinghad spotting/IMB almost daily for the month of February. None this month. Previous to this periods have been about every 3 weeks for the past few years.SA with steady male partner, withdrawal for BC but also has a h/o infertilityh/o endometrial polyp in 2013 requiring hysteroscopy D&Cno h/o abnormal papslast pap 06/2020 - nilm, HPV (-)slight vaginal odor at times (mostly after her periods)neg abnormal d/ch/o lichens sclerosus, uses clobetasol KIMBERLY King [address], [place], [address], [facility] 04/28/2023 16:43:19 4 text/html 42yopresents for EMBhas been abstaining from IC x 2 weeks - bhcg done 05/19/23 negative HPI:42yo [id number] for evaluation of prolonged spottinghad spotting/IMB almost daily for the month of February. None this month. Previous to this periods have been about every 3 weeks for the past few years.SA with steady male partner, withdrawal for BC but also has a h/o infertilityh/o endometrial polyp in 2013 requiring hysteroscopy D&Cno h/o abnormal papslast pap 06/2020 - nilm, HPV (-). 04/28/23 pap - normalslight vaginal odor at times (mostly after her periods)neg abnormal d/ch/o lichens sclerosus, uses clobetasol [address], [place], [address], [facility] 05/21/2023 10:10:43 4 text/html 42yopresents for evaluation of vulvar bumpsnoticed over the weekend after using a hair removal cream3 small, pimple like bumps on the labiaslightly tender at timesno drainageSA with steady male partner, no new partnersLMP 08/22/2023 neg n/v/fneg flu-like symptomsneg discharge/itching/odors has lichens sclerosus, uses clobetasol PRN with flares KIMBERLY Bolton [address], [place], [address], [facility] 08/26/2023 15:58:22 5 text/html Annual GYNReported by PatientGenitourinary symptomsFor menstrual cycle, patient reportsnormal menses. For urinary symptoms, patient reportsno hematuriaandno incontinence. For vulva, patient reportsno genital lesion. For vagina, patient reportsnormal vaginal discharge.Breast symptomsFor breast, patient reportsno breast pain,no breast lump, andno nipple discharge.ContraceptionFo r current contraception, patient reportsbirth control not practiced.Endocrine symptomsFor sexual complaints, patient reportsno sexual complaints,no pain during intercourse, andnormal libido. For menopausal symptoms, patient reportsno menopausal symptomsandnormal vaginal lubrication.Psychological symptomsFor psychological symptoms, patient reportsno depression,no anxiety, andno pmdd.Preventative measuresFor preventive measures, patient reportsencourage self breast examination,encourage regular exercise,encourage no tobacco use, andencourage regular mammograms starting age 40.43yo wwelast pap 03/2023 : nilm, HPV (-)uses clobetasol PRN for lichens scelrosus KIMBERLY Bolton [address], [place], [address], [facility] 05/25/2024 16:24:06 OBGyn Episode Ob Episode Information Episode Created Date Number of Fetuses Patient Bloodtype Patient rh Status Prepregnancy Weight lbs Domestic Partner Domestic Partner Phone Father Name Attenuator Status 02/08/20 20 1 CLOSED Fetus Data First Name Last Name Admitted to NICU Weight (g) Sex Living Outcome Pediatric Complications Fetus ID Race Codes Race Delivery Type , Spontane ous [id number] Sarath Calculation Initial Sarath Date Initial Exam Date Initial Exam Provider Initial Ultrasound Date Last Menstrual Period Date Ultra Sound Weeks Gestation 0 Eighteen To Twenty Week Sarath Update Ultra Sound Date Fundal Height At Umbil Quickening Date Ultra Sound Latest Weeks Gestation Final Sarath Confirmed By Final Sarath Confirmed Date Final Sarath Date Ultra Sound Latest Days Gestation 0 0 Menstrual History Last Menstrual Date Menses Monthly On Bcp Conception Prior Menses Frequency Hcg Plus Date Menarche Onset Age Delivery Information Delivery Date Delivery Type Labor Anesthesia Weeks Gestation Incision Type Labor Labor Length Hrs Delivered By Post Complications Tubal Sterilization Discharge Date Comments 0 sab Discharge Information Feeding Method Contraceptive Method Maternal HG B and HCT Levels
--- OUTSIDE RECORDS SUMMARY | 2024-10-20 07:45 | XMS_ITS | Data Portability ---
Author Organization [employer], Main Office Address [address] [place] [address] Assessment Encounter Date Assessment Date Assessment LastModified by Organization Details LastModified Time 09/08/2022 09/08/2022 Mammogram via gyne. august 2021. colonoscopy 2020. normal repeat 10 years [email or web address] Not available 09/08/2022 10:41:09 Plan of Treatment Reminders Order Date Submit Date Provider Last Modified By Organization Details Last Modified Time Details Appointments None recorded. Lab TSH + free T4, serum 2022 023 [place] [facility], [address], [place], [address], 08:57:29 lipid panel, serum 2022 023 [email or web address] [facility], [address], [place], [address], 3 10:58:43 HbA1c (hemoglobi n A1c), blood 2022 023 [email or web address] [facility], [address], [place], [address], 3 10:58:35 CMP, serum or plasma 2022 023 [email or web address] [facility], [address], [place], [address], 3 10:58:18 CBC w/ auto diff 2022 023 [email or web address] [facility], [address], [place], [address], 3 10:58:26 Referral None recorded. Procedures None recorded. Surgeries None recorded. Imaging MAMMO, screening, bilateral 2022 023 [facility] (Mammography) , [address], [place], [address], 3 08:26:36 Medication Orders None recorded. Patient TargetsNo targets recorded. Patient InstructionsNo instructions recorded. Reason for Referral None Reported. Results Created Date Observation Date Name Description Value Unit Range Abnormal Flag Note LastModifiedBy Organization Detail LastModifiedTime 06/16/1906/16/2020 HbA1c (hemo globi n A1c), blood hemoglobin A1C 5.0 % 4.8-5. 6 Predi abete s: 5.7 - 6.4 Diabe jemima: >6.4 Glyce sandra contr ol for adult s with diabe jemima: <7.0 Not Available [facility] ([facility]) [address], [place], [address], 06/17/2020 07:07:46 06/16/1906/16/2020 lipid panel , serum HDL cholesterol 77 mg/dL >39 Not Available [facility]) [address], [place], [address], 06/17/2020 07:07:46 06/16/19 21 06/16/2020 lipid panel , serum cholesterol, total 181 mg/dL 100-19 9 Not Available [facility] ([facility]) [address] [place], [address], 06/17/2020 07:07:46 06/16/1906/16/2020 lipid panel , serum triglyceride s 46 mg/dL 0-149 Not Available [facility] ([facility]) [address] [place], [address], 06/17/2020 07:07:46 06/16/19 21 06/16/2020 lipid panel , serum VLDL cholesterol minnie 9 mg/dL 5-40 Not Available [facility] ([facility]) [address] [place], [address], 06/17/2020 07:07:46 06/16/19 21 06/16/2020 lipid panel , serum LDL chol calc ([facility]) 95 mg/dL 0-99 Not Available [facility] ([facility]) [address] [place], [address], 06/17/2020 07:07:46 06/16/19 21 06/16/2020 lipid panel , serum comment: spinner tender Not Available [facility] ([facility]) [address] [place], [address], 06/17/2020 07:07:46 06/16/19 21 06/16/2020 lipid panel , serum T. chol/HDL ratio 2.4 ratio 0.0-4. 4 T. Chol/ HDL Ratio Men Women 1/2 Avg.R isk 3.4 3.3 Avg.R isk 5.0 4.4 2X Avg.R isk 9.6 7.1 3X Avg.R isk 23.4 11.0 Not Available [facility] ([facility]) [address] [place], [address], 06/17/2020 07:07:46 06/16/19 21 06/16/2020 CMP, serum or plasm a glucose 89 mg/dL 65-99 Not Available [facility] ([facility]) [address] [place], [address], 06/17/2020 07:07:46 06/16/19 21 06/16/2020 CMP, serum or plasm a BUN 12 mg/dL 6-20 Not Available [facility] ([facility]) [address] [place], [address], 06/17/2020 07:07:46 06/16/19 21 06/16/2020 CMP, serum or plasm a creatinine 0.71 mg/dL 0.57-1 .00 Not Available [facility] ([facility]) [address] [place], [address], 06/17/2020 07:07:46 06/16/19 21 06/16/2020 CMP, serum or plasm a eGFR if nonafricn AM 108 mL/mi n/1.7 3 >59 Not Available [facility] ([facility]) [address] [place], [address], 06/17/2020 07:07:46 06/16/19 21 06/16/2020 CMP, serum or plasm a eGFR if africn AM 124 mL/mi n/1.7 3 >59 Not Available [facility] ([facility]) [address] [place], [address], 06/17/2020 07:07:46 06/16/19 21 06/16/2020 CMP, serum or plasm a BUN/creatini ne ratio 17 9-23 Not Available [facility] ([facility]) [address] [place], [address], 06/17/2020 07:07:46 06/16/19 21 06/16/2020 CMP, serum or plasm a sodium 140 mmol/ L 134-14 4 Not Available [facility] ([facility]) [address] [place], [address], 06/17/2020 07:07:46 06/16/19 21 06/16/2020 CMP, serum or plasm a potassium 4.5 mmol/ L 3.5-5. 2 Not Available [facility] ([facility]) [address] [place], [address], 06/17/2020 07:07:46 06/16/19 21 06/16/2020 CMP, serum or plasm a chloride 101 mmol/ L 96-106 Not Available [facility] ([facility]) [address] [place], [address], 06/17/2020 07:07:46 06/16/19 21 06/16/2020 CMP, serum or plasm a carbon dioxide, total 24 mmol/ L 20-29 Not Available [facility] ([facility]) [address] [place], [address], 06/17/2020 07:07:46 06/16/1906/16/2020 CMP, serum or plasm a calcium 9.5 mg/dL 8.7-10 .2 Not Available [facility] ([facility]) [address] [place], [address], 06/17/2020 07:07:46 06/16/1906/16/2020 CMP, serum or plasm a protein, total 6.9 g/dL 6.0-8. 5 Not Available [facility] ([facility]) [address] [place], [address], 06/17/2020 07:07:46 06/16/1906/16/2020 CMP, serum or plasm a albumin 4.5 g/dL 3.8-4. 8 Not Available [facility] ([facility]) [address] [place], [address], 06/17/2020 07:07:46 06/16/19 21 06/16/2020 CMP, serum or plasm a globulin, total 2.4 g/dL 1.5-4. 5 Not Available [facility] ([facility]) [address] [place], [address], 06/17/2020 07:07:46 06/16/19 21 06/16/2020 CMP, serum or plasm a A/G ratio 1.9 1.2-2. 2 Not Available [facility] ([facility]) [address] [place], [address], 06/17/2020 07:07:46 06/16/19 21 06/16/2020 CMP, serum or plasm a bilirubin, total 0.5 mg/dL 0.0-1. 2 Not Available [facility] ([facility]) [address] [place], [address], 06/17/2020 07:07:46 06/16/19 21 06/16/2020 CMP, serum or plasm a alkaline phosphatase 55 IU/L 39-117 Not Available [facility] ([facility]) [address] [place], [address], 06/17/2020 07:07:46 06/16/19 21 06/16/2020 CMP, serum or plasm a AST (SGOT) 19 IU/L 0-40 Not Available [facility] ([facility]) [address] [place], [address], 06/17/2020 07:07:46 06/16/19 21 06/16/2020 CMP, serum or plasm a ALT (SGPT) 17 IU/L 0-32 Not Available [facility] ([facility]) [address] [place], [address], 06/17/2020 07:07:46 06/16/19 21 06/16/2020 CBC w/ auto diff RBC 4.54 x10e6 /uL 3.77-5 .28 Not Available [facility] ([facility]) [address] [place], [address], 06/17/2020 07:07:45 06/16/19 21 06/16/2020 CBC w/ auto diff WBC 4.8 x10e3 /uL 3.4-10 .8 Not Available [facility] ([facility]) [address] [place], [address], 06/17/2020 07:07:45 06/16/19 21 06/16/2020 CBC w/ auto diff hemoglobin 13.6 g/dL 11.1-1 5.9 Not Available [facility] ([facility]) [address] [place], [address], 06/17/2020 07:07:45 06/16/19 21 06/16/2020 CBC w/ auto diff hematocrit 39.2 % 34.0-4 6.6 Not Available [facility] ([facility]) [address] [place], [address], 06/17/2020 07:07:45 06/16/19 21 06/16/2020 CBC w/ auto diff MCV 86 fL 79-97 Not Available [facility] ([facility]) [address], [place], [address], 06/17/2020 07:07:45 06/16/19 21 06/16/2020 CBC w/ auto diff MCH 30.0 pg 26.6-3 3.0 Not Available [facility] ([facility]) [address], [place], [address], 06/17/2020 07:07:45 06/16/19 21 06/16/2020 CBC w/ auto diff MCHC 34.7 g/dL 31.5-3 5.7 Not Available [facility] ([facility]) [address] [place], [address], 06/17/2020 07:07:45 06/16/19 21 06/16/2020 CBC w/ auto diff RDW 11.8 % 11.7-1 5.4 Not Available [facility] ([facility]) [address] [place], [address], 06/17/2020 07:07:45 06/16/19 21 06/16/2020 CBC w/ auto diff platelets 214 x10e3 /uL 150-45 0 Not Available [facility] ([facility]) [address] [place], [address], 06/17/2020 07:07:45 06/16/19 21 06/16/2020 CBC w/ auto diff neutrophils 54 % not estab. Not Available [facility] ([facility]) [address], [place], [address], 06/17/2020 07:07:45 06/16/19 21 06/16/2020 CBC w/ auto diff lymphs 34 % not estab. Not Available [facility] ([facility]) [address], [place], [address], 06/17/2020 07:07:45 06/16/1906/16/2020 CBC w/ auto diff monocytes 9 % not estab. Not Available [facility] ([facility]) [address], [place], [address], 06/17/2020 07:07:45 06/16/19 21 06/16/2020 CBC w/ auto diff eos 2 % not estab. Not Available [facility] ([facility]) [address], [place], [address], 06/17/2020 07:07:45 06/16/1906/16/2020 CBC w/ auto diff basos 1 % not estab. Not Available [facility] ([facility]) [address], [place], [address], 06/17/2020 07:07:45 06/16/1906/16/2020 CBC w/ auto diff immature cells spinner tender Not Available [facility] ([facility]) [address], [place], [address], 06/17/2020 07:07:45 06/16/1906/16/2020 CBC w/ auto diff neutrophils (absolute) 2.6 x10e3 /uL 1.4-7. 0 Not Available [facility] ([facility]) [address], [place], [address], 06/17/2020 07:07:45 06/16/19 21 06/16/2020 CBC w/ auto diff lymphs (absolute) 1.6 x10e3 /uL 0.7-3. 1 Not Available [facility] ([facility]) [address] [place], [address], 06/17/2020 07:07:45 06/16/19 21 06/16/2020 CBC w/ auto diff monocytes(ab solute) 0.4 x10e3 /uL 0.1-0. 9 Not Available [facility] ([facility]) [address] [place], [address], 06/17/2020 07:07:45 06/16/19 21 06/16/2020 CBC w/ auto diff eos (absolute) 0.1 x10e3 /uL 0.0-0. 4 Not Available [facility] ([facility]) [address], [place], [address], 06/17/2020 07:07:45 06/16/19 21 06/16/2020 CBC w/ auto diff baso (absolute) 0.1 x10e3 /uL 0.0-0. 2 Not Available [facility] ([facility]) [address] [place], [address], 06/17/2020 07:07:45 06/16/19 21 06/16/2020 CBC w/ auto diff immature granulocytes 0 % not estab. Not Available [facility] ([facility]) [address] [place], [address], 06/17/2020 07:07:45 06/16/19 21 06/16/2020 CBC w/ auto diff immature grans (abs) 0.0 x10e3 /uL 0.0-0. 1 Not Available [facility] ([facility]) [address] [place], [address], 06/17/2020 07:07:45 03/1906/16/2020 CBC w/ auto diff NRBC spinner tender Not Available [facility] ([facility]) [address] [place], [address], 06/17/2020 07:07:45 06/16/19 21 06/16/2020 CBC w/ auto diff hematology comments: spinner tender Not Available [facility] ([facility]) [address], [place], [address], 06/17/2020 07:07:45 06/16/1906/16/2020 TSH + free T4, serum TSH 2.310 uIU/m L 0.450- 4.500 Not Available [facility] ([facility]) [address] [place], [address], 06/17/2020 07:07:45 06/16/1906/16/2020 TSH + free T4, serum T4,free(dire ct) 1.13 NG/dL 0.82-1 .77 Not Available [facility] ([facility]) [address] [place], [address], 06/17/2020 07:07:45 06/16/1906/16/2020 urina lysis , dipst ick, refle x micro appearance turbid clear abnormal Not Available [facility] ([facility]) [address] [place], [address], 06/17/2020 07:07:44 06/16/1906/16/2020 urina lysis , dipst ick, refle x micro specific gravity 1.021 1.005- 1.030 Not Available [facility] ([facility]) [address] [place], [address], 06/17/2020 07:07:44 06/16/1906/16/2020 urina lysis , dipst ick, refle x micro pH 7.0 5.0-7. 5 Not Available [facility] ([facility]) [address] [facility] [place], [address], 06/17/2020 07:07:44 06/16/1906/16/2020 urina lysis , dipst ick, refle x micro urine-color yellow yellow Not Available [facility] ([facility]) [address], [place], [address], 06/17/2020 07:07:44 06/16/1906/16/2020 urina lysis , dipst ick, refle x micro WBC esterase negati ve negati ve Not Available [facility] ([facility]) [address], [place], [address], 06/17/2020 07:07:44 06/16/1906/16/2020 urina lysis , dipst ick, refle x micro protein 1+ negati ve/tra ce abnormal Not Available [facility] ([facility]) [address] [place], [address], 06/17/2020 07:07:44 06/16/1906/16/2020 urina lysis , dipst ick, refle x micro glucose negati ve negati ve Not Available [facility] ([facility]) [address] [place], [address], 06/17/2020 07:07:44 06/16/1906/16/2020 urina lysis , dipst ick, refle x micro ketones negati ve negati ve Not Available [facility] ([facility]) [address] [place], [address], 06/17/2020 07:07:44 06/16/1906/16/2020 urina lysis , dipst ick, refle x micro occult blood 3+ negati ve abnormal Not Available [facility] ([facility]) [address] [place], [address], 06/17/2020 07:07:44 06/16/1906/16/2020 urina lysis , dipst ick, refle x micro bilirubin negati ve negati ve Not Available [facility] ([facility]) [address] [place], [address], 06/17/2020 07:07:44 06/16/1906/16/2020 urina lysis , dipst ick, refle x micro urobilinogen ,semi-qn 1.0 mg/dL 0.2-1. 0 Not Available [facility] ([facility]) [address] [place], [address], 06/17/2020 07:07:44 06/16/1906/16/2020 urina lysis , dipst ick, refle x micro nitrite, urine negati ve negati ve Not Available [facility] ([facility]) [address] [place], [address], 06/17/2020 07:07:44 06/16/1906/16/2020 urina lysis , dipst ick, refle x micro microscopic examination see below: Micro scopi c was indic ated and was perfo rmed. Not Available [facility] ([facility]) [address] [place], [address], 06/17/2020 07:07:44 06/16/1906/16/2020 urina lysis , dipst ick, refle x micro WBC 6-10 /hpf 0 - 5 abnormal Not Available [facility] ([facility]) [address] [place], [address], 06/17/2020 07:07:44 06/16/1906/16/2020 urina lysis , dipst ick, refle x micro RBC 3-10 /hpf 0 - 2 abnormal Not Available [facility] ([facility]) [address] [place], [address], 06/17/2020 07:07:44 06/16/19 21 06/16/2020 urina lysis , dipst ick, refle x micro epithelial cells (non renal) >10 /hpf 0 - 10 abnormal Not Available [facility] ([facility]) [address], [place], [address], 06/17/2020 07:07:44 06/16/19 21 06/16/2020 urina lysis , dipst ick, refle x micro epithelial cells (renal) spinner tender Not Available [facility] ([facility]) [address], [place], [address], 06/17/2020 07:07:44 06/16/19 21 06/16/2020 urina lysis , dipst ick, refle x micro casts spinner tender Not Available [facility] ([facility]) [address] [place], [address], 06/17/2020 07:07:44 06/16/19 21 06/16/2020 urina lysis , dipst ick, refle x micro cast type spinner tender Not Available [facility] ([facility]) [address] [place], [address], 06/17/2020 07:07:44 06/16/19 21 06/16/2020 urina lysis , dipst ick, refle x micro crystals spinner tender Not Available [facility] ([facility]) [address] [place], [address], 06/17/2020 07:07:44 06/16/19 21 06/16/2020 urina lysis , dipst ick, refle x micro crystal type spinner tender Not Available [facility] ([facility]) [address] [place], [address], 06/17/2020 07:07:44 06/16/19 21 06/16/2020 urina lysis , dipst ick, refle x micro mucus threads presen t not estab. Not Available [facility] ([facility]) [address], [place], [address], 06/17/2020 07:07:44 06/16/19 21 06/16/2020 urina lysis , dipst ick, refle x micro bacteria few none seen/f ew Not Available [facility] ([facility]) [address], [place], [address], 06/17/2020 07:07:44 06/16/19 21 06/16/2020 urina lysis , dipst ick, refle x micro yeast spinner tender Not Available [facility] ([facility]) [address], [place], [address], 06/17/2020 07:07:44 06/16/19 21 06/16/2020 urina lysis , dipst ick, refle x micro trichomonas spinner tender Not Available [facility] ([facility]) [address], [place], [address], 06/17/2020 07:07:44 06/16/19 21 06/16/2020 urina lysis , dipst ick, refle x micro comment spinner tender Not Available [facility] ([facility]) [address], [place], [address], 06/17/2020 07:07:44 06/16/19 21 06/17/2020 urina lysis , dipst ick, refle x micro creatinine, urine 212.4 mg/dL not estab. Not Available [facility] ([facility]) [address], [place], [address], 06/17/2020 07:07:44 06/16/19 21 06/17/2020 urina lysis , dipst ick, refle x micro protein,tota l,urine 21.1 mg/dL not estab. Not Available [facility] ([facility]) [address], [place], [address], 06/17/2020 07:07:44 06/16/19 21 06/17/2020 urina lysis , dipst ick, refle x micro protein/crea t ratio 99 mg/g_ creat 0-200 Not Available [facility] ([facility]) [address], [place], [address], 06/17/2020 07:07:44 08/30/19 21 08/31/2020 cultu re, urine urine culture, routine final report abnormal Not Available [facility] ([facility]) [address], [place], [address], 08/31/2020 03:07:45 08/30/19 21 08/31/2020 cultu re, urine result 1 commen t abnormal Beta hemol ytic Strep tococ cus, group B 10,00 0-25, 000 colon y formi ng units per mL Penic illin and ampic illin are drugs of choic e for treat ment of beta- hemol ytic strep tococ minnie infec tions . Susce ptibi lity testi ng of penic illin s and other beta- lacta m agent s appro sohail by the FDA for treat ment of beta- hemol ytic strep tococ minnie infec tions need not be perfo rmed lambertoi bridget becau se nonsu scept ible isola jemima are extre juan josé rare in any beta- hemol ytic strep tococ cus and have not been repor jose a for Strep tococ cus pyoge jared (grou p A). (CLSI ) Not Available [facility] ([facility]) [address], [place], [address], 08/31/2020 03:07:45 08/30/19 21 08/31/2020 cultu re, urine result 2 commen t Mixed uroge nital renzo Less than 10,00 0 colon ies/m L Not Available [facility] ([facility]) [address], [place], [address], 08/31/2020 03:07:45 08/30/1908/30/2020 urina lysis , compl ete specific gravity 1.022 1.005- 1.030 Not Available [facility] ([facility]) [address] [place], [address], 08/31/2020 03:07:44 08/30/19 21 08/30/2020 urina lysis , compl ete pH 7.0 5.0-7. 5 Not Available [facility] ([facility]) [address] [place], [address], 08/31/2020 03:07:44 08/30/1908/30/2020 urina lysis , compl ete urine-color yellow yellow Not Available [facility] ([facility]) [address] [place], [address], 08/31/2020 03:07:44 08/30/1908/30/2020 urina lysis , compl ete appearance clear clear Not Available [facility] ([facility]) [address] [place], [address], 08/31/2020 03:07:44 08/30/1908/30/2020 urina lysis , compl ete WBC esterase negati ve negati ve Not Available [facility] ([facility]) [address] [place], [address], 08/31/2020 03:07:44 08/30/1908/30/2020 urina lysis , compl ete protein negati ve negati ve/tra ce Not Available [facility] ([facility]) [address] [place], [address], 08/31/2020 03:07:44 08/30/1908/30/2020 urina lysis , compl ete glucose negati ve negati ve Not Available [facility] ([facility]) [address] [place], [address], 08/31/2020 03:07:44 08/30/19 21 08/30/2020 urina lysis , compl ete ketones negati ve negati ve Not Available [facility] ([facility]) [address] [place], [address], 08/31/2020 03:07:44 08/30/19 21 08/30/2020 urina lysis , compl ete occult blood negati ve negati ve Not Available [facility] ([facility]) [address] [place], [address], 08/31/2020 03:07:44 08/30/19 21 08/30/2020 urina lysis , compl ete bilirubin negati ve negati ve Not Available [facility] ([facility]) [address] [place], [address], 08/31/2020 03:07:44 08/30/19 21 08/30/2020 urina lysis , compl ete urobilinogen ,semi-qn 0.2 mg/dL 0.2-1. 0 Not Available [facility] ([facility]) [address] [place], [address], 08/31/2020 03:07:44 08/30/19 21 08/30/2020 urina lysis , compl ete nitrite, urine negati ve negati ve Not Available [facility] ([facility]) [address] [place], [address], 08/31/2020 03:07:44 08/30/19 21 08/30/2020 urina lysis , compl ete microscopic examination commen t Micro scopi c follo ws if indic ated. Not Available [facility] ([facility]) [address] [place], [address], 08/31/2020 03:07:44 08/30/19 21 08/30/2020 urina lysis , compl ete microscopic examination see below: Micro scopi c was indic ated and was perfo rmed. Not Available [facility] ([facility]) [address], [place], [address], 08/31/2020 03:07:44 08/30/19 21 08/30/2020 urina lysis , compl ete WBC none seen /hpf 0 - 5 Not Available [facility] ([facility]) [address], [place], [address], 08/31/2020 03:07:44 08/30/19 21 08/30/2020 urina lysis , compl ete RBC 0-2 /hpf 0 - 2 Not Available [facility] ([facility]) [address], [place], [address], 08/31/2020 03:07:44 08/30/19 21 08/30/2020 urina lysis , compl ete epithelial cells (non renal) 0-10 /hpf 0 - 10 Not Available [facility] ([facility]) [address], [place], [address], 08/31/2020 03:07:44 08/30/19 21 08/30/2020 urina lysis , compl ete epithelial cells (renal) spinner tender Not Available [facility] ([facility]) [address], [place], [address], 08/31/2020 03:07:44 08/30/19 21 08/30/2020 urina lysis , compl ete casts none seen /lpf none seen Not Available [facility] ([facility]) [address], [place], [address], 08/31/2020 03:07:44 08/30/19 21 08/30/2020 urina lysis , compl ete cast type spinner tender Not Available [facility] ([facility]) [address], [place], [address], 08/31/2020 03:07:44 08/30/19 21 08/30/2020 urina lysis , compl ete crystals spinner tender Not Available [facility] ([facility]) [address] [place], [address], 08/31/2020 03:07:44 08/30/19 21 08/30/2020 urina lysis , compl ete crystal type spinner tender Not Available [facility] ([facility]) [address] [place], [address], 08/31/2020 03:07:44 08/30/19 21 08/30/2020 urina lysis , compl ete mucus threads spinner tender Not Available [facility] ([facility]) [address] [place], [address], 08/31/2020 03:07:44 08/30/19 21 08/30/2020 urina lysis , compl ete bacteria few none seen/f ew Not Available [facility] ([facility]) [address] [place], [address], 08/31/2020 03:07:44 08/30/19 21 08/30/2020 urina lysis , compl ete yeast spinner tender Not Available [facility] ([facility]) [address] [place], [address], 08/31/2020 03:07:44 08/30/19 21 08/30/2020 urina lysis , compl ete trichomonas spinner tender Not Available [facility] ([facility]) [address] [place], [address], 08/31/2020 03:07:44 08/30/19 21 08/30/2020 urina lysis , compl ete comment spinner tender Not Available [facility] ([facility]) [address] [place], [address], 08/31/2020 03:07:44 08/24/19 22 08/24/2021 THYRO ID PEROX IDASE (TPO) AB thyroid peroxidase (tpo) Ab 11 IU/mL 0-34 Not Available [facility] ([facility]) [address], [place], [address], 08/28/2021 03:07:41 08/24/19 22 08/27/2021 THYRO GLOBU MIRNA ANTIB SONIA thyroglobuli n antibody <1.0 IU/mL 0.0-0. 9 Thyro globu mirna Antib sonia measu red by Beckm an Coult er Metho dolog y Not Available [facility] ([facility]) [address], [place], [address], 08/28/2021 03:07:40 08/24/19 22 08/24/2021 VITAM IN D, 25-HY DROXY vitamin D, 25-hydroxy 32.0 NG/mL 30.0-1 00.0 Vitam in D defic iency has been defin ed by the Insti tute of Medic ine and an Endoc rine Socie ty pract ice guide line as a level of serum 25-OH vitam in D less than 20 ng/mL (1,2) . The [facility] defin e vitam in D insuf ficie ncy as a level betwe en 21 and 29 ng/mL (2). 1. IOM (Inst itute of Medic ine). 2009. Dieta ry refer ence intak es for calci um and D. Carolin brown [place]: The [facility] . 2. Nguyễn luna MF, Tati arguello [place], Redd off-F abbey i WREN, et al. Evalu ation , treat ment, and preve ntion of vitam in D defic iency : an Endoc rine Socie ty clini minnie pract ice guide line. JCEM. 2010; 96(7) :1911 -30. Not Available [facility] ([facility]) [address], [place], [address], 08/28/2021 03:07:40 08/24/19 22 08/24/2021 HEMOG LOBIN A1C hemoglobin A1C 5.0 % 4.8-5. 6 Predi abete s: 5.7 - 6.4 Diabe jemima: >6.4 Glyce sandra contr ol for adult s with diabe jemima: <7.0 Not Available [facility] ([facility]) [address] [place], [address], 08/28/2021 03:07:39 08/24/19 22 08/24/2021 VITAM IN B12 AND FOLAT E vitamin B12 347 pg/mL 232-12 45 Not Available [facility] ([facility]) [address], [place], [address], 08/28/2021 03:07:39 08/24/19 22 08/24/2021 VITAM IN B12 AND FOLAT E folate (folic acid), serum 2.8 NG/mL >3.0 below low normal A serum folat e kathia ntrat ion of less than 3.1 ng/mL is consi dered to repre sent clini minnie defic iency . Not Available [facility] ([facility]) [address] [place], [address], 08/28/2021 03:07:39 08/24/19 22 08/24/2021 LIPID PANEL W/ CHOL/ HDL RATIO cholesterol, total 174 mg/dL 100-19 9 Not Available [facility] ([facility]) [address] [place], [address], 08/28/2021 03:07:39 08/24/19 22 08/24/2021 LIPID PANEL W/ CHOL/ HDL RATIO triglyceride s 38 mg/dL 0-149 Not Available [facility] ([facility]) [address] [place], [address], 08/28/2021 03:07:39 08/24/19 22 08/24/2021 LIPID PANEL W/ CHOL/ HDL RATIO HDL cholesterol 71 mg/dL >39 Not Available [facility]) [address] [place], [address], 08/28/2021 03:07:39 08/24/19 22 08/24/2021 LIPID PANEL W/ CHOL/ HDL RATIO VLDL cholesterol minnie 8 mg/dL 5-40 Not Available [facility] ([facility]) [address] [place], [address], 08/28/2021 03:07:39 08/24/19 22 08/24/2021 LIPID PANEL W/ CHOL/ HDL RATIO LDL chol calc ([facility]) 95 mg/dL 0-99 Not Available [facility] ([facility]) [address] [place], [address], 08/28/2021 03:07:39 08/24/19 22 08/24/2021 LIPID PANEL W/ CHOL/ HDL RATIO comment: spinner tender Not Available [facility] ([facility]) [address] [place], [address], 08/28/2021 03:07:39 08/24/19 22 08/24/2021 LIPID PANEL W/ CHOL/ HDL RATIO T. chol/HDL ratio 2.5 ratio 0.0-4. 4 T. Chol/ HDL Ratio Men Women 1/2 Avg.R isk 3.4 3.3 Avg.R isk 5.0 4.4 2X Avg.R isk 9.6 7.1 3X Avg.R isk 23.4 11.0 Not Available [facility] ([facility]) [address] [place], [address], 08/28/2021 03:07:39 08/24/19 22 08/24/2021 COMP. METAB OLIC PANEL (14) glucose 84 mg/dL 65-99 Not Available [facility] ([facility]) [address] [place], [address], 08/28/2021 03:07:38 08/24/19 22 08/24/2021 COMP. METAB OLIC PANEL (14) BUN 14 mg/dL 6-24 Not Available [facility] ([facility]) [address] [place], [address], 08/28/2021 03:07:38 08/24/19 22 08/24/2021 COMP. METAB OLIC PANEL (14) creatinine 0.66 mg/dL 0.57-1 .00 Not Available [facility] ([facility]) [address] [place], [address], 08/28/2021 03:07:38 08/24/19 22 08/24/2021 COMP. METAB OLIC PANEL (14) eGFR 114 mL/mi n/1.7 3 >59 Not Available [facility] ([facility]) [address] [place], [address], 08/28/2021 03:07:38 08/24/19 22 08/24/2021 COMP. METAB OLIC PANEL (14) BUN/creatini ne ratio 21 9-23 Not Available [facility] ([facility]) [address] [place], [address], 08/28/2021 03:07:38 08/24/19 22 08/24/2021 COMP. METAB OLIC PANEL (14) sodium 139 mmol/ L 134-14 4 Not Available [facility] ([facility]) [address] [place], [address], 08/28/2021 03:07:38 08/24/19 22 08/24/2021 COMP. METAB OLIC PANEL (14) potassium 4.7 mmol/ L 3.5-5. 2 Not Available [facility] ([facility]) [address] [place], [address], 08/28/2021 03:07:38 08/24/19 22 08/24/2021 COMP. METAB OLIC PANEL (14) chloride 103 mmol/ L 96-106 Not Available [facility] ([facility]) [address] [place], [address], 08/28/2021 03:07:38 08/24/19 22 08/24/2021 COMP. METAB OLIC PANEL (14) carbon dioxide, total 22 mmol/ L Not Available [facility] ([facility]) [address] [place], [address], 08/28/2021 03:07:38 08/24/19 22 08/24/2021 COMP. METAB OLIC PANEL (14) calcium 9.5 mg/dL 8.7-10 .2 Not Available [facility] ([facility]) [address] [place], [address], 08/28/2021 03:07:38 08/24/19 22 08/24/2021 COMP. METAB OLIC PANEL (14) protein, total 6.3 g/dL 6.0-8. 5 Not Available [facility] ([facility]) [address] [place], [address], 08/28/2021 03:07:38 08/24/19 22 08/24/2021 COMP. METAB OLIC PANEL (14) albumin 4.5 g/dL 3.8-4. 8 Not Available [facility] ([facility]) [address] [place], [address], 08/28/2021 03:07:38 08/24/19 22 08/24/2021 COMP. METAB OLIC PANEL (14) globulin, total 1.8 g/dL 1.5-4. 5 Not Available [facility] ([facility]) [address] [place], [address], 08/28/2021 03:07:38 08/24/19 22 08/24/2021 COMP. METAB OLIC PANEL (14) A/G ratio 2.5 1.2-2. 2 above high normal Not Available [facility] ([facility]) [address] [place], [address], 08/28/2021 03:07:38 08/24/19 22 08/24/2021 COMP. METAB OLIC PANEL (14) bilirubin, total 0.4 mg/dL 0.0-1. 2 Not Available [facility] ([facility]) [address], [place], [address], 08/28/2021 03:07:38 08/24/19 22 08/24/2021 COMP. METAB OLIC PANEL (14) alkaline phosphatase 51 IU/L 44-121 Not Available [facility] ([facility]) [address], [place], [address], 08/28/2021 03:07:38 08/24/19 22 08/24/2021 COMP. METAB OLIC PANEL (14) AST (SGOT) 20 IU/L 0-40 Not Available [facility] ([facility]) [address], [place], [address], 08/28/2021 03:07:38 08/24/19 22 08/24/2021 COMP. METAB OLIC PANEL (14) ALT (SGPT) 11 IU/L 0-32 Not Available [facility] ([facility]) [address], [place], [address], 08/28/2021 03:07:38 08/24/19 22 08/24/2021 CBC WITH DIFFE RENTI AL/PL ATELE T WBC 4.8 x10e3 /uL 3.4-10 .8 Not Available [facility] ([facility]) [address], [place], [address], 08/28/2021 03:07:38 08/24/19 22 08/24/2021 CBC WITH DIFFE RENTI AL/PL ATELE T RBC 4.43 x10e6 /uL 3.77-5 .28 Not Available [facility] ([facility]) [address], [place], [address], 08/28/2021 03:07:38 08/24/19 22 08/24/2021 CBC WITH DIFFE RENTI AL/PL ATELE T hemoglobin 12.7 g/dL 11.1-1 5.9 Not Available [facility] ([facility]) [address] [place], [address], 08/28/2021 03:07:38 08/24/19 22 08/24/2021 CBC WITH DIFFE RENTI AL/PL ATELE T hematocrit 39.1 % 34.0-4 6.6 Not Available [facility] ([facility]) [address] [place], [address], 08/28/2021 03:07:38 08/24/19 22 08/24/2021 CBC WITH DIFFE RENTI AL/PL ATELE T RDW 11.9 % 11.7-1 5.4 Not Available [facility] ([facility]) [address] [place], [address], 08/28/2021 03:07:38 08/24/19 22 08/24/2021 CBC WITH DIFFE RENTI AL/PL ATELE T MCV 88 fL 79-97 Not Available [facility] ([facility]) [address] [place], [address], 08/28/2021 03:07:38 08/24/19 22 08/24/2021 CBC WITH DIFFE RENTI AL/PL ATELE T MCH 28.7 pg 26.6-3 3.0 Not Available [facility] ([facility]) [address] [place], [address], 08/28/2021 03:07:38 08/24/19 22 08/24/2021 CBC WITH DIFFE RENTI AL/PL ATELE T MCHC 32.5 g/dL 31.5-3 5.7 Not Available [facility] ([facility]) [address] [place], [address], 08/28/2021 03:07:38 08/24/19 22 08/24/2021 CBC WITH DIFFE RENTI AL/PL ATELE T platelets 202 x10e3 /uL 150-45 0 Not Available [facility] ([facility]) [address], [place], [address], 08/28/2021 03:07:38 08/24/19 22 08/24/2021 CBC WITH DIFFE RENTI AL/PL ATELE T neutrophils 57 % not estab. Not Available [facility] ([facility]) [address], [place], [address], 08/28/2021 03:07:38 08/24/19 22 08/24/2021 CBC WITH DIFFE RENTI AL/PL ATELE T lymphs 34 % not estab. Not Available [facility] ([facility]) [address] [place], [address], 08/28/2021 03:07:38 08/24/19 22 08/24/2021 CBC WITH DIFFE RENTI AL/PL ATELE T monocytes 7 % not estab. Not Available [facility] ([facility]) [address] [place], [address], 08/28/2021 03:07:38 08/24/19 22 08/24/2021 CBC WITH DIFFE RENTI AL/PL ATELE T eos 1 % not estab. Not Available [facility] ([facility]) [address] [place], [address], 08/28/2021 03:07:38 08/24/19 22 08/24/2021 CBC WITH DIFFE RENTI AL/PL ATELE T basos 1 % not estab. Not Available [facility] ([facility]) [address] [place], [address], 08/28/2021 03:07:38 08/24/19 22 08/24/2021 CBC WITH DIFFE RENTI AL/PL ATELE T immature cells spinner tender Not Available [facility] ([facility]) [address] [place], [address], 08/28/2021 03:07:38 08/24/19 22 08/24/2021 CBC WITH DIFFE RENTI AL/PL ATELE T neutrophils (absolute) 2.7 x10e3 /uL 1.4-7. 0 Not Available [facility] ([facility]) [address], [place], [address], 08/28/2021 03:07:38 08/24/19 22 08/24/2021 CBC WITH DIFFE RENTI AL/PL ATELE T lymphs (absolute) 1.6 x10e3 /uL 0.7-3. 1 Not Available [facility] ([facility]) [address] [place], [address], 08/28/2021 03:07:38 08/24/19 22 08/24/2021 CBC WITH DIFFE RENTI AL/PL ATELE T monocytes(ab solute) 0.4 x10e3 /uL 0.1-0. 9 Not Available [facility] ([facility]) [address] [place], [address], 08/28/2021 03:07:38 08/24/19 22 08/24/2021 CBC WITH DIFFE RENTI AL/PL ATELE T eos (absolute) 0.0 x10e3 /uL 0.0-0. 4 Not Available [facility] ([facility]) [address] [place], [address], 08/28/2021 03:07:38 08/24/19 22 08/24/2021 CBC WITH DIFFE RENTI AL/PL ATELE T baso (absolute) 0.0 x10e3 /uL 0.0-0. 2 Not Available [facility] ([facility]) [address] [place], [address], 08/28/2021 03:07:38 08/24/19 22 08/24/2021 CBC WITH DIFFE RENTI AL/PL ATELE T immature granulocytes 0 % not estab. Not Available [facility] ([facility]) [address], [place], [address], 08/28/2021 03:07:38 08/24/19 22 08/24/2021 CBC WITH DIFFE RENTI AL/PL ATELE T immature grans (abs) 0.0 x10e3 /uL 0.0-0. 1 Not Available [facility] ([facility]) [address], [place], [address], 08/28/2021 03:07:38 08/24/19 22 08/24/2021 CBC WITH DIFFE RENTI AL/PL ATELE T NRBC spinner tender Not Available [facility] ([facility]) [address] [place], [address], 08/28/2021 03:07:38 08/24/19 22 08/24/2021 CBC WITH DIFFE RENTI AL/PL ATELE T hematology comments: spinner tender Not Available [facility] ([facility]) [address], [place], [address], 08/28/2021 03:07:38 08/24/19 22 08/24/2021 TSH+F REE T4 TSH 1.750 uIU/m L 0.450- 4.500 Not Available [facility] ([facility]) [address] [place], [address], 08/28/2021 03:07:37 08/24/19 22 08/24/2021 TSH+F REE T4 T4,free(dire ct) 1.41 NG/dL 0.82-1 .77 Not Available [facility] ([facility]) [address] [place], [address], 08/28/2021 03:07:37 08/24/19 22 08/24/2021 FE+TI BC+FE R iron bind.cap.(TI BC) 260 ug/dL 250-45 0 Not Available [facility] ([facility]) [address] [place], [address], 08/28/2021 03:07:36 08/24/19 22 08/24/2021 FE+TI BC+FE R UIBC 194 ug/dL 131-42 5 Not Available [facility] ([facility]) [address] [place], [address], 08/28/2021 03:07:36 08/24/19 22 08/24/2021 FE+TI BC+FE R iron 66 ug/dL 27-159 Not Available [facility] ([facility]) [address] [place], [address], 08/28/2021 03:07:36 08/24/19 22 08/24/2021 FE+TI BC+FE R iron saturation 25 % 15-55 Not Available [facility] ([facility]) [address] [place], [address], 08/28/2021 03:07:36 08/24/19 22 08/24/2021 FE+TI BC+FE R ferritin 35 NG/mL 15-150 Not Available [facility] ([facility]) [address] [place], [address], 08/28/2021 03:07:36 09/14/19 22 09/15/2021 URINE CULTU RE, LAMBERTOI NE urine culture, routine final report Not Available [facility] ([facility]) [address] [place], [address], 09/15/2021 03:06:11 09/14/19 22 09/15/2021 URINE CULTU RE, ROUTI NE result 1 commen t Cultu re shows less than 10,00 0 colon y formi ng units of bacte jill per [place] liter of urine . This colon y count is not gener ally consi dered to be clini angi signi fican t. Not Available [facility] ([facility]) [address] [place], [address], 09/15/2021 03:06:11 09/14/19 22 09/14/2021 URINA LYSIS , COMPL ETE appearance clear clear Not Available [facility] ([facility]) [address] [place], [address], 09/15/2021 03:06:09 09/14/19 22 09/14/2021 URINA LYSIS , COMPL ETE trichomonas spinner tender Not Available [facility] ([facility]) [address] [place], [address], 09/15/2021 03:06:09 09/14/19 22 09/14/2021 URINA LYSIS , COMPL ETE comment spinner tender Not Available [facility] ([facility]) [address] [place], [address], 09/15/2021 03:06:09 09/14/19 22 09/14/2021 URINA LYSIS , COMPL ETE specific gravity 1.007 1.005- 1.030 Not Available [facility] ([facility]) [address] [place], [address], 09/15/2021 03:06:09 09/14/19 22 09/14/2021 URINA LYSIS , COMPL ETE pH 7.0 5.0-7. 5 Not Available [facility] ([facility]) [address] [place], [address], 09/15/2021 03:06:09 09/14/19 22 09/14/2021 URINA LYSIS , COMPL ETE urine-color yellow yellow Not Available [facility] ([facility]) [address] [place], [address], 09/15/2021 03:06:09 09/14/19 22 09/14/2021 URINA LYSIS , COMPL ETE WBC esterase negati ve negati ve Not Available [facility] ([facility]) [address] [place], [address], 09/15/2021 03:06:09 09/14/19 22 09/14/2021 URINA LYSIS , COMPL ETE protein negati ve negati ve/tra ce Not Available [facility] ([facility]) [address], [place], [address], 09/15/2021 03:06:09 09/14/19 22 09/14/2021 URINA LYSIS , COMPL ETE glucose negati ve negati ve Not Available [facility] ([facility]) [address] [place], [address], 09/15/2021 03:06:09 09/14/19 22 09/14/2021 URINA LYSIS , COMPL ETE ketones negati ve negati ve Not Available [facility] ([facility]) [address] [place], [address], 09/15/2021 03:06:09 09/14/19 22 09/14/2021 URINA LYSIS , COMPL ETE occult blood negati ve negati ve Not Available [facility] ([facility]) [address] [place], [address], 09/15/2021 03:06:09 09/14/19 22 09/14/2021 URINA LYSIS , COMPL ETE bilirubin negati ve negati ve Not Available [facility] ([facility]) [address] [place], [address], 09/15/2021 03:06:09 09/14/19 22 09/14/2021 URINA LYSIS , COMPL ETE urobilinogen ,semi-qn 0.2 mg/dL 0.2-1. 0 Not Available [facility] ([facility]) [address] [place], [address], 09/15/2021 03:06:09 09/14/19 22 09/14/2021 URINA LYSIS , COMPL ETE nitrite, urine negati ve negati ve Not Available [facility] ([facility]) [address] [place], [address], 09/15/2021 03:06:09 09/14/19 22 09/14/2021 URINA LYSIS , COMPL ETE microscopic examination commen t Micro scopi c follo ws if indic ated. Not Available [facility] ([facility]) [address] [place], [address], 09/15/2021 03:06:09 09/14/19 22 09/14/2021 URINA LYSIS , COMPL ETE microscopic examination see below: Micro scopi c was indic ated and was perfo rmed. Not Available [facility] ([facility]) [address], [place], [address], 09/15/2021 03:06:09 09/14/19 22 09/14/2021 URINA LYSIS , COMPL ETE WBC none seen /hpf 0 - 5 Not Available [facility] ([facility]) [address] [place], [address], 09/15/2021 03:06:09 09/14/19 22 09/14/2021 URINA LYSIS , COMPL ETE RBC none seen /hpf 0 - 2 Not Available [facility] ([facility]) [address] [place], [address], 09/15/2021 03:06:09 09/14/19 22 09/14/2021 URINA LYSIS , COMPL ETE epithelial cells (non renal) 0-10 /hpf 0 - 10 Not Available [facility] ([facility]) [address] [place], [address], 09/15/2021 03:06:09 09/14/19 22 09/14/2021 URINA LYSIS , COMPL ETE epithelial cells (renal) spinner tender Not Available [facility] ([facility]) [address] [place], [address], 09/15/2021 03:06:09 09/14/19 22 09/14/2021 URINA LYSIS , COMPL ETE casts none seen /lpf none seen Not Available [facility] ([facility]) [address], [place], [address], 09/15/2021 03:06:09 09/14/19 22 09/14/2021 URINA LYSIS , COMPL ETE cast type spinner tender Not Available [facility] ([facility]) [address], [place], [address], 09/15/2021 03:06:09 09/14/19 22 09/14/2021 URINA LYSIS , COMPL ETE crystals spinner tender Not Available [facility] ([facility]) [address], [place], [address], 09/15/2021 03:06:09 09/14/19 22 09/14/2021 URINA LYSIS , COMPL ETE crystal type spinner tender Not Available [facility] ([facility]) [address], [place], [address], 09/15/2021 03:06:09 09/14/19 22 09/14/2021 URINA LYSIS , COMPL ETE mucus threads spinner tender Not Available [facility] ([facility]) [address], [place], [address], 09/15/2021 03:06:09 09/14/19 22 09/14/2021 URINA LYSIS , COMPL ETE bacteria none seen none seen/f ew Not Available [facility] ([facility]) [address], [place], [address], 09/15/2021 03:06:09 09/14/19 22 09/14/2021 URINA LYSIS , COMPL ETE yeast spinner tender Not Available [facility] ([facility]) [address], [place], [address], 09/15/2021 03:06:09 03/06/20 22 03/06/2022 rapid flu (A+B) Flu A positi ve Not Available [facility] [address], [place], [address], 03/06/2022 15:13:20 03/06/20 22 03/06/2022 rapid flu (A+B) Flu B negati ve Not Available [facility] [address], [place], [address], 03/06/2022 15:13:20 09/20/19 21 09/18/2020 MAMMO , marni huffg, bilat eral No observ ation record ed. MIGRATION. [address] [place] [address] [address] [facility], [place], [address], 05/28/2022 02:59:32 10/13/19 21 09/03/2020 colon oscop y proce dure (PROC ) No observ ation record ed. MIGRATION. [address] [place] [address] [address] [facility], [place], [address], 05/28/2022 02:59:32 11/02/19 21 11/01/2020 US, abdom en, compl ete No observ ation record ed. MIGRATION. [address] [place] [address] (Imaging) [address] [place] [address] [address] [facility], [place], [address], 05/28/2022 02:59:32 11/10/19 21 11/08/2020 XR, ribs, unila teral No observ ation record ed. MIGRATION. [address] [place] [address] [address], [place], [address], 05/28/2022 02:59:32 09/25/19 22 09/23/2021 MAMMO , fredie abbie, digit al, bilat eral No observ ation record ed. MIGRATION. [address], [place], [address], 05/28/2022 02:59:32 09/17/19 23 09/15/2022 marni DE PAZ, mikayla verduzco No observ ation record ed. [email or web address] [facility] [address], [place], [address], 11/05/2022 16:40:29 Result Notes None recorded. Problems Name Problem SNOMED Code Status Onset Date Resolution Date Notes Provider Name and Address Organization Details Recorded Time Lower urinary tract symptoms 233888370 Active still happens after menstral cycle Not Available [facility] 3 02:51:06 Acute sinusitis 48615503 Active 2021 Not Available [facility] 3 02:51:06 Occult blood detected in feces 25634046 Active 2021 Not Available [facility] 3 02:51:07 Fatigue 97123125 Active 2021 Not Available [facility] 3 02:51:07 Altered bowel function 65462673 Active 2021 Not Available [facility] 3 02:51:07 Acute urinary tract infection 096761157 Active 2021 Not Available [facility] 3 02:51:06 Fever 495129027 Active 2021 Not Available [facility] 3 02:51:06 Influenza caused by Influenza A virus 275628891 Active 2021 Not Available [facility] 3 02:51:06 Eruption 589941087 Active 2022 [facility] [address], [place], [address] , [employer] [facility] [employer] 3 12:58:21 Genital lichen planus 604174165 Active 2022 [facility] [address], [address], [place], [address] , [employer] [facility] [employer] [facility] 3 10:58:15 Bee sting 902128244 Active 2022 [facility] [address] [facility], [address], [place], [address] , [facility] [employer] 3 13:53:56 Problem Notes None recorded. Procedures Surgical History Date Name Laterality Status Provider Name and Address Organization Details Recorded Time 09/04/19 21 Date of Last Colonoscopy completed Not Available [facility] 05/28/2022 02:44:49 09/04/19 21 Colonoscopy completed Not Available [facility] 05/29/19 02:44:54 03/30/19 14 Polyp Removal completed Not Available [facility] 2022 02:44:54 03/30/19 01 excision of ganglion cyst completed Not Available [facility] 05/28/2022 02:44:54 03/30/18 92 tonsilectomy/ad enoids completed Not Available [facility] 05/28/2022 02:44:54 Imaging Results None recorded. Procedure Notes None recorded. Medical Equipment None Reported. Allergies Allergen ID Allergen Name Allergen Category Reaction Reaction Severity Criticality Documentation Date Start Date Code Code System Note Provider Name and Address Organization Details Recorded Time 4556 clindamyc in Not available rash Not available Not available 05/28/2022 2582 RxNorm Not Available [facility] 3 02:59:02 4557 Bactrim medicatio n hives Not available Not available 05/28/2022 57352 9 RxNorm Not Available [facility] 3 02:59:02 Medications Name Sig Start Date Stop Date Status Note LastModified by Organization Details LastModified Time albuterol sulfate 2.5 mg/3 mL (0.083 %) solution for nebulizatio n Inhale 3 mL every day by nebulizat ion route. 06/19 completed Not Available Not Available Not Available fluconazole 150 mg tablet TAKE 1 TABLET BY MOUTH 08/12 completed Not Available Not Available Not Available benzonatate 200 mg capsule Take 1 capsule 3 times a day by oral route as directed. active Not Available Not Available No t Available prednisone 20 mg tablet TAKE 2 TABLETS BY MOUTH EVERY DAY FOR 5 DAYS active Not Available Not Available No t Available ciprofloxac in 500 mg tablet TAKE 1 TABLET BY MOUTH EVERY 12 HOURS 03/06 completed Not Available Not Available Not Available triamcinolo ne acetonide 0.1 % topical cream APPLY A THIN LAYER TO THE AFFECTED AREA(S) of leg BY TOPICAL ROUTE 2 TIMES PER DAY active Not Available Not Available No t Available imiquimod 5 % topical cream packet active Not Available Not Available Not Available oseltamivir 75 mg capsule Take 1 capsule twice a day by oral route for 5 days. 09/08 completed Not Available Not Available Not Available norgestimat e-ethinyl estradiol 0.18mg/0.21 5mg/0.25mg- 0.035mg(28) tablet take as directed. 06/11 completed Not Available Not Available Not Available clobetasol 0.05 % topical ointment APPLY THIN LAYER TOPICALLY TO THE AFFECTED AREA 3 TIMES WEEKLY active Not Available Not Available No t Available fluocinonid e 0.05 % topical solution APPLY TWICE DAILY TO SCALP active Not Available Not Available No t Available methylpredn isolone 4 mg tablets in a dose pack FOLLOW PACKAGE DIRECTION S 08/12 completed Not Available Not Available Not Available cefdinir 300 mg capsule Take 1 capsule every 12 hours by oral route. active Not Available Not Available No t Available fluticasone propionate 50 mcg/actuati on nasal spray,suspe nsion one spray each nostril bid active Not Available Not Available No t Available amoxicillin 875 mg-potassiu m clavulanate 125 mg tablet TAKE 1 TABLET BY MOUTH EVERY 12 HOURS WITH MEALS active Not Available Not Available No t Available azelaic acid 15 % topical gel APPLY BID TO FACE 06/11 completed Not Available Not Available Not Available Ortho-Cycle n (28) 0.25 mg-35 mcg tablet TK 1 T PO QD active Not Available Not Available No t Available nitrofurant oin monohydrate /macrocryst als 100 mg capsule TAKE 1 CAPSULE BY MOUTH EVERY 12 HOURS active Not Available Not Available No t Available metronidazo le 1 % topical gel APPLY TWICE DAILY TO FACE active Not Available Not Available No t Available folic acid active Not Available Not Av ailable Not Available Vitamin daily 09/08 completed Not Available Not Available Not Available Elderberry 03/06 completed Not Available Not Available Not Available Virtussin AC 10 mg-100 mg/5 mL oral liquid TK 10 ML PO Q 6 H PRF COUGH 06/19 completed Not Available Not Available Not Available Fluzone 2912-1060 45 mcg (15 mcg x 3)/0.5 mL intramuscul ar suspension active Not Available Not Available N ot Available ID NOW COVID-19 Test Kit DIRECTED 11/08 completed Not Available Not Available Not Available COVID-19 test specimen collection USE DIRECTED 11/08 completed Not Available Not Available Not Available Vitals Date Recorded Body mass index (BMI) Body height Oxygen saturation Oxygen saturation in Arterial blood by Pulse oximetry Heart rate Respiratory rate Body temperature Body weight Systolic And Diastolic Provider Name and Address Organization Details Last Updated DateTime 1 26.3 kg/m2 167.64 cm 98 % 98 % 69 /min 16 /min 97.3 [degF] 94848.5 6 g 118/78 mm[Hg] Not Available [facility] 3 02:47:10 Date Recorded Body mass index (BMI) Body height Oxygen saturation Oxygen saturation in Arterial blood by Pulse oximetry Heart rate Respiratory rate Body temperature Body weight Systolic And Diastolic Provider Name and Address Organization Details Last Updated DateTime 2 25.7 kg/m2 167.64 cm 98 % 98 % 74 /min 16 /min 98.1 [degF] 90579.1 9 g 110/68 mm[Hg] Not Available [facility] 3 02:47:10 Date Recorded Body height Body temperature Body mass index (BMI) Body weight Respiratory rate Oxygen saturation Oxygen saturation in Arterial blood by Pulse oximetry Heart rate Systolic And Diastolic Provider Name and Address Organization Details Last Updated DateTime 3 167.64 cm 97.8 [degF] 26.3 kg/m2 12853.5 6 g 16 /min 98 % 98 % 72 /min 122/70 mm[Hg] ЕКАТЕРИНА [place] [facility] 3 10:36:06 Date Recorded Body mass index (BMI) Body height Oxygen saturation Oxygen saturation in Arterial blood by Pulse oximetry Heart rate Body temperature Body weight Systolic And Diastolic Provider Name and Address Organization Details Last Updated DateTime 1 26.2 kg/m2 167.64 cm 98 % 98 % 72 /min 98 [degF] 97017.4 g 110/70 mm[Hg] Not Available [facility] 3 02:47:10 Date Recorded Body mass index (BMI) Body height Oxygen saturation Oxygen saturation in Arterial blood by Pulse oximetry Heart rate Body temperature Body weight Systolic And Diastolic Provider Name and Address Organization Details Last Updated DateTime 2 25.8 kg/m2 167.64 cm 98 % 98 % 75 /min 97.3 [degF] 91610.7 8 g 114/70 mm[Hg] Not Available [facility] 3 02:47:10 Social History Question Answer Notes LastModified by Sansan Details LastModified Time Tobacco Smoking Status Smoker, Current Status Unknown Not Available [facility] 05/28/2022 02:35:38 What Is Your Level Of Caffeine Consumption? Moderate [id number] Information not available 05/28/2022 How Much Tobacco Do You Chew? None [id number] Information not available 05/28/2022 In The 14 Days Before Symptom Onset, Have You Had Close Contact With A Laboratory-confirm ed COVID-19 While That Case Was Ill? No [id number] Information not available 05/28/2022 In The 14 Days Before Symptom Onset, Have You Had Close Contact With A Person Who Is Under Investigation For COVID-19 While That Person Was Ill? No [id number] Information not available 05/28/2022 What Type Of Diet Are You Following? REGULAR [id number] Information not available 05/28/2022 Which Illicit Or Recreational Drugs Have You Used? None [id number] Information not available 05/28/2022 Are There Any Guns Present In Your Home? Yes [id number] Information not available 05/28/2022 Sex: Unknown Functional Status Question Answer Note LastModified by [employer] Details LastModified Time What is your level of alcohol consumption? 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 Moderate [id number] 26 Information not available 05/28/2022 Mental Status None recorded. Family History Relationship Description Onset Age of this Age Resolved Age Notes LastModified by Organization Details LastModified Time Father Diabetes mellitus [id number] Not available 05/28/2022 02:44:57 Father Hypertensive disorder [id number] Not available 05/28/2022 02:44:57 Father Disorder of thyroid gland [id number] Not available 05/28/2022 02:44:58 Mother Hypercholest erolemia [id number] Not available 05/28/2022 02:44:58 Medical History Condition Response NERVE DISEASE N BLINDNESS N RHEUMATIC FEVER N KIDNEY STONES N BLADDER PROBLEMS N OTHER # 1 N POLIO N LUNG DISEASE/DISORDER N RADIATION / CHEMOTHERAPY N COPD N Other # 2 N BLOOD DISEASES N SURGERY N EAR OR HEARING PROBLEMS N MUMPS N BOWEL PROBLEMS N DEPRESSION (INCLUDING POST ) N STROKE/TIA N ULCERS N BENIGN PROSTATIC HYPERPLASIA N MEASLES N MYOCARDIAL INFARCTION N OBESITY N GERD/NAUSEA N ANEURYSM N URINARY/BLADDER/KIDNEY PROBLEMS N INPATIENT PSYCH CARE N CORONARY ARTERY DISEASE (CAD) N ADDICTION CONCERNS N ENDOMETRIOSIS N Impotence N USE OF BLOOD THINNERS N SKIN PROBLEMS N GASTROINTESTINAL DISORDER N PERIPHERAL VASCULAR DISEASE N MUSCLE,JOINT OR BONE PROBLEMS N GASTROINTESTINAL BLEEDING N BLOOD CLOTS N ASTHMA N CATARACTS N ERECTILE DYSFUNCTION N VARICOSITIES N GI PROBLEMS N Low Testosterone N INFERTILITY N AIDS/HIV N LIVER DISEASE N MALE HYPOGONADISM N HYPERTENSION N Deficiency N ANXIETY DISORDER N BLOOD TRANSFUSION N ANEMIA/BLOOD DISORDER N CHRONIC EAR INFECTIONS N BRONCHITIS N TUBERCULOSIS N GLAUCOMA N FOOT PROBLEM N DIVERTICULITIS N SLEEP APNEA N CHICKENPOX N INFECTIOUS DISEASE N HEART ARRHYTHMIA N PROSTATE N INSOMNIA N HIGH CHOLESTEROL / HYPERLIPIDEMIA N HYPERTHYROIDISM N EYE PROBLEMS N NEUROLOGICAL PROBLEMS N EDEMA N CHRONIC PAIN SYNDROME N HYPOTHYROIDISM N CAROTID BLOCKAGE N CONSTIPATION N BACK / NECK PROBLEMS N HAVE YOU BEEN HOSPITALIZED OR SEEN IN [facility] IN THE PAST YEAR ? N ATHEROSCLEROSIS N BREAST PROBLEMS N DIALYSIS N ECZEMA N OSTEOPOROSIS N ARTHRITIS N NO SIGNIFICANT PAST MEDICAL HISTORY N APPENDICITIS N DIABETES, TYPE N BAD TEETH N ENT N HEARTBURN / REFLUX N AUTISM SPECTRUM DISORDER (ASD) N HEPATITIS / LIVER DISEASE N PULMONARY DISEASE N GOUT N SLEEP DISORDER N ALZHEIMER'S DISEASE N Brain Problems N HERPES N DEMENTIA N HEADACHES/MIGRAINES Y SEIZURES/EPILEPSY N VASCULAR DISEASE N PACEMAKER N Blood Disorder N DIZZINESS N HEART DISEASE/HEART PROBLEMS N KIDNEY DISEASE N MULTIPLE SCLEROSIS N CARDIAC ARRHYTHMIA N CANCER: SPECIFY N ANESTHESIA COMPLICATIONS N ATRIAL FIBRILLATION N Gall Stones N PULMONARY EMBOLISM N AUTOIMMUNE DISEASE N Gynecological History Statement/Question Response Date of Last Pap 10/28/2014 Date of Last Mammogram 09/18/2020 Date of Last Colonoscopy 09/03/2020 Sexually Active? Y Obstetrics History GPAL:G 0 P 0 0 0 0 Past Encounters Encounter ID Performer Location Encounter Start Date Encounter Closed Date Diagnosis/Indication Diagnosis SNOMED-CT Code Diagnosis ICD10 Code Diagnosis Note [id number] JO Church [facility] [place] [address] [place] [address] 06/11/2020 00:00:00 06/27/2020 12:02:37 [id number] JO Church [facility] [place] [address] [place] [address] 11/08/2020 00:00:00 11/27/2020 16:55:49 [id number] Delon Acosta MD [facility] [place] [address] [place] [address] 08/12/2021 00:00:00 08/26/2021 23:44:09 [id number] JO Church [facility] [place] [address] [place] [address] 03/06/2022 00:00:00 03/28/2022 00:31:10 [id number] JO Church [facility] [place] [address] [place] [address] 09/08/2022 10:31:02 09/08/2022 11:06:11 Adult health examination 738512848 Z00.00 annual wellness completed. routine annual labs ordered. Diabetes m ellitus screening 359620255 Z13.1 screening for diabetes ordered. Cholesterol screening 27 9144855 Z13.220 screening fasting lipids. Thyroid di sorder screening 984971184 Z13.29 screening TFTs due. Screening mammography 24 529467 Z12.31 mammogram due. 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 Health Concerns Section Related Observation LastModified by Organization Detai ls LastModified Time None Recorded Concern Status LastModified by Organization Details LastModified Time None Recorded Advance Directives Directive None Recorded Payers Insurance Date Sequence Insurance Name Policy Number Policy Kline Covered Member ID Kline Member ID Guarantor Name 09/22/2022 1 [place] [id number] Carmen Zapata [id number] Carmen Zapata Notes Date Note Type Note Provider Name and Address Organization Details Recorded Time 06/11/2020 text/html Abdominal PainReported bypatient.Location:[facility]OO Q Quality:tender Severity:pain level 6/10 Duration:intermittent ; started: (4-5 weeks) Onset/Timing:about the same. Context:IBS Aggravating Factors:nothing makes it worse Alleviating Factors:nothing gives relief Associated Symptoms:no fever; no chills; no blood in the urine; no heartburn; no shortness of breath; no vomiting; no constipation; normal stool; normal appetite;nausea;diarr hea;constipation;red blood stool(only once since Apr.) Other:denies possible Pain Radiation:no radiation Previous Tests, Treatment and/or Diagnostic Procedures:noneGeneri c HPI TemplateReported bypatient.Notes:Pt is here for her wellness. No chronic problems. Not Available [facility] 06/27/2020 12:02:37 11/08/2020 text/html General PainRepo rted bypatient.Location:pa in is not radiating; left side of rib cage area. Severity:same Timing:intermittent Quality:dull Duration:present <1 month Alleviating Factors:nothing helps Aggravating Factors:nothing makes it worse Not Available [facility] 11/27/2020 16:55:49 08/12/2021 text/html Generic HPI TemplateReported bypatient.Notes:Welln ess check. Pt is now feeling like there might be fluid in L ear. Started two days ago. No pain just a little discomfort with it. Not Available [facility] 08/26/2021 23:44:09 03/06/2022 text/html Generic HPI TemplateReported bypatient.Notes:pt c/o headache, chills, pressure behind eyes and in bilateral ears, runny/stuffy nose w/ clear discharge upon blowing, sinus drainage w/ mild throat irritation, dry cough, T last noc was 100.4. Tends to mostly spike at noc. NO sob/wheezing. Onset 2 days ago. OTC covid test today is negative Not Available [facility] 03/28/2022 00:31:10 09/08/2022 text/html Generic HPI TemplateReported bypatient.Notes:Pt is here for her wellness. No chronic prob/meds. Wellness JO Church [address] [facility] [facility] [address], [place], [address], [facility] 09/21/2022 23:36:28 OBGyn Episode No OBEpisode recorded.
== END 2024-10-20 07:40 | disposition home or self-care (01) ==
LOC: ANHIMG 07:42
PROVIDERS: PCP Physician Assistant; Visit Provider Physician Assistant
DX: Z12.31 Encounter for screening mammogram for malignant neoplasm of breast (principal); R92.8 Other abnormal and inconclusive findings on diagnostic imaging of breast
CPT/HCPCS: 77063; 77067

== ENCOUNTER 2024-10-27 11:14 | Outpatient (CLI) | payer BC, SELFPAY ==
--- NOTE | ~2024-10-27 | MMUS_ITS ---
EXAMINATION: MM diagnostic verna LT w babatunde, US breast LT limited HISTORY: Follow-up left breast asymmetry TECHNIQUE: Additional 3-D tomosynthesis images of the left breast were performed and synthetic 2-D im ages were generated. CAD analysis was submitted and interpreted. High resolution Limited left breast ultrasound was performed. COMPARISON: No prior studies for comparison. BREAST PARENCHYMAL COMPOSITION: Dense: The breasts are heterogeneously dense, which may obscure small masses FINDINGS: MAMMOGRAPHIC FINDINGS: Focal asymmetry laterally in the left breast on CC view, compresses with spot views. No suspicious ma sses, calcifications or architectural distortion in the left breast to suggest malignancy. ULTRASOUND: Limited left breast ultrasound: Normal heterogeneous echotexture without focal solid or cystic mass. IMPRESSION: 1. No evidence for malignancy in the left breast. 2. Routine yearly screening mammogram and regular clinical breast examination are recommended. BI-RADS Category 1: Negative Reviewed, dictated and finalized at location B. IMPRESSION: 1. No evidence for malignancy in the left breast. 2. Routine yearly screening mammogram and regular clinical breast examination a re recommended. BI-RADS Category 1: Negative
--- OUTSIDE RECORDS SUMMARY | 2024-10-27 11:25 | XMS_ITS | Encounter Summary ---
Author Organization [facility] Address [address] [place] [address] Care Team Providers Care Hook And Eye Machine Operator Name Role Phone Camryn Alonzo MD Primary Care Provider [phone] Encounter Details Date Type Department Care Team (Late st Contact Info) Description 12/18/1998 Outpatient Historical HIS [facility] DR. 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
--- OUTSIDE RECORDS SUMMARY | 2024-10-27 11:25 | XMS_ITS | Clinical Summary ---
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 Gender Identity Not on file Sexual Orientation Not on file Occupation Industry Job Start Date Job End Date Not on file Not on file Not on file Not on file Last Filed Vital Signs Vital Sign Reading Time Taken Comments Blood Pressure 136/88 04/15/2018 1:51 PM PICKLING DRUM OPERATOR Pulse 65 04/15/2018 1:51 PM PICKLING DRUM OPERATOR Temperature 36.8 C (98.2 F) 04/15/2018 1:51 PM PICKLING DRUM OPERATOR Respiratory Rate 16 02/06/2014 3:57 PM PICKLING DRUM OPERATOR Oxygen Saturation 98% 04/15/2018 1:51 PM PICKLING DRUM OPERATOR Inhaled Oxygen Concentration - - Weight 75 kg (165 lb 4.8 oz) 04/15/2018 1:51 PM PICKLING DRUM OPERATOR Height 167.6 cm (5' 6) 04/15/2018 1:51 PM PICKLING DRUM OPERATOR Body Mass Index 26.68 04/15/2018 1:51 PM PICKLING DRUM OPERATOR Plan of Treatment Health Maintenance Due Date [...] SUREPATH W/RFLX HPV Routine 05/27/2012 1:40 PM PICKLING DRUM OPERATOR Screening for malignant neoplasm of the cervix from Last 3 Months or Most Recently Relevant to Health Maintenance Results * MAMMO DIAGNOSTIC BILATERAL W OR WO CAD (02/23/2018) Anatomical Region Laterality Modality Breast Bilateral Mammography us Abstract Provider MAMMO ORDERABLES Final Result * CERV/VAG CYTOPATH, SUREPATH W/RFLX HPV (05/27/2012 1:40 PM PICKLING DRUM OPERATOR) CLINICAL INFORMATION HEALTH[facility] LAST MENSTRUAL PERIOD 05/18/2012 [facility] PAP INTERP Negative for intraepithelial lesion or malignancy. [facility] Comment: Performed by [facility], [facility] [place] [address] Tankage Grinder Operator Pap Comment Based on the cytology result, reflex High Risk HPV DNA testing was not performed. [facility] ADEQUACY: Satisfactory for evaluation. Endocervical/trans formation zone component present. [facility] SOURCE Endocervix [facility] PREV PAP: WNL [facility] CYTOTECHNOLOGI ST: KMY, CT(ASCP) [facility] PREV BX: NO [facility] Endocervical 05/27/2012 1:40 PM PICKLING DRUM OPERATOR 05/27/2012 8:30 PM PICKLING DRUM OPERATOR Comment:ENDOCERVICAL us Denise Elmore MD PATHOLOGY/CYTOLOGY ORDERABLES E dited [facility] CLIA# [id number] [address] [facility] [place] [address] from Last 3 Months or Most Recently Relevant to Health Maintenance Insurance [facility] [id number] Care Teams Clinical Services Manager Relationship Specialty Start Date End Date Camryn Alonzo MD [address] [place] [address] PCP - General Obstetrics and Gynecology 04/06/18
--- OUTSIDE RECORDS SUMMARY | 2024-10-27 11:25 | XMS_ITS | Clinical Summary ---
Author Organization [facility] [employer] Address [address] [place] [address] Care Team Providers Care Pheresis Specialist Name Role Phone Daniella Toscano Primary Care Pr ovider Maria Del Rosario Chen MD Unavailable [phone] Source Comments [facility],non-owned Affiliates and Associated Physician Practices is amultiple site organization consisting of ambulatory clinics and hospital sitesin [place], [place], [place] and [place]. This disclosure is being madepursuant to the Care Everywhere program and may not contain all information available regarding this patient. Last updated 17.[facility] [employer] Allergies Active Allergy Reactions Criticality Noted Date [...] age to complete this topic Insurance [facility] Care Teams Pheresis Specialist Relationship Specialty Start Date End Date Daniella Toscano PA [address] [place] [phone] PCP - General Physician Power Press Tender 12/11/15 [place] [address] [facility] [address] [place] [phone] 12/11/15
--- OUTSIDE RECORDS SUMMARY | 2024-10-27 11:25 | XMS_ITS | Encounter Summary ---
Author Organization [employer] Address [address] [place] [address] Care Team Providers Care Lab Coordinator Name Role Phone Camryn Alonzo MD Primary Care Provider [phone] Encounter Details Date Type Department Care Team (Late st Contact Info) Description 01/22/1999 Outpatient Historical HIS MMG DR[facility] 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
== END 2024-10-27 11:15 | disposition home or self-care (01) ==
LOC: ANHIMG 11:21
PROVIDERS: PCP Physician Assistant; Visit Provider Physician Assistant
DX: R92.8 Other abnormal and inconclusive findings on diagnostic imaging of breast (principal)
CPT/HCPCS: 76642; 77061; 77065; G0279

== ENCOUNTER 2025-03-20 13:32 | Outpatient (CLI) | payer BC, SELFPAY ==
--- NOTE | ~2025-03-20 | MR_ITS ---
EXAMINATION: MR knee RT wo con DATE: 03/20/2025 14:21 INDICATION: Right knee joint effusion TECHNIQUE: Magnetic resonance imaging (MRI) of the right knee was performed without intravenous contrast. Sequences included coronal PD-weighted FSE, coronal PD-weighted FS FSE, sagittal T2-weighted FSE, sagittal PD-weighted FS FSE and axial PD weighted fat saturated FSE. COMPARISON: None. FINDINGS: Medial compartment: Medial meniscus is normal. Focal partial-thickness chondral fissuring involving approximately 50% the cartilage thickness at the central aspect of the medial tibial plateau and juxtaposed anterior weightbearing medial femoral condyle, both without underlying degenerative subchondral changes.. Lateral compartment: Lateral meniscus is normal. Focal chondral swelling with increased signal but without definitive fissuring at the posterior aspect of the lateral tibial plateau extending onto the shoulder of the intercondylar eminence. Patellofemoral compartment: Small deep chondral ulcer at the inferolateral aspect of the lateral patellar facet with additional deep chondral fissuring extending medially across the inferior aspect of the lateral facet. Additional full/near full-thickness chondral fissuring at the central aspect of the medial patellar facet. No d egenerative subchondral changes at the patella. Small region of deep chondral ulceration at the cephalad aspect of the trochlear groove without degenerative subchondral changes. Ligaments and tendons: Anterior and posterior cruciate ligaments are normal. The medial collateral ligament and fibular collateral ligament complex are normal. The extensor mechanism is normal. The visualized medial and lateral hamstring tendons as well as the iliotibial band are normal. Fluid: Likely reactive small to moderate-sized knee joint effusion at the suprapatellar pouch. No loose osteochondral bodies identified. Osseous/other: Normal marrow signal. No fracture or pathologic marrow replacing process. IMPRESSION: 1. 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 2. Normal menisci and stabilizing ligaments of the knee. 3. Small to moderate-sized likely reactive knee joint effusion. Reviewed, dictated and finalized at location A. D LIFE SPECIALIST IMPRESSION: 1. Mild tricompartmental osteoarthritis with regions of moderate grade chondrom alacia in the medial and more prominently in the patellofemoral compartment and low-grade chondromalacia in the lateral compartment. 2. Normal menisci and stabilizing ligaments of the knee. 3. Small to moderate-sized likely reactive knee joint effusion.
--- OUTSIDE RECORDS SUMMARY | 2025-03-20 15:16 | XMS_ITS | Clinical Summary ---
Author Organization [facility] [employer] Address [address] [address] Care Team Providers Care Warehouse Director Name Role Phone Daniella Toscano Primary Care Pr ovider Maria Del Rosario Chen MD Unavailable [phone] Source Comments [facility],non-owned Affiliates and Associated Physician Practices is amultiple site organization consisting of ambulatory clinics and hospital sitesin [place], [place], [place] and [place]. This disclosure is being madepursuant to the Care Everywhere program and may not contain all information available regarding this patient. Last updated 17.[facility] [employer] Allergies Active Allergy Reactions Criticality Noted Date [...] VACCINE (1 - 3-dose SCDM series) 12/16/2007 DEPRESSION SCREENING 03/30/2024 COVID-19 VACCINE (1 - 2024-2 6 season) 2024 INFLUENZA VACCINE (#1) 2024 ZOSTER VACCINE (1 [...] age to complete this topic Insurance [facility] Care Teams Warehouse Director Relationship Specialty Start Date End Date Daniella Toscano PA [address] [place] [phone] PCP - General Physician Street Supervisor 12/11/15 [place] [address] [facility] [address] [place] [phone] 12/11/15
--- OUTSIDE RECORDS SUMMARY | 2025-03-20 15:16 | XMS_ITS | Data Portability ---
Author Organization [facility], Main Office Address [address] [place] [address] Assessment Encounter Date Assessment Date Assessment LastModified [...] [place] [facility], [address], [place], [address], 08:57:29 lipid panel, serum 2022 023 [email or web address] [facility], [address], [place], [address], 3 10:58:43 HbA1c (hemoglobi n A1c), blood 2022 023 [email or web address] [facility], [address], [place], [address], 3 10:58:35 CMP, serum or plasma 2022 023 [email or web address] [facility], [address], [place], [address], 3 10:58:18 CBC w/ auto diff 2022 023 [email or web address] [facility], [address], [place], [address], 3 10:58:26 Referral None recorded. Procedures None recorded. Surgeries None recorded. Imaging MAMMO, screening, bilateral 2022 023 [facility] (Mamm[facility]) , [address], [place], [address], 3 08:26:36 Medication Orders None recorded. Patient [...] with diabe jemima: <7.0 Not Available [facility] ([facility]) [address] [facility], [place], [address], 06/17/2020 07:07:46 06/16/1906/16/2020 lipid panel , serum HDL cholesterol 77 mg/dL >39 Not Available [facility] ([facility]) [address] [facility], [place], [address], 06/17/2020 07:07:46 06/16/19 21 06/16/2020 lipid panel , serum cholesterol, total 181 mg/dL 100-19 9 Not Available [facility] ([facility]) [address] [place], [address], 06/17/2020 07:07:46 06/16/1906/16/2020 lipid panel , serum triglyceride s 46 mg/dL 0-149 Not Available [facility] ([facility]) [address] [place], [address], 06/17/2020 07:07:46 06/16/19 21 06/16/2020 lipid panel , serum VLDL cholesterol minnie 9 mg/dL 5-40 Not Available [facility] ([facility]) [address] [place], [address], 06/17/2020 07:07:46 06/16/19 21 06/16/2020 lipid panel , serum LDL chol calc ([facility]) 95 mg/dL 0-99 Not Available [facility] ([facility]) [address] [place], [address], 06/17/2020 07:07:46 06/16/19 21 06/16/2020 lipid panel , serum comment: inpatient nursing aide Not Available [facility] ([facility]) [address] [place], [address], 06/17/2020 07:07:46 06/16/19 21 06/16/2020 lipid panel , serum T. chol/HDL ratio 2.4 ratio 0.0-4. 4 T. Chol/ HDL Ratio Men Women 1/2 Avg.R isk 3.4 3.3 Avg.R isk 5.0 4.4 2X Avg.R isk 9.6 7.1 3X Avg.R isk 23.4 11.0 Not Available [facility] ([facility]) [address] [place], [address], 06/17/2020 07:07:46 06/16/19 21 06/16/2020 CMP, serum or plasm a glucose 89 mg/dL 65-99 Not Available [facility] ([facility]) [address] [place], [address], 06/17/2020 07:07:46 06/16/19 21 06/16/2020 CMP, serum or plasm a BUN 12 mg/dL 6-20 Not Available [facility] ([facility]) [address] [place], [address], 06/17/2020 07:07:46 06/16/19 21 06/16/2020 CMP, serum or plasm a creatinine 0.71 mg/dL 0.57-1 .00 Not Available [facility] ([facility]) [address] [place], [address], 06/17/2020 07:07:46 06/16/19 21 06/16/2020 CMP, serum or plasm a eGFR if nonafricn AM 108 mL/mi n/1.7 3 >59 Not Available [facility] ([facility]) [address] [place], [address], 06/17/2020 07:07:46 06/16/19 21 06/16/2020 CMP, serum or plasm a eGFR if africn AM 124 mL/mi n/1.7 3 >59 Not Available [facility] ([facility]) [address] [place], [address], 06/17/2020 07:07:46 06/16/19 21 06/16/2020 CMP, serum or plasm a BUN/creatini ne ratio 17 9-23 Not Available [facility] ([facility]) [address] [place], [address], 06/17/2020 07:07:46 06/16/19 21 06/16/2020 CMP, serum or plasm a sodium 140 mmol/ L 134-14 4 Not Available [facility] ([facility]) [address] [place], [address], 06/17/2020 07:07:46 06/16/19 21 06/16/2020 CMP, serum or plasm a potassium 4.5 mmol/ L 3.5-5. 2 Not Available [facility] ([facility]) [address] [place], [address], 06/17/2020 07:07:46 06/16/19 21 06/16/2020 CMP, serum or plasm a chloride 101 mmol/ L 96-106 Not Available [facility] ([facility]) [address] [place], [address], 06/17/2020 07:07:46 06/16/19 21 06/16/2020 CMP, serum or plasm a carbon dioxide, total 24 mmol/ L 20-29 Not Available [facility] ([facility]) [address] [facility] [place], [address], 06/17/2020 07:07:46 06/16/1906/16/2020 CMP, serum or plasm a calcium 9.5 mg/dL 8.7-10 .2 Not Available [facility] ([facility]) [address] [place], [address], 06/17/2020 07:07:46 06/16/1906/16/2020 CMP, serum or plasm a protein, total 6.9 g/dL 6.0-8. 5 Not Available [facility] ([facility]) [address] [place], [address], 06/17/2020 07:07:46 06/16/1906/16/2020 CMP, serum or plasm a albumin 4.5 g/dL 3.8-4. 8 Not Available [facility] ([facility]) [address] [place], [address], 06/17/2020 07:07:46 06/16/19 21 06/16/2020 CMP, serum or plasm a globulin, total 2.4 g/dL 1.5-4. 5 Not Available [facility] ([facility]) [address] [place], [address], 06/17/2020 07:07:46 06/16/19 21 06/16/2020 CMP, serum or plasm a A/G ratio 1.9 1.2-2. 2 Not Available [facility] ([facility]) [address] [place], [address], 06/17/2020 07:07:46 06/16/19 21 06/16/2020 CMP, serum or plasm a bilirubin, total 0.5 mg/dL 0.0-1. 2 Not Available [facility] ([facility]) [address] [place], [address], 06/17/2020 07:07:46 06/16/19 21 06/16/2020 CMP, serum or plasm a alkaline phosphatase 55 IU/L 39-117 Not Available [facility] ([facility]) [address] [place], [address], 06/17/2020 07:07:46 06/16/19 21 06/16/2020 CMP, serum or plasm a AST (SGOT) 19 IU/L 0-40 Not Available [facility] ([facility]) [address] [place], [address], 06/17/2020 07:07:46 06/16/19 21 06/16/2020 CMP, serum or plasm a ALT (SGPT) 17 IU/L 0-32 Not Available [facility] ([facility]) [address] [place], [address], 06/17/2020 07:07:46 06/16/19 21 06/16/2020 CBC w/ auto diff RBC 4.54 x10e6 /uL 3.77-5 .28 Not Available [facility] ([facility]) [address] [place], [address], 06/17/2020 07:07:45 06/16/19 21 06/16/2020 CBC w/ auto diff WBC 4.8 x10e3 /uL 3.4-10 .8 Not Available [facility] ([facility]) [address] [place], [address], 06/17/2020 07:07:45 06/16/19 21 06/16/2020 CBC w/ auto diff hemoglobin 13.6 g/dL 11.1-1 5.9 Not Available [facility] ([facility]) [address] [place], [address], 06/17/2020 07:07:45 06/16/19 21 06/16/2020 CBC w/ auto diff hematocrit 39.2 % 34.0-4 6.6 Not Available [facility] ([facility]) [address] [place], [address], 06/17/2020 07:07:45 06/16/19 21 06/16/2020 CBC w/ auto diff MCV 86 fL 79-97 Not Available [facility] ([facility]) [address] [facility], [place], [address], 06/17/2020 07:07:45 06/16/19 21 06/16/2020 CBC w/ auto diff MCH 30.0 pg 26.6-3 3.0 Not Available [facility] ([facility]) [address] [facility], [place], [address], 06/17/2020 07:07:45 06/16/19 21 06/16/2020 CBC w/ auto diff MCHC 34.7 g/dL 31.5-3 5.7 Not Available [facility] ([facility]) [address] [place], [address], 06/17/2020 07:07:45 06/16/19 21 06/16/2020 CBC w/ auto diff RDW 11.8 % 11.7-1 5.4 Not Available [facility] ([facility]) [address] [place], [address], 06/17/2020 07:07:45 06/16/19 21 06/16/2020 CBC w/ auto diff platelets 214 x10e3 /uL 150-45 0 Not Available [facility] ([facility]) [address] [place], [address], 06/17/2020 07:07:45 06/16/19 21 06/16/2020 CBC w/ auto diff neutrophils 54 % not estab. Not Available [facility] ([facility]) [address] [facility], [place], [address], 06/17/2020 07:07:45 06/16/19 21 06/16/2020 CBC w/ auto diff lymphs 34 % not estab. Not Available [facility] ([facility]) [address] [facility], [place], [address], 06/17/2020 07:07:45 06/16/1906/16/2020 CBC w/ auto diff monocytes 9 % not estab. Not Available [facility] ([facility]) [address] [facility], [place], [address], 06/17/2020 07:07:45 06/16/19 21 06/16/2020 CBC w/ auto diff eos 2 % not estab. Not Available [facility] ([facility]) [address] [facility], [place], [address], 06/17/2020 07:07:45 06/16/1906/16/2020 CBC w/ auto diff basos 1 % not estab. Not Available [facility] ([facility]) [address] [facility], [place], [address], 06/17/2020 07:07:45 06/16/1906/16/2020 CBC w/ auto diff immature cells inpatient nursing aide Not Available [facility] ([facility]) [address] [facility], [place], [address], 06/17/2020 07:07:45 06/16/1906/16/2020 CBC w/ auto diff neutrophils (absolute) 2.6 x10e3 /uL 1.4-7. 0 Not Available [facility] ([facility]) [address] [facility], [place], [address], 06/17/2020 07:07:45 06/16/19 21 06/16/2020 CBC w/ auto diff lymphs (absolute) 1.6 x10e3 /uL 0.7-3. 1 Not Available [facility] ([facility]) [address] [place], [address], 06/17/2020 07:07:45 06/16/19 21 06/16/2020 CBC w/ auto diff monocytes(ab solute) 0.4 x10e3 /uL 0.1-0. 9 Not Available [facility] ([facility]) [address] [place], [address], 06/17/2020 07:07:45 06/16/19 21 06/16/2020 CBC w/ auto diff eos (absolute) 0.1 x10e3 /uL 0.0-0. 4 Not Available [facility] ([facility]) [address] [facility], [place], [address], 06/17/2020 07:07:45 06/16/19 21 06/16/2020 CBC w/ auto diff baso (absolute) 0.1 x10e3 /uL 0.0-0. 2 Not Available [facility] ([facility]) [address] [place], [address], 06/17/2020 07:07:45 06/16/19 21 06/16/2020 CBC w/ auto diff immature granulocytes 0 % not estab. Not Available [facility] ([facility]) [address] [place], [address], 06/17/2020 07:07:45 06/16/19 21 06/16/2020 CBC w/ auto diff immature grans (abs) 0.0 x10e3 /uL 0.0-0. 1 Not Available [facility] ([facility]) [address] [place], [address], 06/17/2020 07:07:45 03/1906/16/2020 CBC w/ auto diff NRBC inpatient nursing aide Not Available [facility] ([facility]) [address] [facility] [place], [address], 06/17/2020 07:07:45 06/16/19 21 06/16/2020 CBC w/ auto diff hematology comments: inpatient nursing aide Not Available [facility] ([facility]) [address] [facility], [place], [address], 06/17/2020 07:07:45 06/16/1906/16/2020 TSH + free T4, serum TSH 2.310 uIU/m L 0.450- 4.500 Not Available [facility] ([facility]) [address] [facility] [place], [address], 06/17/2020 07:07:45 06/16/1906/16/2020 TSH + free T4, serum T4,free(dire ct) 1.13 NG/dL 0.82-1 .77 Not Available [facility] ([facility]) [address] [facility] [place], [address], 06/17/2020 07:07:45 06/16/1906/16/2020 urina lysis , dipst ick, refle x micro appearance turbid clear abnormal Not Available [facility] ([facility]) [address] [place], [address], 06/17/2020 07:07:44 06/16/1906/16/2020 urina lysis , dipst ick, refle x micro specific gravity 1.021 1.005- 1.030 Not Available [facility] ([facility]) [address] [place], [address], 06/17/2020 07:07:44 06/16/1906/16/2020 urina lysis , dipst ick, refle x micro pH 7.0 5.0-7. 5 Not Available [facility] ([facility]) [address] [facility] [place], [address], 06/17/2020 07:07:44 06/16/1906/16/2020 urina lysis , dipst ick, refle x micro urine-color yellow yellow Not Available [facility] ([facility]) [address] [facility], [place], [address], 06/17/2020 07:07:44 06/16/1906/16/2020 urina lysis , dipst ick, refle x micro WBC esterase negati ve negati ve Not Available [facility] ([facility]) [address] [facility], [place], [address], 06/17/2020 07:07:44 06/16/1906/16/2020 urina lysis , dipst ick, refle x micro protein 1+ negati ve/tra ce abnormal Not Available [facility] ([facility]) [address] [place], [address], 06/17/2020 07:07:44 06/16/1906/16/2020 urina lysis , dipst ick, refle x micro glucose negati ve negati ve Not Available [facility] ([facility]) [address] [place], [address], 06/17/2020 07:07:44 06/16/1906/16/2020 urina lysis , dipst ick, refle x micro ketones negati ve negati ve Not Available [facility] ([facility]) [address] [place], [address], 06/17/2020 07:07:44 06/16/1906/16/2020 urina lysis , dipst ick, refle x micro occult blood 3+ negati ve abnormal Not Available [facility] ([facility]) [address] [place], [address], 06/17/2020 07:07:44 06/16/1906/16/2020 urina lysis , dipst ick, refle x micro bilirubin negati ve negati ve Not Available [facility] ([facility]) [address] [place], [address], 06/17/2020 07:07:44 06/16/1906/16/2020 urina lysis , dipst ick, refle x micro urobilinogen ,semi-qn 1.0 mg/dL 0.2-1. 0 Not Available [facility] ([facility]) [address] [place], [address], 06/17/2020 07:07:44 06/16/1906/16/2020 urina lysis , dipst ick, refle x micro nitrite, urine negati ve negati ve Not Available [facility] ([facility]) [address] [place], [address], 06/17/2020 07:07:44 06/16/1906/16/2020 urina lysis , dipst ick, refle x micro microscopic examination see below: Micro scopi c was indic ated and was perfo rmed. Not Available [facility] ([facility]) [address] [place], [address], 06/17/2020 07:07:44 06/16/1906/16/2020 urina lysis , dipst ick, refle x micro WBC 6-10 /hpf 0 - 5 abnormal Not Available [facility] ([facility]) [address] [place], [address], 06/17/2020 07:07:44 06/16/1906/16/2020 urina lysis , dipst ick, refle x micro RBC 3-10 /hpf 0 - 2 abnormal Not Available [facility] ([facility]) [address] [place], [address], 06/17/2020 07:07:44 06/16/19 21 06/16/2020 urina lysis , dipst ick, refle x micro epithelial cells (non renal) >10 /hpf 0 - 10 abnormal Not Available [facility] ([facility]) [address] [facility], [place], [address], 06/17/2020 07:07:44 06/16/19 21 06/16/2020 urina lysis , dipst ick, refle x micro epithelial cells (renal) inpatient nursing aide Not Available [facility] ([facility]) [address] [facility], [place], [address], 06/17/2020 07:07:44 06/16/19 21 06/16/2020 urina lysis , dipst ick, refle x micro casts inpatient nursing aide Not Available [facility] ([facility]) [address] [place], [address], 06/17/2020 07:07:44 06/16/19 21 06/16/2020 urina lysis , dipst ick, refle x micro cast type inpatient nursing aide Not Available [facility] ([facility]) [address] [place], [address], 06/17/2020 07:07:44 06/16/19 21 06/16/2020 urina lysis , dipst ick, refle x micro crystals inpatient nursing aide Not Available [facility] ([facility]) [address] [place], [address], 06/17/2020 07:07:44 06/16/19 21 06/16/2020 urina lysis , dipst ick, refle x micro crystal type inpatient nursing aide Not Available [facility] ([facility]) [address] [place], [address], 06/17/2020 07:07:44 06/16/19 21 06/16/2020 urina lysis , dipst ick, refle x micro mucus threads presen t not estab. Not Available [facility] ([facility]) [address] [facility], [place], [address], 06/17/2020 07:07:44 06/16/19 21 06/16/2020 urina lysis , dipst ick, refle x micro bacteria few none seen/f ew Not Available [facility] ([facility]) [address] [facility], [place], [address], 06/17/2020 07:07:44 06/16/19 21 06/16/2020 urina lysis , dipst ick, refle x micro yeast inpatient nursing aide Not Available [facility] ([facility]) [address] [facility], [place], [address], 06/17/2020 07:07:44 06/16/19 21 06/16/2020 urina lysis , dipst ick, refle x micro trichomonas inpatient nursing aide Not Available [facility] ([facility]) [address] [facility], [place], [address], 06/17/2020 07:07:44 06/16/19 21 06/16/2020 urina lysis , dipst ick, refle x micro comment inpatient nursing aide Not Available [facility] ([facility]) [address] [facility], [place], [address], 06/17/2020 07:07:44 06/16/19 21 06/17/2020 urina lysis , dipst ick, refle x micro creatinine, urine 212.4 mg/dL not estab. Not Available [facility] ([facility]) [address] [facility], [place], [address], 06/17/2020 07:07:44 06/16/19 21 06/17/2020 urina lysis , dipst ick, refle x micro protein,tota l,urine 21.1 mg/dL not estab. Not Available [facility] ([facility]) [address] [facility], [place], [address], 06/17/2020 07:07:44 06/16/19 21 06/17/2020 urina lysis , dipst ick, refle x micro protein/crea t ratio 99 mg/g_ creat 0-200 Not Available [facility] ([facility]) [address] [facility], [place], [address], 06/17/2020 07:07:44 08/30/19 21 08/31/2020 cultu re, urine urine culture, routine final report abnormal Not Available [facility] ([facility]) [address] [facility], [place], [address], 08/31/2020 03:07:45 08/30/19 21 08/31/2020 cultu re, [...] p A). (CLSI ) Not Available [facility] ([facility]) [address] [facility], [place], [address], 08/31/2020 03:07:45 08/30/19 21 08/31/2020 cultu re, urine result 2 commen t Mixed uroge nital renzo Less than 10,00 0 colon ies/m L Not Available [facility] ([facility]) [address] [facility], [place], [address], 08/31/2020 03:07:45 08/30/1908/30/2020 urina lysis , compl ete specific gravity 1.022 1.005- 1.030 Not Available [facility] ([facility]) [address] [place], [address], 08/31/2020 03:07:44 08/30/19 21 08/30/2020 urina lysis , compl ete pH 7.0 5.0-7. 5 Not Available [facility] ([facility]) [address] [place], [address], 08/31/2020 03:07:44 08/30/1908/30/2020 urina lysis , compl ete urine-color yellow yellow Not Available [facility] ([facility]) [address] [place], [address], 08/31/2020 03:07:44 08/30/1908/30/2020 urina lysis , compl ete appearance clear clear Not Available [facility] ([facility]) [address] [place], [address], 08/31/2020 03:07:44 08/30/1908/30/2020 urina lysis , compl ete WBC esterase negati ve negati ve Not Available [facility] ([facility]) [address] [place], [address], 08/31/2020 03:07:44 08/30/1908/30/2020 urina lysis , compl ete protein negati ve negati ve/tra ce Not Available [facility] ([facility]) [address] [place], [address], 08/31/2020 03:07:44 08/30/1908/30/2020 urina lysis , compl ete glucose negati ve negati ve Not Available [facility] ([facility]) [address] [place], [address], 08/31/2020 03:07:44 08/30/19 21 08/30/2020 urina lysis , compl ete ketones negati ve negati ve Not Available [facility] ([facility]) [address] [place], [address], 08/31/2020 03:07:44 08/30/19 21 08/30/2020 urina lysis , compl ete occult blood negati ve negati ve Not Available [facility] ([facility]) [address] [place], [address], 08/31/2020 03:07:44 08/30/19 21 08/30/2020 urina lysis , compl ete bilirubin negati ve negati ve Not Available [facility] ([facility]) [address] [place], [address], 08/31/2020 03:07:44 08/30/19 21 08/30/2020 urina lysis , compl ete urobilinogen ,semi-qn 0.2 mg/dL 0.2-1. 0 Not Available [facility] ([facility]) [address] [place], [address], 08/31/2020 03:07:44 08/30/19 21 08/30/2020 urina lysis , compl ete nitrite, urine negati ve negati ve Not Available [facility] ([facility]) [address] [place], [address], 08/31/2020 03:07:44 08/30/19 21 08/30/2020 urina lysis , compl ete microscopic examination commen t Micro scopi c follo ws if indic ated. Not Available [facility] ([facility]) [address] [place], [address], 08/31/2020 03:07:44 08/30/19 21 08/30/2020 urina lysis , compl ete microscopic examination see below: Micro scopi c was indic ated and was perfo rmed. Not Available [facility] ([facility]) [address] [facility], [place], [address], 08/31/2020 03:07:44 08/30/19 21 08/30/2020 urina lysis , compl ete WBC none seen /hpf 0 - 5 Not Available [facility] ([facility]) [address] [facility], [place], [address], 08/31/2020 03:07:44 08/30/19 21 08/30/2020 urina lysis , compl ete RBC 0-2 /hpf 0 - 2 Not Available [facility] ([facility]) [address] [facility], [place], [address], 08/31/2020 03:07:44 08/30/19 21 08/30/2020 urina lysis , compl ete epithelial cells (non renal) 0-10 /hpf 0 - 10 Not Available [facility] ([facility]) [address] [facility], [place], [address], 08/31/2020 03:07:44 08/30/19 21 08/30/2020 urina lysis , compl ete epithelial cells (renal) inpatient nursing aide Not Available [facility] ([facility]) [address] [facility], [place], [address], 08/31/2020 03:07:44 08/30/19 21 08/30/2020 urina lysis , compl ete casts none seen /lpf none seen Not Available [facility] ([facility]) [address] [facility] [facility], [place], [address], 08/31/2020 03:07:44 08/30/19 21 08/30/2020 urina lysis , compl ete cast type inpatient nursing aide Not Available [facility] ([facility]) [address] [facility], [place], [address], 08/31/2020 03:07:44 08/30/19 21 08/30/2020 urina lysis , compl ete crystals inpatient nursing aide Not Available [facility] ([facility]) [address] [place], [address], 08/31/2020 03:07:44 08/30/19 21 08/30/2020 urina lysis , compl ete crystal type inpatient nursing aide Not Available [facility] ([facility]) [address] [place], [address], 08/31/2020 03:07:44 08/30/19 21 08/30/2020 urina lysis , compl ete mucus threads inpatient nursing aide Not Available [facility] ([facility]) [address] [place], [address], 08/31/2020 03:07:44 08/30/19 21 08/30/2020 urina lysis , compl ete bacteria few none seen/f ew Not Available [facility] ([facility]) [address] [place], [address], 08/31/2020 03:07:44 08/30/19 21 08/30/2020 urina lysis , compl ete yeast inpatient nursing aide Not Available [facility] ([facility]) [address] [place], [address], 08/31/2020 03:07:44 08/30/19 21 08/30/2020 urina lysis , compl ete trichomonas inpatient nursing aide Not Available [facility] ([facility]) [address] [place], [address], 08/31/2020 03:07:44 08/30/19 21 08/30/2020 urina lysis , compl ete comment inpatient nursing aide Not Available [facility] ([facility]) [address] [place], [address], 08/31/2020 03:07:44 08/24/19 22 08/24/2021 THYRO ID PEROX IDASE (TPO) AB thyroid peroxidase (tpo) Ab 11 IU/mL 0-34 Not Available [facility] ([facility]) [address] [facility], [place], [address], 08/28/2021 03:07:41 08/24/19 22 08/27/2021 THYRO GLOBU MIRNA ANTIB SONIA thyroglobuli n antibody <1.0 IU/mL 0.0-0. 9 Thyro globu mirna Antib sonia measu red by Beckm an Coult er Metho dolog y Not Available [facility] ([facility]) [address] [facility], [place], [address], 08/28/2021 03:07:40 08/24/19 22 08/24/2021 VITAM IN [...] Endoc rine Socie ty went on to [facility] er defin e vitam in D insuf ficie ncy as a level betwe en 21 and 29 ng/mL (2). 1. IOM (Inst itute of Medic ine). 2009. Dieta ry refer ence intak es for calci um and D. Carolin brown [place]: [facility] . 2. Nguyễn luna MF, Tati arguello [place], Redd off-F abbey i WREN, et al. Evalu ation , treat ment, and preve ntion of vitam in D defic iency : an Endoc rine Socie ty clini minnie pract ice guide line. JCEM. 2010; 96(7) :1911 -30. Not Available [facility] ([facility]) [address] [facility], [place], [address], 08/28/2021 03:07:40 08/24/19 22 08/24/2021 HEMOG LOBIN A1C hemoglobin A1C 5.0 % 4.8-5. 6 Predi abete s: 5.7 - 6.4 Diabe jemima: >6.4 Glyce snadra contr ol for adult s with diabe jemima: <7.0 Not Available [facility] ([facility]) [address] [place], [address], 08/28/2021 03:07:39 08/24/19 22 08/24/2021 VITAM IN B12 AND FOLAT E vitamin B12 347 pg/mL 232-12 45 Not Available [facility] ([facility]) [address] [facility], [place], [address], 08/28/2021 03:07:39 08/24/19 22 08/24/2021 VITAM IN B12 AND FOLAT E folate (folic acid), serum 2.8 NG/mL >3.0 below low normal A serum folat e kathia ntrat ion of less than 3.1 ng/mL is consi dered to repre sent clini minnie defic iency . Not Available [facility] ([facility]) [address] [place], [address], 08/28/2021 03:07:39 08/24/19 22 08/24/2021 LIPID PANEL W/ CHOL/ HDL RATIO cholesterol, total 174 mg/dL 100-19 9 Not Available [facility] ([facility]) [address] [place], [address], 08/28/2021 03:07:39 08/24/19 22 08/24/2021 LIPID PANEL W/ CHOL/ HDL RATIO triglyceride s 38 mg/dL 0-149 Not Available [facility] ([facility]) [address] [place], [address], 08/28/2021 03:07:39 08/24/19 22 08/24/2021 LIPID PANEL W/ CHOL/ HDL RATIO HDL cholesterol 71 mg/dL >39 Not Available [facility] ([facility]) [address] [place], [address], 08/28/2021 03:07:39 08/24/19 22 08/24/2021 LIPID PANEL W/ CHOL/ HDL RATIO VLDL cholesterol minnie 8 mg/dL 5-40 Not Available [facility] ([facility]) [address] [place], [address], 08/28/2021 03:07:39 08/24/19 22 08/24/2021 LIPID PANEL W/ CHOL/ HDL RATIO LDL chol calc ([facility]) 95 mg/dL 0-99 Not Available [facility] ([facility]) [address] [place], [address], 08/28/2021 03:07:39 08/24/19 22 08/24/2021 LIPID PANEL W/ CHOL/ HDL RATIO comment: inpatient nursing aide Not Available [facility] ([facility]) [address] [place], [address], 08/28/2021 03:07:39 08/24/19 22 08/24/2021 LIPID PANEL W/ CHOL/ HDL RATIO T. chol/HDL ratio 2.5 ratio 0.0-4. 4 T. Chol/ HDL Ratio Men Women 1/2 Avg.R isk 3.4 3.3 Avg.R isk 5.0 4.4 2X Avg.R isk 9.6 7.1 3X Avg.R isk 23.4 11.0 Not Available [facility] ([facility]) [address] [place], [address], 08/28/2021 03:07:39 08/24/19 22 08/24/2021 COMP. METAB OLIC PANEL (14) glucose 84 mg/dL 65-99 Not Available [facility] ([facility]) [address] [place], [address], 08/28/2021 03:07:38 08/24/19 22 08/24/2021 COMP. METAB OLIC PANEL (14) BUN 14 mg/dL 6-24 Not Available [facility] ([facility]) [address] [place], [address], 08/28/2021 03:07:38 08/24/19 22 08/24/2021 COMP. METAB OLIC PANEL (14) creatinine 0.66 mg/dL 0.57-1 .00 Not Available [facility] ([facility]) [address] [place], [address], 08/28/2021 03:07:38 08/24/19 22 08/24/2021 COMP. METAB OLIC PANEL (14) eGFR 114 mL/mi n/1.7 3 >59 Not Available [facility] ([facility]) [address] [place], [address], 08/28/2021 03:07:38 08/24/19 22 08/24/2021 COMP. METAB OLIC PANEL (14) BUN/creatini ne ratio 21 9-23 Not Available [facility] ([facility]) [address] [place], [address], 08/28/2021 03:07:38 08/24/19 22 08/24/2021 COMP. METAB OLIC PANEL (14) sodium 139 mmol/ L 134-14 4 Not Available [facility] ([facility]) [address] [place], [address], 08/28/2021 03:07:38 08/24/19 22 08/24/2021 COMP. METAB OLIC PANEL (14) potassium 4.7 mmol/ L 3.5-5. 2 Not Available [facility] ([facility]) [address] [place], [address], 08/28/2021 03:07:38 08/24/19 22 08/24/2021 COMP. METAB OLIC PANEL (14) chloride 103 mmol/ L 96-106 Not Available [facility] ([facility]) [address] [facility] [place], [address], 08/28/2021 03:07:38 08/24/19 22 08/24/2021 COMP. METAB OLIC PANEL (14) carbon dioxide, total 22 mmol/ L Not Available [facility] ([facility]) [address] [place], [address], 08/28/2021 03:07:38 08/24/19 22 08/24/2021 COMP. METAB OLIC PANEL (14) calcium 9.5 mg/dL 8.7-10 .2 Not Available [facility] ([facility]) [address] [place], [address], 08/28/2021 03:07:38 08/24/19 22 08/24/2021 COMP. METAB OLIC PANEL (14) protein, total 6.3 g/dL 6.0-8. 5 Not Available [facility] ([facility]) [address] [place], [address], 08/28/2021 03:07:38 08/24/19 22 08/24/2021 COMP. METAB OLIC PANEL (14) albumin 4.5 g/dL 3.8-4. 8 Not Available [facility] ([facility]) [address] [place], [address], 08/28/2021 03:07:38 08/24/19 22 08/24/2021 COMP. METAB OLIC PANEL (14) globulin, total 1.8 g/dL 1.5-4. 5 Not Available [facility] ([facility]) [address] [place], [address], 08/28/2021 03:07:38 08/24/19 22 08/24/2021 COMP. METAB OLIC PANEL (14) A/G ratio 2.5 1.2-2. 2 above high normal Not Available [facility] ([facility]) [address] [place], [address], 08/28/2021 03:07:38 08/24/19 22 08/24/2021 COMP. METAB OLIC PANEL (14) bilirubin, total 0.4 mg/dL 0.0-1. 2 Not Available [facility] ([facility]) [address] [facility], [place], [address], 08/28/2021 03:07:38 08/24/19 22 08/24/2021 COMP. METAB OLIC PANEL (14) alkaline phosphatase 51 IU/L 44-121 Not Available [facility] ([facility]) [address] [facility], [place], [address], 08/28/2021 03:07:38 08/24/19 22 08/24/2021 COMP. METAB OLIC PANEL (14) AST (SGOT) 20 IU/L 0-40 Not Available [facility] ([facility]) [address] [facility], [place], [address], 08/28/2021 03:07:38 08/24/19 22 08/24/2021 COMP. METAB OLIC PANEL (14) ALT (SGPT) 11 IU/L 0-32 Not Available [facility] ([facility]) [address] [facility], [place], [address], 08/28/2021 03:07:38 08/24/19 22 08/24/2021 CBC WITH DIFFE RENTI AL/PL ATELE T WBC 4.8 x10e3 /uL 3.4-10 .8 Not Available [facility] ([facility]) [address] [facility], [place], [address], 08/28/2021 03:07:38 08/24/19 22 08/24/2021 CBC WITH DIFFE RENTI AL/PL ATELE T RBC 4.43 x10e6 /uL 3.77-5 .28 Not Available [facility] ([facility]) [address] [facility], [place], [address], 08/28/2021 03:07:38 08/24/19 22 08/24/2021 CBC WITH DIFFE RENTI AL/PL ATELE T hemoglobin 12.7 g/dL 11.1-1 5.9 Not Available [facility] ([facility]) [address] [place], [address], 08/28/2021 03:07:38 08/24/19 22 08/24/2021 CBC WITH DIFFE RENTI AL/PL ATELE T hematocrit 39.1 % 34.0-4 6.6 Not Available [facility] ([facility]) [address] [place], [address], 08/28/2021 03:07:38 08/24/19 22 08/24/2021 CBC WITH DIFFE RENTI AL/PL ATELE T RDW 11.9 % 11.7-1 5.4 Not Available [facility] ([facility]) [address] [place], [address], 08/28/2021 03:07:38 08/24/19 22 08/24/2021 CBC WITH DIFFE RENTI AL/PL ATELE T MCV 88 fL 79-97 Not Available [facility] ([facility]) [address] [place], [address], 08/28/2021 03:07:38 08/24/19 22 08/24/2021 CBC WITH DIFFE RENTI AL/PL ATELE T MCH 28.7 pg 26.6-3 3.0 Not Available [facility] ([facility]) [address] [place], [address], 08/28/2021 03:07:38 08/24/19 22 08/24/2021 CBC WITH DIFFE RENTI AL/PL ATELE T MCHC 32.5 g/dL 31.5-3 5.7 Not Available [facility] ([facility]) [address] [place], [address], 08/28/2021 03:07:38 08/24/19 22 08/24/2021 CBC WITH DIFFE RENTI AL/PL ATELE T platelets 202 x10e3 /uL 150-45 0 Not Available [facility] ([facility]) [address] [facility], [place], [address], 08/28/2021 03:07:38 08/24/19 22 08/24/2021 CBC WITH DIFFE RENTI AL/PL ATELE T neutrophils 57 % not estab. Not Available [facility] ([facility]) [address] [facility], [place], [address], 08/28/2021 03:07:38 08/24/19 22 08/24/2021 CBC WITH DIFFE RENTI AL/PL ATELE T lymphs 34 % not estab. Not Available [facility] ([facility]) [address] [place], [address], 08/28/2021 03:07:38 08/24/19 22 08/24/2021 CBC WITH DIFFE RENTI AL/PL ATELE T monocytes 7 % not estab. Not Available [facility] ([facility]) [address] [place], [address], 08/28/2021 03:07:38 08/24/19 22 08/24/2021 CBC WITH DIFFE RENTI AL/PL ATELE T eos 1 % not estab. Not Available [facility] ([facility]) [address] [place], [address], 08/28/2021 03:07:38 08/24/19 22 08/24/2021 CBC WITH DIFFE RENTI AL/PL ATELE T basos 1 % not estab. Not Available [facility] ([facility]) [address] [place], [address], 08/28/2021 03:07:38 08/24/19 22 08/24/2021 CBC WITH DIFFE RENTI AL/PL ATELE T immature cells inpatient nursing aide Not Available [facility] ([facility]) [address] [place], [address], 08/28/2021 03:07:38 08/24/19 22 08/24/2021 CBC WITH DIFFE RENTI AL/PL ATELE T neutrophils (absolute) 2.7 x10e3 /uL 1.4-7. 0 Not Available [facility] ([facility]) [address] [facility], [place], [address], 08/28/2021 03:07:38 08/24/19 22 08/24/2021 CBC WITH DIFFE RENTI AL/PL ATELE T lymphs (absolute) 1.6 x10e3 /uL 0.7-3. 1 Not Available [facility] ([facility]) [address] [place], [address], 08/28/2021 03:07:38 08/24/19 22 08/24/2021 CBC WITH DIFFE RENTI AL/PL ATELE T monocytes(ab solute) 0.4 x10e3 /uL 0.1-0. 9 Not Available [facility] ([facility]) [address] [place], [address], 08/28/2021 03:07:38 08/24/19 22 08/24/2021 CBC WITH DIFFE RENTI AL/PL ATELE T eos (absolute) 0.0 x10e3 /uL 0.0-0. 4 Not Available [facility] ([facility]) [address] [place], [address], 08/28/2021 03:07:38 08/24/19 22 08/24/2021 CBC WITH DIFFE RENTI AL/PL ATELE T baso (absolute) 0.0 x10e3 /uL 0.0-0. 2 Not Available [facility] ([facility]) [address] [place], [address], 08/28/2021 03:07:38 08/24/19 22 08/24/2021 CBC WITH DIFFE RENTI AL/PL ATELE T immature granulocytes 0 % not estab. Not Available [facility] ([facility]) [address] [facility], [place], [address], 08/28/2021 03:07:38 08/24/19 22 08/24/2021 CBC WITH DIFFE RENTI AL/PL ATELE T immature grans (abs) 0.0 x10e3 /uL 0.0-0. 1 Not Available [facility] ([facility]) [address] [facility], [place], [address], 08/28/2021 03:07:38 08/24/19 22 08/24/2021 CBC WITH DIFFE RENTI AL/PL ATELE T NRBC inpatient nursing aide Not Available [facility] ([facility]) [address] [place], [address], 08/28/2021 03:07:38 08/24/19 22 08/24/2021 CBC WITH DIFFE RENTI AL/PL ATELE T hematology comments: inpatient nursing aide Not Available [facility] ([facility]) [address] [facility], [place], [address], 08/28/2021 03:07:38 08/24/19 22 08/24/2021 TSH+F REE T4 TSH 1.750 uIU/m L 0.450- 4.500 Not Available [facility] ([facility]) [address] [place], [address], 08/28/2021 03:07:37 08/24/19 22 08/24/2021 TSH+F REE T4 T4,free(dire ct) 1.41 NG/dL 0.82-1 .77 Not Available [facility] ([facility]) [address] [place], [address], 08/28/2021 03:07:37 08/24/19 22 08/24/2021 FE+TI BC+FE R iron bind.cap.(TI BC) 260 ug/dL 250-45 0 Not Available [facility] ([facility]) [address] [place], [address], 08/28/2021 03:07:36 08/24/19 22 08/24/2021 FE+TI BC+FE R UIBC 194 ug/dL 131-42 5 Not Available [facility] ([facility]) [address] [place], [address], 08/28/2021 03:07:36 08/24/19 22 08/24/2021 FE+TI BC+FE R iron 66 ug/dL 27-159 Not Available [facility] ([facility]) [address] [place], [address], 08/28/2021 03:07:36 08/24/19 22 08/24/2021 FE+TI BC+FE R iron saturation 25 % 15-55 Not Available [facility] ([facility]) [address] [place], [address], 08/28/2021 03:07:36 08/24/19 22 08/24/2021 FE+TI BC+FE R ferritin 35 NG/mL 15-150 Not Available [facility] ([facility]) [address] [place], [address], 08/28/2021 03:07:36 09/14/19 22 09/15/2021 URINE CULTU RE, LAMBERTOI NE urine culture, routine final report Not Available [facility] ([facility]) [address] [place], [address], 09/15/2021 03:06:11 09/14/19 22 09/15/2021 URINE CULTU RE, ROUTI NE result 1 commen t Cultu re shows less than 10,00 0 colon y formi ng units of bacte jill per [place] liter of urine . This colon y count is not gener ally consi dered to be clini angi signi fican t. Not Available [facility] ([facility]) [address] [place], [address], 09/15/2021 03:06:11 09/14/19 22 09/14/2021 URINA LYSIS , COMPL ETE appearance clear clear Not Available [facility] ([facility]) [address] [facility] [place], [address], 09/15/2021 03:06:09 09/14/19 22 09/14/2021 URINA LYSIS , COMPL ETE trichomonas inpatient nursing aide Not Available [facility] ([facility]) [address] [facility] [place], [address], 09/15/2021 03:06:09 09/14/19 22 09/14/2021 URINA LYSIS , COMPL ETE comment inpatient nursing aide Not Available [facility] ([facility]) [address] [facility] [place], [address], 09/15/2021 03:06:09 09/14/19 22 09/14/2021 URINA LYSIS , COMPL ETE specific gravity 1.007 1.005- 1.030 Not Available [facility] ([facility]) [address] [facility] [place], [address], 09/15/2021 03:06:09 09/14/19 22 09/14/2021 URINA LYSIS , COMPL ETE pH 7.0 5.0-7. 5 Not Available [facility] ([facility]) [address] [facility] [place], [address], 09/15/2021 03:06:09 09/14/19 22 09/14/2021 URINA LYSIS , COMPL ETE urine-color yellow yellow Not Available [facility] ([facility]) [address] [facility] [place], [address], 09/15/2021 03:06:09 09/14/19 22 09/14/2021 URINA LYSIS , COMPL ETE WBC esterase negati ve negati ve Not Available [facility] ([facility]) [address] [place], [address], 09/15/2021 03:06:09 09/14/19 22 09/14/2021 URINA LYSIS , COMPL ETE protein negati ve negati ve/tra ce Not Available [facility] ([facility]) [address] [facility], [place], [address], 09/15/2021 03:06:09 09/14/19 22 09/14/2021 URINA LYSIS , COMPL ETE glucose negati ve negati ve Not Available [facility] ([facility]) [address] [place], [address], 09/15/2021 03:06:09 09/14/19 22 09/14/2021 URINA LYSIS , COMPL ETE ketones negati ve negati ve Not Available [facility] ([facility]) [address] [place], [address], 09/15/2021 03:06:09 09/14/19 22 09/14/2021 URINA LYSIS , COMPL ETE occult blood negati ve negati ve Not Available [facility] ([facility]) [address] [place], [address], 09/15/2021 03:06:09 09/14/19 22 09/14/2021 URINA LYSIS , COMPL ETE bilirubin negati ve negati ve Not Available [facility] ([facility]) [address] [place], [address], 09/15/2021 03:06:09 09/14/19 22 09/14/2021 URINA LYSIS , COMPL ETE urobilinogen ,semi-qn 0.2 mg/dL 0.2-1. 0 Not Available [facility] ([facility]) [address] [place], [address], 09/15/2021 03:06:09 09/14/19 22 09/14/2021 URINA LYSIS , COMPL ETE nitrite, urine negati ve negati ve Not Available [facility] ([facility]) [address] [place], [address], 09/15/2021 03:06:09 09/14/19 22 09/14/2021 URINA LYSIS , COMPL ETE microscopic examination commen t Micro scopi c follo ws if indic ated. Not Available [facility] ([facility]) [address] [place], [address], 09/15/2021 03:06:09 09/14/19 22 09/14/2021 URINA LYSIS , COMPL ETE microscopic examination see below: Micro scopi c was indic ated and was perfo rmed. Not Available [facility] ([facility]) [address] [facility], [place], [address], 09/15/2021 03:06:09 09/14/19 22 09/14/2021 URINA LYSIS , COMPL ETE WBC none seen /hpf 0 - 5 Not Available [facility] ([facility]) [address] [place], [address], 09/15/2021 03:06:09 09/14/19 22 09/14/2021 URINA LYSIS , COMPL ETE RBC none seen /hpf 0 - 2 Not Available [facility] ([facility]) [address] [place], [address], 09/15/2021 03:06:09 09/14/19 22 09/14/2021 URINA LYSIS , COMPL ETE epithelial cells (non renal) 0-10 /hpf 0 - 10 Not Available [facility] ([facility]) [address] [place], [address], 09/15/2021 03:06:09 09/14/19 22 09/14/2021 URINA LYSIS , COMPL ETE epithelial cells (renal) inpatient nursing aide Not Available [facility] ([facility]) [address] [place], [address], 09/15/2021 03:06:09 09/14/19 22 09/14/2021 URINA LYSIS , COMPL ETE casts none seen /lpf none seen Not Available [facility] ([facility]) [address], [place], [address], 09/15/2021 03:06:09 09/14/19 22 09/14/2021 URINA LYSIS , COMPL ETE cast type inpatient nursing aide Not Available [facility] ([facility]) [address], [place], [address], 09/15/2021 03:06:09 09/14/19 22 09/14/2021 URINA LYSIS , COMPL ETE crystals inpatient nursing aide Not Available [facility] ([facility]) [address], [place], [address], 09/15/2021 03:06:09 09/14/19 22 09/14/2021 URINA LYSIS , COMPL ETE crystal type inpatient nursing aide Not Available [facility] ([facility]) [address], [place], [address], 09/15/2021 03:06:09 09/14/19 22 09/14/2021 URINA LYSIS , COMPL ETE mucus threads inpatient nursing aide Not Available [facility] ([facility]) [address], [place], [address], 09/15/2021 03:06:09 09/14/19 22 09/14/2021 URINA LYSIS , COMPL ETE bacteria none seen none seen/f ew Not Available [facility] ([facility]) [address], [place], [address], 09/15/2021 03:06:09 09/14/19 22 09/14/2021 URINA LYSIS , COMPL ETE yeast inpatient nursing aide Not Available [facility] ([facility]) [address], [place], [address], 09/15/2021 03:06:09 03/06/20 22 03/06/2022 rapid flu (A+B) Flu A positi ve Not Available [facility] [place] [address], [place], [address], 03/06/2022 15:13:20 03/06/20 22 03/06/2022 rapid flu (A+B) Flu B negati ve Not Available [facility] [place] [address], [place], [address], 03/06/2022 15:13:20 09/20/19 21 09/18/2020 MAMMO , marni huffg, bilat eral No observ ation record ed. MIGRATION. [address] [place] [address] [address] [facility], [place], [address], 05/28/2022 02:59:32 10/13/19 21 09/03/2020 colon oscop y proce dure (PROC ) No observ ation record ed. MIGRATION. [address] [place] [address] [address] [facility], [place], [address], 05/28/2022 02:59:32 11/02/19 21 11/01/2020 US, abdom en, compl ete No observ ation record ed. MIGRATION. [address] [place] [address] (Imaging) [address] [place] [address] [address] [facility], [place], [address], 05/28/2022 02:59:32 11/10/19 21 11/08/2020 XR, ribs, unila teral No observ ation record ed. MIGRATION. [address] [place] [address] Imaging [address], [place], [address], 05/28/2022 02:59:32 09/25/19 22 09/23/2021 MAMMO , fredie abbie, digit al, bilat eral No observ ation record ed. MIGRATION. [id number], [place], [address], 05/28/2022 02:59:32 09/17/19 23 09/15/2022 marni DE PAZ, mikayla verduzco No observ ation record ed. [email or web address] [facility] [address], [place], [address], 11/05/2022 16:40:29 Result Notes None recorded. Problems Name Problem SNOMED Code Status Onset Date Resolution Date Notes Provider Name and Address Organization Details Recorded Time Lower urinary tract symptoms 303759748 Active still happens after menstral cycle Not Available [facility] 3 02:51:06 Acute sinusitis 03832008 Active 2021 Not Available [facility] 3 02:51:06 Occult blood detected in feces 08830055 Active 2021 Not Available [facility] 3 02:51:07 Fatigue 65950323 Active 2021 Not Available [facility] 3 02:51:07 Altered bowel function 90469188 Active 2021 Not Available [facility] 3 02:51:07 Acute urinary tract infection 001498185 Active 2021 Not Available [facility] 3 02:51:06 Fever 426410084 Active 2021 Not Available [facility] 3 02:51:06 Influenza caused by Influenza A virus 496747927 Active 2021 Not Available [facility] 3 02:51:06 Eruption 549298301 Active 2022 [facility] [address], [place], [address] , [facility] [employer] 3 12:58:21 Genital lichen planus 551685321 Active 2022 [facility] [address], [place], [address] , [facility] 3 10:58:15 Bee sting 312222667 Active 2022 JO Church [address] [facility] [facility] [address], [place], [address] , [facility] [employer] (acquired by [employer] in 2014) 3 13:53:56 Problem Notes None recorded. Procedures Surgical History Date Name Laterality Status Provider Name and Address Organization Details Recorded Time 09/04/19 21 Date of Last Colonoscopy completed Not Available [facility] 05/28/2022 02:44:49 09/04/19 21 Colonoscopy completed Not Available [facility] 05/29/19 02:44:54 03/30/19 14 Polyp Removal completed Not Available [facility] 2022 02:44:54 03/30/19 01 excision of ganglion cyst completed Not Available [facility] 05/28/2022 02:44:54 03/30/18 92 tonsilectomy/ad enoids completed Not Available [facility] 05/28/2022 02:44:54 Imaging Results None recorded. Procedure Notes None recorded. Medical Equipment None Reported. Allergies Allergen ID Allergen Name Allergen Category Reaction Reaction Severity Criticality Documentation Date Start Date Code Code System Note Provider Name and Address Organization Details Recorded Time 4556 clindamyc in Not available rash Not available Not available 05/28/2022 2582 RxNorm Not Available [facility] 3 02:59:02 4557 Bactrim medicatio n hives Not available Not available 05/28/2022 84024 9 RxNorm Not Available [facility] 3 02:59:02 Medications Name Sig Start Date [...] Not Available Not Available Not Available Fluzone 5293-8885 45 mcg (15 mcg x 3)/0.5 mL intramuscul ar suspension active Not Available Not Available N ot Available ID NOW COVID-19 Test Kit DIRECTED 11/08 completed Not Available Not Available Not Available COVID-19 test specimen collection USE DIRECTED 11/08 completed Not Available Not Available Not Available Vitals Date Recorded Body mass index (BMI) Body height Oxygen saturation Heart rate Respiratory rate Body temperature Body weight Systolic And Diastolic Provider Name and Address Organization Details Last Updated DateTime 1 26.3 kg/m2 167.64 cm 98 % 69 /min 16 /min 97.3 [degF] 69643.5 6 g 118/78 mm[Hg] Not Available [facility] 3 02:47:10 Date Recorded Body mass index (BMI) Body height Oxygen saturation Heart rate Respiratory rate Body temperature Body weight Systolic And Diastolic Provider Name and Address Organization Details Last Updated DateTime 2 25.7 kg/m2 167.64 cm 98 % 74 /min 16 /min 98.1 [degF] 24625.1 9 g 110/68 mm[Hg] Not Available [facility] 3 02:47:10 Date Recorded Body height Body temperature Body mass index (BMI) Body weight Respiratory rate Oxygen saturation Heart rate Systolic And Diastolic Provider Name and Address Organization Details Last Updated DateTime 3 167.64 cm 97.8 [degF] 26.3 kg/m2 14230.5 6 g 16 /min 98 % 72 /min 122/70 mm[Hg] ЕКАТЕРИНА Edwards [place] [facility] [place] [employer] [facility] 3 10:36:06 Date Recorded Body mass index (BMI) Body height Oxygen saturation Heart rate Body temperature Body weight Systolic And Diastolic Provider Name and Address Organization Details Last Updated DateTime 1 26.2 kg/m2 167.64 cm 98 % 72 /min 98 [degF] 28269.4 g 110/70 mm[Hg] Not Available [facility] 3 02:47:10 Date Recorded Body mass index (BMI) Body height Oxygen saturation Heart rate Body temperature Body weight Systolic And Diastolic Provider Name and Address Organization Details Last Updated DateTime 2 25.8 kg/m2 167.64 cm 98 % 75 /min 97.3 [degF] 76502.7 8 g 114/70 mm[Hg] Not Available [facility] 02:47:10 Social History Question Answer Notes LastModified by [employer] Details LastModified Time Tobacco Smoking Status Smoker, Current Status Unknown Not Available [facility] 05/28/2022 02:35:38 What Is Your Level Of Caffeine Consumption? Moderate [id number] Information not available 05/28/2022 How Much Tobacco Do You Chew? None [id number] Information not available 05/28/2022 In The 14 Days Before Symptom Onset, Have You Had Close Contact With A Laboratory-confirm ed COVID-19 While That Case Was Ill? No [id number] Information not available 05/28/2022 In The 14 Days Before Symptom Onset, Have You Had Close Contact With A Person Who Is Under Investigation For COVID-19 While That Person Was Ill? No [id number] Information not available 05/28/2022 What Type Of Diet Are You Following? REGULAR [id number] Information not available 05/28/2022 Which Illicit Or Recreational Drugs Have You Used? None [id number] Information not available 05/28/2022 Are There Any Guns Present In Your Home? Yes [id number] Information not available 05/28/2022 Sex: Unknown Functional Status Question Answer Note LastModified by [employer] Details LastModified Time What is your level of alcohol consumption? 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 Moderate [id number] 26 Information not available 05/28/2022 Mental Status None recorded. Family History Relationship Description Onset Age of this Age Resolved Age Notes LastModified by Organization Details LastModified Time Father Diabetes mellitus [id number] Not available 05/28/2022 02:44:57 Father Hypertensive disorder [id number] Not available 05/28/2022 02:44:57 Father Disorder of thyroid gland [id number] Not available 05/28/2022 02:44:58 Mother Hypercholest erolemia [id number] [id number] Not available 05/28/2022 02:44:58 Medical History Condition [...] HAVE YOU BEEN HOSPITALIZED OR SEEN IN [facility] IN THE PAST YEAR ? N [...] Diagnosis SNOMED-CT Code Diagnosis ICD10 Code Diagnosis IMO Codes Diagnosis Note [id number] JO Church [facility] [address] [place] [address] 06/11/2020 00:00:00 06/27/2020 12:02:37 [id number] JO Church [facility] [address] [place] [address] 11/08/2020 00:00:00 11/27/2020 16:55:49 [id number] Delon Acosta MD [facility] [address] [place] [address] 08/12/2021 00:00:00 08/26/2021 23:44:09 [id number] JO [facility] [address] [place] [address] 03/06/2022 00:00:00 03/28/2022 00:31:10 [id number] JO [facility] [address] [place] [address] 09/08/2022 10:31:02 09/08/2022 11:06:11 Adult health examination 238843892 Z00.00 annual wellness completed. routine annual labs ordered. Diabetes m ellitus screening 892176456 Z13.1 screening for diabetes ordered. Cholesterol screening 27 0382330 Z13.220 screening fasting lipids. Thyroid di sorder screening 996196203 Z13.29 screening TFTs due. Screening mammography 24 555306 Z12.31 mammogram due. Genital lichen planus 23 1314622 L43.9 on steroid three times weekly from gyne. Health Concerns Section Related Observation LastModified by Organization Detai ls LastModified Time None Recorded Concern Status LastModified by Organization Details LastModified Time None Recorded Advance Directives Directive None Recorded Payers Insurance Date Sequence Insurance Name Policy Number Policy Kline Covered Member ID Kline Member ID Guarantor Name 09/22/2022 1 [place] [id number] Carmen Zapata [id number] Carmen Zapata Notes Date Note Type Note Provider Name and Address Organization Details Recorded Time 09/08/2022 text/html Generic HPI TemplateReported by PatientPt is here for her wellness. No chronic prob/meds. Wellness [facility] [address] [facility] [address], [place], [address], [place] [facility] [place] [employer] 09/21/2022 23:36:28 OBGyn Episode No OBEpisode recorded.
--- OUTSIDE RECORDS SUMMARY | 2025-03-20 15:16 | XMS_ITS | Encounter Summary ---
Author Organization [employer] Address [address] [place] [address] Care Team Providers Care Shift Production Supervisor Name Role Phone Camryn Alonzo MD Primary Care Provider Encounter Details Date Type Department Care Team (Late st Contact Info) Description 12/18/1998 Outpatient Historical [facility] DR. 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
--- OUTSIDE RECORDS SUMMARY | 2025-03-20 15:16 | XMS_ITS | Clinical Summary ---
Author Organization [employer] [facility] Fredy Sawyer Address [address] [place] [address] Care Team Providers Care Business Analytics Manager Name Role Phone Camryn Alonzo MD Primary Care Provider [phone] Allergies Active Allergy Reactions Criticality Noted Date [...] on file Legal Sex Female 3:35 AM MEMBER OF TECHNICAL STAFF Gender Identity Not on file Sexual Orientation Not on file Occupation Industry Job Start Date Job End Date Not on file Not on file Not on file Not on file Last Filed Vital Signs Vital Sign Reading Time Taken Comments Blood Pressure 136/88 04/15/2018 1:51 PM MEMBER OF TECHNICAL STAFF Pulse 65 04/15/2018 1:51 PM MEMBER OF TECHNICAL STAFF Temperature 36.8 C (98.2 F) 04/15/2018 1:51 PM MEMBER OF TECHNICAL STAFF Respiratory Rate 16 02/06/2014 3:57 PM MEMBER OF TECHNICAL STAFF Oxygen Saturation 98% 04/15/2018 1:51 PM MEMBER OF TECHNICAL STAFF Inhaled Oxygen Concentration - - Weight 75 kg (165 lb 4.8 oz) 04/15/2018 1:51 PM MEMBER OF TECHNICAL STAFF Height 167.6 cm (5' 6) 04/15/2018 1:51 PM MEMBER OF TECHNICAL STAFF Body Mass Index 26.68 04/15/2018 1:51 PM MEMBER OF TECHNICAL STAFF Plan of Treatment Health Maintenance Due Date Last Done Comments DTAP/TDAP/TD VACCINES (1 - Tdap) 12/16/1999 HEPATITIS B VACCINES (1 of 3 - 19+ 3-dose series) 12/16/1999 HPV/Cotest (21-29) 2001 HPV/Cotest (30-65) 2010 CERVICAL CANCER SCREENING 05/27/2015 PAP SMEAR 05/27/2015 05/27/2012, 04/30, 05/12/2010 BREAST CANCER SCREENING 2020 02/23/2018, 06/16 INFLUENZA VACCINE (#1) 2024 HPV VACCINES (No Doses Required) Completed Procedures Procedure Name Priority Date/Time Associated Diagnosis Comments MAMMO DIAGNOSTIC BILATERAL W OR WO CAD Routine 02/23/2018 CERV/VAG CYTOPATH, SUREPATH W/RFLX HPV Routine 05/27/2012 1:40 PM MEMBER OF TECHNICAL STAFF Screening for malignant neoplasm of the cervix from Last 3 Months or Most Recently Relevant to Health Maintenance Results * MAMMO DIAGNOSTIC BILATERAL W OR WO CAD (02/23/2018) Anatomical Region Laterality Modality Breast Bilateral Mammography us Abstract Provider MAMMO ORDERABLES Final Result * CERV/VAG CYTOPATH, SUREPATH W/RFLX HPV (05/27/2012 1:40 PM MEMBER OF TECHNICAL STAFF) CLINICAL INFORMATION HEALTHY [facility] S*Bio [facility] LAST MENSTRUAL PERIOD 05/18/2012 [facility] S*Bio [facility] PAP INTERP Negative for intraepithelial lesion or malignancy. [facility] S*Bio [facility] Comment: Performed by [facility], [address] [place] [address] Bus Aide Pap Comment Based on the cytology result, reflex High Risk HPV DNA testing was not performed. [facility] S*Bio [facility] ADEQUACY: Satisfactory for evaluation. Endocervical/trans formation zone component present. [facility] S*Bio [facility] SOURCE Endocervix [facility] S*Bio [facility] PREV PAP: WNL [facility] S*Bio [facility] CYTOTECHNOLOGI ST: KMY, CT(ASCP) [facility] S*Bio [facility] PREV BX: NO [facility] S*Bio [facility] Endocervical 05/27/2012 1:40 PM MEMBER OF TECHNICAL STAFF 05/27/2012 8:30 PM MEMBER OF TECHNICAL STAFF Comment:ENDOCERVICAL Denise Elmore MD PATHOLOGY/CYTOLOGY ORDERABLES E dited [facility] S*Bio [facility] CLIA# [id number] [address] [facility] [address] [facility] [place] [address] from Last 3 Months or Most Recently Relevant to Health Maintenance Insurance [facility] OPT[employer] PPO [id number] Care Teams Business Analytics Manager Relationship Specialty Start Date End Date Camryn Alonzo MD [address] [place] [address] PCP - General Obstetrics and Gynecology 04/06/18
--- OUTSIDE RECORDS SUMMARY | 2025-03-20 15:16 | XMS_ITS | Encounter Summary ---
Author Organization [employer] Address [address] [place] [address] Care Team Providers Care Table Setter Name Role Phone Camryn Alonzo MD Primary Care Provider [phone] Encounter Details Date Type Department Care Team (Late st Contact Info) Description 01/22/1999 Outpatient Historical [facility]. 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
== END 2025-03-20 13:33 | disposition home or self-care (01) ==
PROVIDERS: PCP Physician Assistant; Visit Provider Physician Assistant Surgical
DX: M25.461 Effusion, right knee (principal); M17.11 Unilateral primary osteoarthritis, right knee
CPT/HCPCS: 73721